=== PATIENT | female | born 1950 | race Caucasian/White ===

== ENCOUNTER 2018-11-06 21:48 | Inpatient (IN) | payer BC, MEDICARE ==
[2018-11-06] MEDS ORDERED: Ondansetron ODT 4 MG TAB PO PRN (23:15)
[2018-11-06] MEDS ORDERED: Acetaminophen 325 MG TAB PO PRN (23:15)
[2018-11-06] MEDS ORDERED: Ondansetron PF 4 MG/2 ML Vial IVP PRN (23:15)
[2018-11-06 23:17] VITALS: BMI 25.2
[2018-11-06 23:30] LABS: #Lymphocytes 0.8 thou/uL (1.20-3.40); #Monocytes 0.4 thou/uL (0.11-0.59); #Neutrophils 2.9 thou/uL (1.40-6.50); %Basophils 0.6 % (0.0-1.0); %Eosinophils 0.4 % (0.0-10.0); %Lymphocytes 19.6 % (21.0-51.0); %Monocytes 10.4 % (0.0-10.0); %Neutrophils 69.1 % (42.0-75.0); Mean Corpuscular HGB CONC 33.8 g/dL (32.0-36.0); Mean Corpuscular Hemoglobin 28.6 pg (27.0-31.0); Mean Corpuscular Volume 84.7 fL (78.0-98.0); Mean Platelet Volume 7.3 fL (7.4-10.4); Platelet Count 100 thou/uL (130-400); RBC Distribution Width 15.2 % (11.5-14.5); Red Blood Cell (RBC) Count 1.75 mill/uL (4.20-5.40); White Blood Cell (WBC) Count 4.2 thou/uL (4.8-10.8)
[2018-11-07] MEDS: Cyclobenzaprine 10 MG TAB PO PRN (00:54)
[2018-11-07] MEDS ORDERED: Diclofenac Sodium 50 MG DR TAB PO PRN (03:49)
--- NOTE | 2018-11-07 04:56 | HP ---
CODE STATUS: Full code. TIME OF EVALUATION: 2300 hours. PRIMARY CARE PHYSICIAN: Sherlyn Root MD CHIEF COMPLAINT: Feeling lightheaded and fall. HISTORY OF PRESENT ILLNESS: This is a 68-year-old female patient, who came to the hospital after having an episode of a fall. The patient reported that she does not recall having a total loss of consciousness; however, she did recall having feeling lightheaded, for that reason she fell. She got a fracture in her left upper extremity and she recovered quickly. She was found to have a hemoglobin of 5. She reported that she had the same problem in the past and had been seen by weight loss consultant, however, no official diagnosis had been done. She reported that she recovered with the hemoglobin going up to the range of 10 spontaneously. Today, she was found to have hemoglobin in the same range, given some blood transfusion since the patient most likely has symptomatic anemia, for that reason she fell. REVIEW OF SYSTEMS: CONSTITUTIONAL: No fever or chills. The patient did have generalized weakness. RESPIRATORY: No cough, sputum production, or shortness of breath. CARDIOVASCULAR: No chest pain or palpitation. GASTROINTESTINAL: No nausea, vomiting, diarrhea, or abdominal pain. PHLEBOTOMY SUPERVISOR: No dizziness. The patient was lightheaded, that is why she got the fall. GENITOURINARY: No burning on urination. EXTREMITIES: Left upper extremity has decreased range of motion, pain, and swelling secondary to fall. All other systems were reviewed and negative except for the findings mentioned above. PAST MEDICAL HISTORY: Positive for chronic anemia. PAST SURGICAL HISTORY: Colonoscopy 3 years ago. FAMILY HISTORY: Reviewed, noncontributory for current presentation. ALLERGIES: NO REPORTED ALLERGIES. REPORTED MEDICATIONS: Cyclobenzaprine, diclofenac sodium, lisinopril. PHYSICAL EXAMINATION: VITAL SIGNS: On presentation, the patient presented with temperature 98.9, respiratory rate was 16, oxygen saturation was 99, heart rate was 119 on initial presentation and has improved now, and blood pressure 110/55. GENERAL APPEARANCE: The patient is alert, oriented, not in acute distress. HEENT: Eyes, normal conjunctivae. Moist oral mucosa. Anicteric. RESPIRATORY: Bilateral air entry. No rales. No wheezes. Symmetric expansion. CARDIOVASCULAR: The patient has tachycardia, regular rhythm. No murmurs. No gallops. Bilateral leg edema. ABDOMEN: Soft. Normal bowel sounds. MUSCULOSKELETAL: Baseline range of motion and strength except for the left upper extremity, where she had a fracture of the left shoulder. SKIN: Warm, intact. No pallor. No rash. No redness. Peripheral pulses are present. Capillary refill seems to be intact. NEUROLOGIC: No evidence of any new focal weakness. Cranial nerves seems to be intact. PSYCHIATRIC: The patient is in good mood. No anxiety. Optimal judgment. IMAGING STUDIES: EKG was reviewed. The patient has sinus tachycardia at the rate of 119. QRS interval was normal. QT corrected was normal. The patient has a left shoulder x-ray that showed fracture through the surgical neck of the humerus with displacement of the humeral shaft fracture fragment as discussed above. LABORATORY DATA: Labs were reviewed. The patient has white count of 5.3, hemoglobin of 5, hematocrit 17, MCV 87, and platelets 142. CMP; sodium 136, CO2 of 22, potassium 3.9, chloride 102, glucose 104, calcium 9.5, BUN 22, creatinine 0.8, alkaline phosphatase 76, ALT 49, and AST 70. D-dimer was done and it was high. Chest x-ray showed no acute finding. ASSESSMENT AND PLAN: The patient will be placed in the hospital with following medical problems: 1. Severe anemia. The patient has a hemoglobin of 5. This is a chronic problem, has been present before, had resolved by itself. We will transfuse 2 units, we will monitor. The patient has been clinically stable, looks like this is a chronic problem. 2. The patient has left fracture of the humeral head, the patient already got an immobilization of the left upper extremity, this is something like can be followed as outpatient unless otherwise specified by Orthopedics. 3. Positive D-dimer. The patient had a near-syncope episode, presented with tachycardia. We will order CT angio to rule out pulmonary embolism. We will follow and treat accordingly. 4. Controlled hypertension. Reconcile home medications. Adjust treatment as needed. 5. Deep venous thrombosis prophylaxis. Job ID: [id number]
[2018-11-07] MEDS ORDERED: Calcium Carbonate 500 MG ChewTAB PO PRN (07:18)
[2018-11-07] MEDS ORDERED: Bisacodyl 10 MG SUPP PR PRN (07:18)
[2018-11-07] MEDS ORDERED: Zolpidem Tartrate 5 MG TAB PO PRN (07:18)
[2018-11-07] MEDS ORDERED: Loratadine 10 MG TAB PO PRN (07:18)
[2018-11-07] MEDS ORDERED: Diabetic Tussin 200 MG/10 ML UDCUP PO PRN (07:18)
[2018-11-07] MEDS ORDERED: Sodium Chloride 0.65% Nasal 44 ML BOT EA NARE PRN (07:18)
[2018-11-07] MEDS ORDERED: Artificial Tears 18 DROP/0.9 ML EA EYE PRN (07:18)
[2018-11-07] MEDS ORDERED: hydrALAZINE 20 MG/ML VIAL SLOW IVP PRN (07:18)
[2018-11-07] MEDS ORDERED: Bisacodyl 5 MG TAB PO PRN (07:18)
[2018-11-07] MEDS ORDERED: Cepastat Lozenges 1 LOZ PO PRN (07:18)
[2018-11-07] MEDS ORDERED: Loperamide HCl 2 MG CAP PO PRN (07:18)
[2018-11-07 08:25] LABS: Reticulocyte Count 5.2 % (0.5-1.5)
[2018-11-07 08:47] LABS: ALT (SGPT) 41 U/L (8-55); AST (SGOT) 59 U/L (5-34); Albumin 3.1 g/dL (3.4-4.8); Alkaline Phosphatase 85 U/L (40-150); Anion Gap 10 mmol/L (10-20); BUN (Urea Nitrogen) 20 mg/dL (9.8-20.1); Bilirubin, Total 1.3 mg/dL (0.2-1.2); Calc. Creatinine Clearance 77 mL/min (70-130); Calcium 9.7 mg/dL (7.8-10.44); Carbon Dioxide 23 mmol/L (23-31); Chloride 103 mmol/L (98-107); Estimated GFR-MDRD 75; Globulin 2.6 g/dL (2.4-3.5); Glucose 103 mg/dL (80-115); Iron 50 ug/dL (50-170); Iron Binding Capacity, Total 431 mcg/dL (265-497); Potassium 4.4 mmol/L (3.5-5.1); Protein, Total 5.7 g/dL (6.0-8.3); Sodium 132 mmol/L (136-145)
[2018-11-07] MEDS ORDERED: Lisinopril/Hydrochlorothiazide 20/25 mg Tablet PO SCH (09:00)
[2018-11-07] MEDS ORDERED: Prevnar 13-Val Conj/PF 0.5 ML SYRINGE IM ONE (09:00)
[2018-11-07 09:05] LABS: Ferritin 20.36 ng/mL (10-291); Thyroid Stimulating Hormone 2.6853 uIU/mL (0.35-4.94)
[2018-11-07 09:19] LABS: Folate (Folic Acid) 6.6 ng/mL (7.0-31.4)
--- NOTE | 2018-11-07 10:17 | PDOC.PN ---
- Subjective Encounter Start Date: 11/07/18 Encounter Start Time: 08:00 -: old records requested/rev pt has received 2 unit of PRBC , she feels weak, no ramona Patient seen and examined. No new complaints. No overnight events - Objective Resuscitation Status - Order Detail: 11/06/18 23:15 Resuscitation Status Routine Resuscitation Status: FULL: Full Resuscitation Discussed with: pt MAR Reviewed: Yes Vital Signs & Weight: Vital Signs (12 hours) Temp Pulse Pulse Resp BP BP Pulse Ox 11/07/18 07:00 98.5 F 100 18 108/62 95 11/07/18 04:11 97.6 F 103 H 14 117/67 94 L 11/07/18 03:55 98.2 F 104 H 16 109/58 L 94 L 11/07/18 03:48 98.0 F 103 H 16 108/60 94 L 11/07/18 03:28 98.2 F 104 H 16 109/58 L 11/07/18 01:28 99 F 108 H 16 109/58 L 93 L 11/07/18 01:09 98.9 F 119 H 16 110/55 L 99 Weight Weight 156 lb 4.8 oz I&O: 11/06/18 11/07/18 11/08/18 06:59 06:59 06:59 Intake Total 350 Balance 350 Result Diagrams: 11/06/18 23:05 11/07/18 08:11 EKG Reviewed by me: Yes (nsr) Phys Exam - Physical Examination Constitutional: NAD HEENT: PERRLA, moist MMs, sclera anicteric pallor+ Neck: no JVD, supple Respiratory: no wheezing, no rales, no rhonchi Cardiovascular: RRR, no significant murmur, no rub Gastrointestinal: soft, non-tender, no distention, positive bowel sounds Musculoskeletal: no edema, pulses present Neurological: non-focal, normal sensation, moves all 4 limbs Lymphatic: no nodes Psychiatric: normal affect, A&O x 3 Skin: no rash, normal turgor Dx/Plan (1) Symptomatic anemia Code(s): D64.9 - ANEMIA, UNSPECIFIED Status: Acute Comment: iron defi and folate defi (2) Left humeral fracture Code(s): S42.302A - UNSP FRACTURE OF SHAFT OF HUMERUS, LEFT ARM, INIT Status: Acute (3) Thrombocytopenia Code(s): D69.6 - THROMBOCYTOPENIA, UNSPECIFIED Status: Acute (4) Hypertension Code(s): I10 - ESSENTIAL (PRIMARY) HYPERTENSION Status: Chronic - Plan cont current plan of care * Anemia work up sent * will check stool for guiac * will consult GI for endoscopic evaluation * medication reviewed as below * symptomatic treatment * repeat labs tomorrow. Review of Systems - Review of Systems ENT: negative: Ear Pain, Ear Discharge, Nose Pain, Nose Discharge, Nose Congestion, Mouth Pain, Mouth Swelling, Throat Pain, Throat Swelling, Other Respiratory: negative: Cough, Dry, Shortness of Breath, Hemoptysis, SOB with Excertion, Pleuritic Pain, Sputum, Wheezing Cardiovascular: negative: chest pain, palpitations, orthopnea, paroxysmal nocturnal dyspnea, edema, light headedness, other Gastrointestinal: negative: Nausea, Vomiting, Abdominal Pain, Diarrhea, Constipation, Melena, Hematochezia, Other Genitourinary: negative: Dysuria, Frequency, Incontinence, Hematuria, Retention , Other Musculoskeletal: negative: Neck Pain, Shoulder Pain, Arm Pain, Back Pain, Hand Pain, Leg Pain, Foot Pain, Other Skin: negative: Rash, Lesions, Cristian, Bruising, Other - Medications/Allergies Allergies/Adverse Reactions: Allergies Allergy/AdvReac Type Severity Reaction Status Date / Time No Known Drug Allergies Allergy Verified 11/06/18 22:30 Medications: Current Medications Acetaminophen (Tylenol) 650 mg PO Q4H PRN PRN Reason: Headache/Fever/Mild Pain (1-3) Last Admin: 11/07/18 07:26 Dose: 650 mg Hydrocodone Bitart/Acetaminophen ([place] 5/325) 1 tab PO Q4H PRN PRN Reason: Moderate Pain (4-6) Artificial Tears (Tears Naturale) 2 drop EA EYE PRN PRN PRN Reason: Dry Eyes Bisacodyl (Dulcolax) 10 mg [place] DAILYPRN PRN PRN Reason: Constipation Bisacodyl (Dulcolax) 10 mg PO DAILYPRN PRN PRN Reason: Constipation Calcium Carbonate (Tums) 1,000 mg PO Q4H PRN PRN Reason: Heartburn or Indigestion Cyanocobalamin (Vitamin B-12) 1,000 mcg PO DAILY [facility] Cyclobenzaprine HCl (Flexeril) 10 mg PO BIDPRN PRN PRN Reason: Pain Last Admin: 11/07/18 00:54 Dose: 10 mg Folic Acid (Folvite) 1 mg PO DAILY [facility] Guaifenesin (Robitussin Sf) 200 mg PO Q4H PRN PRN Reason: Cough Hydralazine HCl (Apresoline) 10 mg SLOW IVP Q4H PRN PRN Reason: SBP > 180 and HR < 70 Loperamide HCl (Imodium) 2 mg PO PRN PRN PRN Reason: Diarrhea/Loose Stools Loratadine (Claritin) 10 mg PO DAILYPRN PRN PRN Reason: Sinus Symptoms Ondansetron HCl (Zofran Odt) 4 mg PO Q6H PRN PRN Reason: Nausea/Vomiting Ondansetron HCl (Zofran) 4 mg IVP Q6H PRN PRN Reason: Nausea/Vomiting Pantoprazole Sodium (Protonix) 40 mg PO DAILY [facility] Last Admin: 11/07/18 09:11 Dose: 40 mg Senna/Docusate Sodium (Senokot S) 2 tab PO BID PRN PRN Reason: Constipation Sodium Chloride (Flush - Normal Saline) 10 ml IVF PRN PRN PRN Reason: Saline Flush Sodium Chloride ([place] Nasal [place] 0.65%) 0 ml EA NARE QIDPRN PRN PRN Reason: Nasal Congestion Throat Lozenges (Cepastat Lozenges) 1 evangelist PO Q2H PRN PRN Reason: Sore Throat Zolpidem Tartrate (Ambien) 5 mg PO HSPRN PRN PRN Reason: Insomnia
--- NOTE | 2018-11-07 11:11 | CT ---
EXAM: CTA of the chest HISTORY: Shortness of breath; left humeral fracture. Elevated d-dimer. COMPARISON: None TECHNIQUE: Multiple contiguous axial images were obtained a CTA of the chest with contrast per pulmon nba embolism protocol. 3-D oblique MIP reformats and direct coronal reformats were performed. FINDINGS: HEART: Normal in size without focal cardiac abnormality. PULMONARY ARTERIES: Normal in caliber without filling defects to suggest pulmonary emboli. MEDIASTINUM: No hilar or mediastinal lymphadenopathy. LUNGS: No focal infiltrates or masses. Left basilar atelectasis. PLEURAL SPACE: No pleural effusion or pneumothorax. CHEST WALL SOFT TISSUES: Unremarkable VISUALIZED OSSEOUS STRUCTURES: Left proximal humerus fracture with surrounding soft tissue swelling. Degenerative changes in the spine. VISUALIZED SUBDIAPHRAGMATIC STRUCTURES: The spleen is enlarged measuring 14.9 cm in length. There is a 2.2 cm right renal cyst. The liver appears nodular and cirrhotic. IMPRESSION: 1. No evidence of pulmonary thromboembolism 2. Cirrhosis with sequela of portal hypertension 3. Left humerus fracture 4. Right renal cyst
--- NOTE | 2018-11-07 13:17 | RAD ---
EXAM: 2 views of the left shoulder HISTORY: Shoulder pain COMPARISON: None FINDINGS: There is a fracture of the proximal diaphysis of the humerus. No dislocation is seen. No de generative changes are present. No soft tissue swelling is seen. The visualized thorax is unremarkable. IMPRESSION: Left proximal humerus fracture.
[2018-11-07] MEDS: HYDROcodone/Acetaminophen 5/325 mg Tablet PO PRN ×2 (15:34→20:32)
[2018-11-07] MEDS ORDERED: ISOVUE-370 76%-LOCM 1 ML ONE (15:40)
[2018-11-07 15:46] LABS: Bilirubin Negative (Negative); Blood, Urine Negative (Negative); Clarity CLEAR (Clear); Glucose, Urine (Dipstick) Negative (Negative); Leukocyte Negative (Negative); Nitrite Negative (Negative); Protein, Urine (Dipstick) Negative (Neg-Trace); Specific Gravity, Urine 1.016 (1.002-1.036); pH, Urine 7.5 (5.0-9.0)
[2018-11-07] MEDS ORDERED: GoLYTELY 4,000 ml Bottle PO SCH (18:15)
[2018-11-07 19:04] LABS: Hemoglobin 7.4 g/dL (12.0-16.0)
--- NOTE | 2018-11-07 22:41 | CON ---
DATE OF CONSULTATION: 11/07/2018 CHIEF COMPLAINT: Anemia. HISTORY OF PRESENT ILLNESS: Ms. Nieto is a 68-year-old woman who came into the emergency room after she had a fall and felt lightheaded and dizzy preceding that. She was found to have severe anemia with a hemoglobin of 5 during evaluation in the ER. She also had a fracture of the left proximal humerus and is in a sling for that. She has had no nausea or vomiting. She had 2 black stools over the last month. She has had no abdominal pain, diarrhea, constipation, or blood in the stool. She has had some sciatic back pain and was started on diclofenac and cyclobenzaprine several days ago. PAST MEDICAL HISTORY: Positive for hypertension. PAST SURGICAL HISTORY: She had colonoscopy in August of [address] Richardson, this was normal. FAMILY HISTORY: Positive for colon cancer in her maternal uncle and maternal grandfather. SOCIAL HISTORY: No alcohol, tobacco, or drugs. ALLERGIES: NO KNOWN DRUG ALLERGIES. MEDICATIONS: Prior to admission: 1. Lisinopril for no more than a week. 2. She has been on diclofenac and cyclobenzaprine. REVIEW OF SYSTEMS: Negative x10 systems reviewed except as stated in history of present illness. PHYSICAL EXAMINATION: VITAL SIGNS: Temperature is 98.5, pulse 99, blood pressure 112/59. GENERAL: She is in no acute distress. She is alert and oriented x3. EYES: Have no scleral icterus. Oropharynx is clear without lesions. NECK: No cervical or supraclavicular lymphadenopathy. LUNGS: Clear to auscultation bilaterally. HEART: Regular rate and rhythm without murmur. ABDOMEN: Soft, nontender, and nondistended. Bowel sounds are present. No hepatomegaly. EXTREMITIES: No lower extremity edema. LABORATORY DATA: White blood cell count 4.2, hemoglobin 5.0, platelets 100. Reticulocyte count 5.2, creatinine 0.76, iron 50, TIBC 431, ferritin 20.36. Bilirubin 1.3, AST 59, ALT 41, alkaline phosphatase 85, albumin 3.1. IMPRESSION: 1. Severe iron deficiency anemia without significant overt bleeding. We will need to rule out gastrointestinal bleeding source. 2. Pancytopenia with low white blood cell count, hemoglobin and platelet count. Her platelets and white count have been low chronically. However, her last hemoglobin in 2015 was 12.8. 3. Mild elevation of the liver function test. The AST is greater than the ALT with a mildly elevated bilirubin. Her albumin is a little low. INR is 1.2. We should plan for ultrasound of the liver and viral hepatitis screen for initial workup. 4. We will want to include the spleen size in the ultrasound as well. RECOMMENDATIONS: 1. EGD and colonoscopy tomorrow. 2. Ultrasound of the abdomen. 3. We will start with the viral hepatitis panel. Job ID: [id number]
[2018-11-08] MEDS: HYDROcodone/Acetaminophen 5/325 mg Tablet PO PRN ×5 (03:55→23:22)
[2018-11-08 05:25] LABS: #Lymphocytes 0.5 thou/uL (1.20-3.40); #Monocytes 0.3 thou/uL (0.11-0.59); #Neutrophils 1.9 thou/uL (1.40-6.50); %Basophils 0.6 % (0.0-1.0); %Eosinophils 1.7 % (0.0-10.0); %Lymphocytes 17.3 % (21.0-51.0); %Monocytes 10.3 % (0.0-10.0); %Neutrophils 70.1 % (42.0-75.0); Hemoglobin 8.4 g/dL (12.0-16.0); Mean Corpuscular HGB CONC 34.9 g/dL (32.0-36.0); Mean Corpuscular Hemoglobin 30.4 pg (27.0-31.0); Mean Platelet Volume 7.2 fL (7.4-10.4); Platelet Count 77 thou/uL (130-400); RBC Distribution Width 14.9 % (11.5-14.5); Red Blood Cell (RBC) Count 2.75 mill/uL (4.20-5.40); White Blood Cell (WBC) Count 2.7 thou/uL (4.8-10.8)
[2018-11-08 05:27] LABS: ALT (SGPT) 46 U/L (8-55); AST (SGOT) 72 U/L (5-34); Albumin 3.4 g/dL (3.4-4.8); Alkaline Phosphatase 89 U/L (40-150); Anion Gap 13 mmol/L (10-20); BUN (Urea Nitrogen) 14 mg/dL (9.8-20.1); Bilirubin, Total 2.1 mg/dL (0.2-1.2); Calc. Creatinine Clearance 77 mL/min (70-130); Calcium 9.3 mg/dL (7.8-10.44); Carbon Dioxide 26 mmol/L (23-31); Chloride 93 mmol/L (98-107); Estimated GFR-MDRD 75; Globulin 2.5 g/dL (2.4-3.5); Glucose 108 mg/dL (80-115); Potassium 3.5 mmol/L (3.5-5.1); Protein, Total 5.9 g/dL (6.0-8.3); Sodium 128 mmol/L (136-145)
[2018-11-08 05:53] LABS: HBSAB Concentration 1.91 mIU/mL; HBSAg Index 0.27 S/CO (0-0.99); Hep B Core Total Ab Non-Reactive (NonReactive); Hep B Surf AB Non-Reactive (NonReactive); Hep B Surf Ag Non-Reactive S/CO (NonReactive); Hep C IgG Ab Non-Reactive (NonReactive); Hep C Index 0.08 S/CO (0-0.79)
--- NOTE | 2018-11-08 08:42 | CON ---
DATE OF CONSULTATION: 11/08/2018 This is Josephine Carrero PA-C dictating a report for Lalito Britton MD. REASON FOR CONSULTATION: Left proximal humerus fracture. CONSULTING PHYSICIAN: Dr. Lalito Britton. HISTORY OF PRESENT ILLNESS: This is a 68-year-old female, who came to the hospital 2 days ago for weakness and having a fall at home. The patient states that she was re-quan her house when she felt dizzy and lightheaded. She fell and hurt her left upper extremity. She has been admitted for anemia after she was found to have a hemoglobin of 5 at an outside facility emergency department and transferred to our facility. Since her admission, she has been given several units of blood. Her hemoglobin is now up to 8. She is receiving an EGD today. Currently at bedside , the patient states she is right-hand dominant. She complains of left upper extremity pain. This is worse with movement and relieved with rest. She has been in a sling since being in the hospital. She denies any numbness or tingling. She did not have any other injuries at the time of her fall. PAST MEDICAL HISTORY: Significant for chronic anemia. SURGICAL HISTORY: Colonoscopy 3 years ago. FAMILY HISTORY: Reviewed and noncontributory. SOCIAL HISTORY: Denies any alcohol, tobacco use, or drugs. ALLERGIES: NO KNOWN DRUG ALLERGIES. REVIEW OF SYSTEMS: A 10-point review of systems conducted and otherwise negative except for stated above. PHYSICAL EXAMINATION: VITAL SIGNS: Current vital signs show a blood pressure of 109/64, temperature of 98.2, pulse of 96, and respiratory rate of 18. GENERAL: The patient is awake and alert. She is in no apparent distress. She is pleasant and cooperative with exam today. HEENT: Normocephalic and atraumatic. NECK: Supple. Trachea midline. LUNGS: Breathing nonlabored. EXTREMITIES: The left upper extremity was evaluated. There is a sling intact to the arm. There is ecchymosis and soft tissue swelling present over the proximal humerus area. This is tender to palpation. The patient is able to move all digits. Distal neurovascular status is intact. All the other extremities were evaluated and no obvious injuries are noted. LABORATORY DATA: Reviewed, which shows hospital admission hemoglobin and hematocrit of 5.0 and 14.8. Today, her hemoglobin and hematocrit are 8.4 and 23.9. DIAGNOSTIC STUDIES: Radiographic imaging taken yesterday shows evidence of a proximal 2-part humerus fracture with displacement and overlapping. ASSESSMENT: Left proximal humerus fracture with displacement. PLAN: At this time, Dr. Britton and I have reviewed the x-rays today. We would like to remove the sling and allow gravity to pull this arm hopefully and reduce the displacement. The patient is going for an EGD today. We would like to give this 1 week's time and see how she does. See her back in the clinic in 1 week and make a decision at that point for surgery or nonoperative care. We will perform new x- rays in the clinic at that time. In the meantime, we will remove the sling when she returns back from her EGD. We will order a shoulder immobilizer that allows for gravity to pull at the elbow. Job ID: [id number] [facility]
[2018-11-08] MEDS: Folic Acid 1 MG TAB PO SCH (09:06)
[2018-11-08] MEDS: Cyanocobalamin (Vitamin B-12) 1,000 MCG TAB PO SCH (09:06)
--- NOTE | 2018-11-08 09:13 | ULT ---
US Abdominal: 11/08/2018 8:00 AM CLINICAL HISTORY: Pancytopenia and elevated LFTs. STUDY: Complete abdominal ultrasound COMPARISON: None. FINDINGS: Liver: Size: Normal. Echogenicity: Normal. Contour: Nodular consistent with cirrhosis. Mass: None. Common bile duct: 5 mm Gallbladder: Normal. Pancreas: Mild prominence of the pancreatic duct measuring 3 mm. Inferior vena cava: Normal in caliber Aorta: Normal in caliber Spleen: No focal lesions. Spleen measuring 15.6 cm in length. Right kidney: No pelvicalyceal dilatation. Right kidney measuring 9.8 cm in length. Right renal cyst measuring 1.8 cm in size. Left kidney: No pelvicalyceal dilatation. Right kidney measuring 9.9 cm in length. IMPRESSION: 1. Cirrhotic liver with sequelae of portal hypertension 2. Right renal cyst
--- NOTE | 2018-11-08 09:58 | PDOC.PN ---
- Subjective Encounter Start Date: 11/08/18 Encounter Start Time: 08:30 Patient seen and examined. No new complaints. No overnight events - Objective Resuscitation Status - Order Detail: 11/06/18 23:15 Resuscitation Status Routine Resuscitation Status: FULL: Full Resuscitation Discussed with: pt PALMA Reviewed: Yes Vital Signs & Weight: Vital Signs (12 hours) Temp Pulse Pulse Resp BP BP Pulse Ox 11/08/18 08:00 98.4 F 103 H 17 119/85 96 11/08/18 04:00 98.2 F 96 18 109/64 98 11/08/18 03:45 99.6 F 95 18 147/82 H 93 L 11/07/18 23:13 97.4 F L 94 16 141/80 H Weight Weight 156 lb 4.8 oz I&O: 11/07/18 11/08/18 11/09/18 06:59 06:59 06:59 Intake Total 350 1300 Output Total 800 Balance 350 500 Result Diagrams: 11/08/18 04:19 11/08/18 04:19 Radiology Reviewed by me: Yes (CTA chest , US abdomen noted) EKG Reviewed by me: Yes (nsr) Phys Exam - Physical Examination Constitutional: NAD HEENT: PERRLA, moist MMs, sclera anicteric Neck: no JVD, supple Respiratory: no wheezing, no rales, no rhonchi Cardiovascular: RRR, no significant murmur, no rub Gastrointestinal: soft, non-tender, no distention, positive bowel sounds Musculoskeletal: no edema, pulses present Neurological: non-focal, normal sensation, moves all 4 limbs Lymphatic: no nodes Psychiatric: normal affect, A&O x 3 Skin: no rash, normal turgor Dx/Plan (1) Symptomatic anemia Code(s): D64.9 - ANEMIA, UNSPECIFIED Status: Acute Comment: iron defi and folate defi (2) Left humeral fracture Code(s): S42.302A - UNSP FRACTURE OF SHAFT OF HUMERUS, LEFT ARM, INIT Status: Acute (3) Thrombocytopenia Code(s): D69.6 - THROMBOCYTOPENIA, UNSPECIFIED Status: Acute (4) Hypertension Code(s): I10 - ESSENTIAL (PRIMARY) HYPERTENSION Status: Chronic (5) Cirrhosis of liver Code(s): K74.60 - UNSPECIFIED CIRRHOSIS OF LIVER Status: Chronic Qualifiers: Hepatic cirrhosis type: alcoholic cirrhosis (6) Pancytopenia Code(s): D61.818 - OTHER PANCYTOPENIA Status: Chronic (7) Folate deficiency Code(s): E53.8 - DEFICIENCY OF OTHER SPECIFIED B GROUP VITAMINS Status: Chronic - Plan cont current plan of care * suspecting alcoholic cirrhosis given her history of alcohol abuse in past * today EGD and colonoscopy * medication reviewed as below * symptomatic treatment * Dc tele * transfer to medical * repeat labs tomorrow. Review of Systems - Review of Systems ENT: negative: Ear Pain, Ear Discharge, Nose Pain, Nose Discharge, Nose Congestion, Mouth Pain, Mouth Swelling, Throat Pain, Throat Swelling, Other Respiratory: negative: Cough, Dry, Shortness of Breath, Hemoptysis, SOB with Excertion, Pleuritic Pain, Sputum, Wheezing Cardiovascular: negative: chest pain, palpitations, orthopnea, paroxysmal nocturnal dyspnea, edema, light headedness, other Gastrointestinal: negative: Nausea, Vomiting, Abdominal Pain, Diarrhea, Constipation, Melena, Hematochezia, Other Genitourinary: negative: Dysuria, Frequency, Incontinence, Hematuria, Retention , Other Musculoskeletal: negative: Neck Pain, Shoulder Pain, Arm Pain, Back Pain, Hand Pain, Leg Pain, Foot Pain, Other Skin: negative: Rash, Lesions, Cristian, Bruising, Other - Medications/Allergies Allergies/Adverse Reactions: Allergies Allergy/AdvReac Type Severity Reaction Status Date / Time No Known Drug Allergies Allergy Verified 11/06/18 22:30 Medications: Current Medications Acetaminophen (Tylenol) 650 mg PO Q4H PRN PRN Reason: Headache/Fever/Mild Pain (1-3) Last Admin: 11/07/18 07:26 Dose: 650 mg Hydrocodone Bitart/Acetaminophen ([place] 5/325) 1 tab PO Q4H PRN PRN Reason: Moderate Pain (4-6) Last Admin: 11/08/18 09:06 Dose: 1 tab Artificial Tears (Tears Naturale) 2 drop EA EYE PRN PRN PRN Reason: Dry Eyes Bisacodyl (Dulcolax) 10 mg [place] DAILYPRN PRN PRN Reason: Constipation Bisacodyl (Dulcolax) 10 mg PO DAILYPRN PRN PRN Reason: Constipation Calcium Carbonate (Tums) 1,000 mg PO Q4H PRN PRN Reason: Heartburn or Indigestion Cyanocobalamin (Vitamin B-12) 1,000 mcg PO DAILY [facility] Last Admin: 11/08/18 09:06 Dose: 1,000 mcg Cyclobenzaprine HCl (Flexeril) 10 mg PO BIDPRN PRN PRN Reason: Pain Last Admin: 11/07/18 00:54 Dose: 10 mg Folic Acid (Folvite) 1 mg PO DAILY [facility] Last Admin: 11/08/18 09:06 Dose: 1 mg Guaifenesin (Robitussin Sf) 200 mg PO Q4H PRN PRN Reason: Cough Hydralazine HCl (Apresoline) 10 mg SLOW IVP Q4H PRN PRN Reason: SBP > 180 and HR < 70 Loperamide HCl (Imodium) 2 mg PO PRN PRN PRN Reason: Diarrhea/Loose Stools Loratadine (Claritin) 10 mg PO DAILYPRN PRN PRN Reason: Sinus Symptoms Ondansetron HCl (Zofran Odt) 4 mg PO Q6H PRN PRN Reason: Nausea/Vomiting Ondansetron HCl (Zofran) 4 mg IVP Q6H PRN PRN Reason: Nausea/Vomiting Pantoprazole Sodium (Protonix) 40 mg PO DAILY [facility] Last Admin: 11/08/18 09:06 Dose: 40 mg Senna/Docusate Sodium (Senokot S) 2 tab PO BID PRN PRN Reason: Constipation Sodium Chloride (Flush - Normal Saline) 10 ml IVF PRN PRN PRN Reason: Saline Flush Sodium Chloride ([place] Nasal [place] 0.65%) 0 ml EA NARE QIDPRN PRN PRN Reason: Nasal Congestion Throat Lozenges (Cepastat Lozenges) 1 evangelist PO Q2H PRN PRN Reason: Sore Throat Zolpidem Tartrate (Ambien) 5 mg PO HSPRN PRN PRN Reason: Insomnia
--- NOTE | 2018-11-08 16:25 | OP ---
DATE OF PROCEDURE: 11/08/2018 PROCEDURES PERFORMED: Esophagogastroduodenoscopy with biopsy and colonoscopy with control of hemorrhage and snare polypectomy. PREOPERATIVE DIAGNOSIS: Severe iron deficiency anemia. DESCRIPTION OF PROCEDURE: Informed consent was obtained from the patient. She was sedated with total intravenous anesthesia. A bite block was placed, and the endoscope was advanced easily to the second portion of the duodenum, and retroflexion was performed in the stomach. The esophagus had grade C ulcerative esophagitis in the distal esophagus. Biopsies were obtained to rule out Cui esophagus. There was a small hiatal hernia present. 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 The stomach had portal hypertensive gastropathy diffusely through the body and fundus, which was moderate to severe. Erythematous gastritis was present in the antrum, and biopsies were obtained to rule out Helicobacter pylori. The pylorus and first and second portions of the duodenum were normal. Duodenal biopsies were taken to rule out celiac disease. The patient was turned around. Rectal exam was performed and revealed external hemorrhoids. The colonoscope was advanced to the cecum, where the ileocecal valve and appendiceal orifice were clearly identified. The preparation quality was excellent. There were four AVMs, arteriovenous malformations, cauterized in the proximal ascending colon. One measured 5 mm in diameter and the others ranged from 2 to 4 mm in diameter. One of these oozed actively prior to cautery. A 5 mm polyp was removed by snare cautery polypectomy from the ascending colon. The remainder of the colonic mucosa was normal. Retroflex views in the rectum were unremarkable. IMPRESSION: 1. Grade C ulcerative esophagitis. Biopsy to rule out Cui esophagus. 2. Small hiatal hernia. 3. Diffuse portal hypertensive gastropathy. 4. Otherwise normal esophagogastroduodenoscopy. 5. Four vascular ectasias cauterized in the ascending colon. One of these is actively bleeding with good hemostasis achieved. 6. A 5 mm ascending colon polyp that was removed by snare cautery polypectomy. 7. Otherwise normal colonoscopy. 8. Cirrhosis of the liver. Ultrasound confirms a nodular contour to the liver with splenomegaly. She also has thrombocytopenia and elevated AST greater than the ALT with elevated bilirubin. RECOMMENDATIONS: 1. Await histopathology. 2. Proton pump inhibitor twice daily. 3. Check alpha-fetoprotein. 4. Further lab workup of the liver pending viral hepatitis screen. Job ID: [id number]
[2018-11-08] MEDS ORDERED: PHENYLEPHRINE-NS 100 MCG/ML 10 ML SYRINGE ONE (16:39)
[2018-11-08] MEDS ORDERED: PROPOFOL 200 MG/20 ML VIAL ONE (16:39)
[2018-11-08] MEDS: Senokot S 8.6-50 MG TAB PO PRN (20:57)
[2018-11-09] MEDS: HYDROcodone/Acetaminophen 5/325 mg Tablet PO PRN ×4 (03:28→20:42)
[2018-11-09 06:08] LABS: #Eosinphils 0.1 thou/uL (0.0-0.7); #Lymphocytes 0.5 thou/uL (1.20-3.40); #Monocytes 0.3 thou/uL (0.11-0.59); #Neutrophils 1.3 thou/uL (1.40-6.50); %Basophils 0.5 % (0.0-1.0); %Eosinophils 3.9 % (0.0-10.0); %Lymphocytes 23.7 % (21.0-51.0); %Monocytes 14.2 % (0.0-10.0); %Neutrophils 57.8 % (42.0-75.0); Hemoglobin 7.6 g/dL (12.0-16.0); Mean Corpuscular HGB CONC 33.5 g/dL (32.0-36.0); Mean Corpuscular Hemoglobin 29.9 pg (27.0-31.0); Mean Corpuscular Volume 89.2 fL (78.0-98.0); Mean Platelet Volume 7.3 fL (7.4-10.4); Platelet Count 69 thou/uL (130-400); RBC Distribution Width 15.3 % (11.5-14.5); Red Blood Cell (RBC) Count 2.53 mill/uL (4.20-5.40); White Blood Cell (WBC) Count 2.2 thou/uL (4.8-10.8)
[2018-11-09 06:25] LABS: Anion Gap 11 mmol/L (10-20); BUN (Urea Nitrogen) 11 mg/dL (9.8-20.1); Calc. Creatinine Clearance 85 mL/min (70-130); Calcium 8.7 mg/dL (7.8-10.44); Carbon Dioxide 23 mmol/L (23-31); Chloride 102 mmol/L (98-107); Estimated GFR-MDRD 84; Glucose 103 mg/dL (80-115); Potassium 3.6 mmol/L (3.5-5.1); Sodium 132 mmol/L (136-145)
[2018-11-09] MEDS: Senokot S 8.6-50 MG TAB PO PRN (09:00)
[2018-11-09] MEDS: Folic Acid 1 MG TAB PO SCH (09:01)
[2018-11-09] MEDS: Cyanocobalamin (Vitamin B-12) 1,000 MCG TAB PO SCH (09:01)
[2018-11-09] MEDS: Cyclobenzaprine 10 MG TAB PO PRN (13:28)
--- NOTE | 2018-11-09 13:50 | PRG ---
DATE OF SERVICE: SUBJECTIVE: Ms. Nieto has had no abdominal pain or diarrhea or overt bleeding. She has no acute complaints this morning. OBJECTIVE: VITAL SIGNS: Temperature is 98.3, pulse 103, blood pressure 112/72. GENERAL: She is in no acute distress. Alert and oriented x3. HEENT: Eyes have no scleral icterus. Oropharynx is clear without lesions. NECK: No cervical or supraclavicular lymphadenopathy. LUNGS: Clear to auscultation bilaterally. HEART: Mildly tachycardic. S1 and S2. ABDOMEN: Soft, nontender, and nondistended. Bowel sounds are present. EXTREMITIES: No lower extremity edema. LABORATORY DATA: Sodium 132, creatinine 0.69, bilirubin 2.1. AST 72, ALT 46, alkaline phosphatase 89, albumin 3.4. White blood cell count 2.2, hemoglobin 7.6, platelets 69,000. Viral hepatitis B and C are negative. IMPRESSION: 1. Chronic anemia of GI blood loss with acute anemia of GI blood loss as well. This is likely secondary to the portal hypertensive gastropathy and severe erosive esophagitis. She also had vascular ectasias in the ascending colon, which had some active bleeding at the time of the procedure and these were cauterized. 2. Cirrhosis of the liver. This is overall a new diagnosis. She has a history of chronic alcohol abuse and alcohol cessation has been encouraged. She states that she has been drinking a lot. She had stopped drinking for a number of years, but has started drinking again more recently. RECOMMENDATIONS: 1. Await histopathology from the biopsies yesterday. 2. Proton pump inhibitor twice daily. 3. Followup alpha fetoprotein. 4. Follow up in GI Clinic for management of her chronic cirrhosis. 5. Given her severe anemia and tachycardia, she will receive an additional unit blood transfusion today. Job ID: [id number]
--- NOTE | 2018-11-09 14:44 | PDOC.PN ---
- Subjective Encounter Start Date: 11/09/18 Encounter Start Time: 10:15 Subjective: pt up in bed no complains - Objective Resuscitation Status - Order Detail: 11/06/18 23:15 Resuscitation Status Routine Resuscitation Status: FULL: Full Resuscitation Discussed with: pt Vital Signs & Weight: Vital Signs (12 hours) Temp Pulse Resp BP Pulse Ox 11/09/18 12:00 98.3 F 103 H 14 112/72 97 11/09/18 08:00 98.3 F 100 18 130/77 100 11/09/18 03:58 98.6 F 108 H 16 122/73 96 Weight Weight 156 lb 4.8 oz I&O: 11/08/18 11/09/18 11/10/18 06:59 06:59 06:59 Intake Total 1300 800 Output Total 800 Balance 500 800 Result Diagrams: 11/09/18 05:31 11/09/18 05:31 Phys Exam - Physical Examination Respiratory: no wheezing, no rales, no rhonchi, wheezing present, clear to auscultation bilateral Cardiovascular: RRR, no significant murmur, no rub, gallop, irregular Gastrointestinal: soft, non-tender, no distention, positive bowel sounds Musculoskeletal: no edema, pulses present, edema present Dx/Plan (1) Symptomatic anemia Code(s): D64.9 - ANEMIA, UNSPECIFIED Status: Acute Comment: iron defi and folate defi (2) Esophagitis Code(s): K20.9 - ESOPHAGITIS, UNSPECIFIED Status: Acute (3) Left humeral fracture Code(s): S42.302A - UNSP FRACTURE OF SHAFT OF HUMERUS, LEFT ARM, INIT Status: Acute (4) Cirrhosis of liver Code(s): K74.60 - UNSPECIFIED CIRRHOSIS OF LIVER Status: Chronic Qualifiers: Hepatic cirrhosis type: alcoholic cirrhosis (5) Tachycardia Code(s): R00.0 - TACHYCARDIA, UNSPECIFIED Status: Acute - Plan pt continues to be tachycardiac, consider giving one unit of blood -: will replace vit D and vit b12. Educated pt aganist alcohol use -: afp pending -: continue ppi * . Review of Systems - Review of Systems Respiratory: negative: Cough, Dry, Shortness of Breath, Hemoptysis, SOB with Excertion, Pleuritic Pain, Sputum, Wheezing Cardiovascular: negative: chest pain, palpitations, orthopnea, paroxysmal nocturnal dyspnea, edema, light headedness, other Gastrointestinal: negative: Nausea, Vomiting, Abdominal Pain, Diarrhea, Constipation, Melena, Hematochezia, Other - Medications/Allergies Allergies/Adverse Reactions: Allergies Allergy/AdvReac Type Severity Reaction Status Date / Time No Known Drug Allergies Allergy Verified 11/06/18 22:30 Medications: Current Medications Acetaminophen (Tylenol) 650 mg PO Q4H PRN PRN Reason: Headache/Fever/Mild Pain (1-3) Last Admin: 11/07/18 07:26 Dose: 650 mg Hydrocodone Bitart/Acetaminophen ([place] 5/325) 1 tab PO Q4H PRN PRN Reason: Moderate Pain (4-6) Last Admin: 11/09/18 12:06 Dose: 1 tab Artificial Tears (Tears Naturale) 2 drop EA EYE PRN PRN PRN Reason: Dry Eyes Bisacodyl (Dulcolax) 10 mg [place] DAILYPRN PRN PRN Reason: Constipation Bisacodyl (Dulcolax) 10 mg PO DAILYPRN PRN PRN Reason: Constipation Calcium Carbonate (Tums) 1,000 mg PO Q4H PRN PRN Reason: Heartburn or Indigestion Cyanocobalamin (Vitamin B-12) 1,000 mcg PO DAILY [facility] Cyclobenzaprine HCl (Flexeril) 10 mg PO BIDPRN PRN PRN Reason: Pain Last Admin: 11/09/18 13:28 Dose: 10 mg Folic Acid (Folvite) 1 mg PO DAILY [facility] Last Admin: 11/09/18 09:01 Dose: 1 mg Guaifenesin (Robitussin Sf) 200 mg PO Q4H PRN PRN Reason: Cough Hydralazine HCl (Apresoline) 10 mg SLOW IVP Q4H PRN PRN Reason: SBP > 180 and HR < 70 Loperamide HCl (Imodium) 2 mg PO PRN PRN PRN Reason: Diarrhea/Loose Stools Loratadine (Claritin) 10 mg PO DAILYPRN PRN PRN Reason: Sinus Symptoms Ondansetron HCl (Zofran Odt) 4 mg PO Q6H PRN PRN Reason: Nausea/Vomiting Ondansetron HCl (Zofran) 4 mg IVP Q6H PRN PRN Reason: Nausea/Vomiting Pantoprazole Sodium (Protonix) 40 mg PO BID IVANA Last Admin: 11/09/18 09:00 Dose: 40 mg Senna/Docusate Sodium (Senokot S) 2 tab PO BID PRN PRN Reason: Constipation Last Admin: 11/09/18 09:00 Dose: 2 tab Sodium Chloride (Flush - Normal Saline) 10 ml IVF PRN PRN PRN Reason: Saline Flush Sodium Chloride ([place] Nasal [place] 0.65%) 0 ml EA NARE QIDPRN PRN PRN Reason: Nasal Congestion Throat Lozenges (Cepastat Lozenges) 1 evangelist PO Q2H PRN PRN Reason: Sore Throat Zolpidem Tartrate (Ambien) 5 mg PO HSPRN PRN PRN Reason: Insomnia
[2018-11-10] MEDS: HYDROcodone/Acetaminophen 5/325 mg Tablet PO PRN ×2 (02:37→10:43)
[2018-11-10] MEDS: Folic Acid 1 MG TAB PO SCH (08:56)
[2018-11-10] MEDS: Senokot S 8.6-50 MG TAB PO PRN (08:56)
[2018-11-10] MEDS ORDERED: Cholecalciferol (Vitamin D3) 400 UNITS TAB PO SCH (09:00)
[2018-11-10] MEDS ORDERED: Cyanocobalamin (Vitamin B-12) 1,000 MCG TAB PO SCH (09:00)
--- NOTE | 2018-11-10 11:02 | PDOC.PN ---
- Subjective Encounter Start Date: 11/10/18 Encounter Start Time: 08:30 -: old records requested/rev Patient seen and examined. No new complaints. No overnight events - Objective Resuscitation Status - Order Detail: 11/06/18 23:15 Resuscitation Status Routine Resuscitation Status: FULL: Full Resuscitation Discussed with: pt PALMA Reviewed: Yes Vital Signs & Weight: Vital Signs (12 hours) Temp Pulse Resp BP Pulse Ox 11/10/18 08:00 97.8 F 97 16 123/81 96 11/10/18 03:57 98.2 F 98 16 115/77 94 L 11/10/18 00:32 98.3 F 99 16 118/78 95 Weight Weight 156 lb 4.8 oz I&O: 11/09/18 11/10/18 11/11/18 06:59 06:59 06:59 Intake Total 800 2480 Balance 800 2480 Result Diagrams: 11/10/18 09:04 11/09/18 05:31 Phys Exam - Physical Examination Constitutional: NAD HEENT: PERRLA, moist MMs, sclera anicteric Neck: no JVD, supple Respiratory: no wheezing, no rales, no rhonchi Cardiovascular: RRR, no significant murmur, no rub Gastrointestinal: soft, non-tender, no distention, positive bowel sounds Musculoskeletal: no edema, pulses present Neurological: non-focal, normal sensation, moves all 4 limbs Lymphatic: no nodes Psychiatric: normal affect, A&O x 3 Skin: no rash, normal turgor Dx/Plan (1) Symptomatic anemia Code(s): D64.9 - ANEMIA, UNSPECIFIED Status: Acute Comment: iron defi and folate defi (2) Left humeral fracture Code(s): S42.302A - UNSP FRACTURE OF SHAFT OF HUMERUS, LEFT ARM, INIT Status: Acute (3) Thrombocytopenia Code(s): D69.6 - THROMBOCYTOPENIA, UNSPECIFIED Status: Acute (4) Hypertension Code(s): I10 - ESSENTIAL (PRIMARY) HYPERTENSION Status: Chronic (5) Cirrhosis of liver Code(s): K74.60 - UNSPECIFIED CIRRHOSIS OF LIVER Status: Chronic Qualifiers: Hepatic cirrhosis type: alcoholic cirrhosis (6) Pancytopenia Code(s): D61.818 - OTHER PANCYTOPENIA Status: Chronic (7) Folate deficiency Code(s): E53.8 - DEFICIENCY OF OTHER SPECIFIED B GROUP VITAMINS Status: Chronic - Plan cont current plan of care * medication reviewed as below * symptomatic treatment * see discharge michelle. Review of Systems - Review of Systems ENT: negative: Ear Pain, Ear Discharge, Nose Pain, Nose Discharge, Nose Congestion, Mouth Pain, Mouth Swelling, Throat Pain, Throat Swelling, Other Respiratory: negative: Cough, Dry, Shortness of Breath, Hemoptysis, SOB with Excertion, Pleuritic Pain, Sputum, Wheezing Cardiovascular: negative: chest pain, palpitations, orthopnea, paroxysmal nocturnal dyspnea, edema, light headedness, other Gastrointestinal: negative: Nausea, Vomiting, Abdominal Pain, Diarrhea, Constipation, Melena, Hematochezia, Other Genitourinary: negative: Dysuria, Frequency, Incontinence, Hematuria, Retention , Other Musculoskeletal: negative: Neck Pain, Shoulder Pain, Arm Pain, Back Pain, Hand Pain, Leg Pain, Foot Pain, Other - Medications/Allergies Allergies/Adverse Reactions: Allergies Allergy/AdvReac Type Severity Reaction Status Date / Time No Known Drug Allergies Allergy Verified 11/06/18 22:30 Medications: Current Medications Acetaminophen (Tylenol) 650 mg PO Q4H PRN PRN Reason: Headache/Fever/Mild Pain (1-3) Last Admin: 11/07/18 07:26 Dose: 650 mg Hydrocodone Bitart/Acetaminophen ([place] 5/325) 1 tab PO Q4H PRN PRN Reason: Moderate Pain (4-6) Last Admin: 11/10/18 10:43 Dose: 1 tab Artificial Tears (Tears Naturale) 2 drop EA EYE PRN PRN PRN Reason: Dry Eyes Bisacodyl (Dulcolax) 10 mg ND DAILYPRN PRN PRN Reason: Constipation Bisacodyl (Dulcolax) 10 mg PO DAILYPRN PRN PRN Reason: Constipation Calcium Carbonate (Tums) 1,000 mg PO Q4H PRN PRN Reason: Heartburn or Indigestion Cholecalciferol (Vitamin D) 400 units PO DAILY [facility] Last Admin: 11/10/18 08:56 Dose: 400 units Cyanocobalamin (Vitamin B-12) 1,000 mcg PO DAILY [facility] Last Admin: 11/10/18 08:56 Dose: 1,000 mcg Cyclobenzaprine HCl (Flexeril) 10 mg PO BIDPRN PRN PRN Reason: Pain Last Admin: 11/09/18 13:28 Dose: 10 mg Ergocalciferol (Drisdol) 1.25 mg PO Q7DAYS [facility] Folic Acid (Folvite) 1 mg PO DAILY [facility] Last Admin: 11/10/18 08:56 Dose: 1 mg Guaifenesin (Robitussin Sf) 200 mg PO Q4H PRN PRN Reason: Cough Hydralazine HCl (Apresoline) 10 mg SLOW IVP Q4H PRN PRN Reason: SBP > 180 and HR < 70 Loperamide HCl (Imodium) 2 mg PO PRN PRN PRN Reason: Diarrhea/Loose Stools Loratadine (Claritin) 10 mg PO DAILYPRN PRN PRN Reason: Sinus Symptoms Ondansetron HCl (Zofran Odt) 4 mg PO Q6H PRN PRN Reason: Nausea/Vomiting Ondansetron HCl (Zofran) 4 mg IVP Q6H PRN PRN Reason: Nausea/Vomiting Pantoprazole Sodium (Protonix) 40 mg PO BID [facility] Last Admin: 11/10/18 08:56 Dose: 40 mg Senna/Docusate Sodium (Senokot S) 2 tab PO BID PRN PRN Reason: Constipation Last Admin: 11/10/18 08:56 Dose: 2 tab Sodium Chloride (Flush - Normal Saline) 10 ml IVF PRN PRN PRN Reason: Saline Flush Sodium Chloride ([place] Nasal [place] 0.65%) 0 ml EA NARE QIDPRN PRN PRN Reason: Nasal Congestion Throat Lozenges (Cepastat Lozenges) 1 evangelist PO Q2H PRN PRN Reason: Sore Throat Zolpidem Tartrate (Ambien) 5 mg PO HSPRN PRN PRN Reason: Insomnia
[2018-11-10 12:13] VITALS: BP 116/78; TEMP 97.7
--- NOTE | 2018-11-10 12:27 | DIS ---
DATE OF ADMISSION: 11/06/2018 DATE OF DISCHARGE: 11/10/2018 PRIMARY CARE PHYSICIAN: Sherlyn Root MD DISCHARGE DISPOSITION: Home. PRIMARY DISCHARGE DIAGNOSES: Symptomatic iron deficiency anemia, folate deficiency, ulcerative esophagitis, left humeral fracture after mechanical fall, new diagnosis of cirrhosis of liver, folate deficiency, pancytopenia due to cirrhosis, and vitamin D deficiency. SECONDARY DISCHARGE DIAGNOSES: Hypertension and history of alcohol abuse. PRIMARY PROCEDURE/OPERATION: EGD was performed by Dr. Lua and colonoscopy was performed by Dr. Lua. RADIOLOGICAL INVESTIGATION: CT angiography negative for PE. Abdominal ultrasound was consistent with cirrhosis of liver. SIGNIFICANT LABORATORY DATA: Hemoglobin 9.0, creatinine 0.69. Urinalysis normal. Hepatitis profile negative. DISCHARGE MEDICATIONS: 1. Flexeril 10 mg b.i.d. p.r.n. 2. Tylenol No. 3 one or two tablets q.6 hourly p.r.n. 3. Drisdol 1.25 mg p.o. every 7 days. 4. Vitamin B12 of 1000 mcg p.o. daily. 5. Folic acid 1 mg daily. 6. Corgard 20 mg p.o. daily. 7. Protonix 40 mg p.o. b.i.d. CONTRAINDICATION: None. CODE STATUS: Full code. INPATIENT BRAILLE CODER: Dr. Cal Lua was consulted for symptomatic anemia. Dr. Britton was consulted for a humeral fracture. TEST RESULTS PENDING ON DISCHARGE: None. ALLERGIES: NO KNOWN DRUG ALLERGIES. DISCHARGE PLAN: Posthospital, the patient will follow up with Dr. Cal Lua in 1 or 2 weeks. The patient will follow up with Dr. Lalito Britton in 1 week. The patient will make appointment with primary care physician in 1 week. HOSPITAL COURSE: A 68-year-old female with above-mentioned medical problem, who had mechanical fall and subsequently, she developed left humeral fracture. She was also having symptomatic anemia. Her hemoglobin on admission 5.0. She was given total 4 units of blood transfusion and by the time of discharge, her hemoglobin was 9.0. The patient underwent upper endoscopy and the patient was found with ulcerative esophagitis as well as colonoscopy showed AV malformation and polyp, which was biopsied and removed. The patient's H and H remained stable. The patient was also found with a new diagnosis of cirrhosis of liver, which we are presuming from alcohol because of her previous alcohol history. Because of cirrhosis, she has pancytopenia. Hepatitis profile came back negative. As the patient has iron deficiency, folate deficiency, and vitamin D deficiency, we checked celiac sprue evaluation. Pathology report is pending from upper endoscopy. The patient is advised to follow up with contract administration manager. She will need follow up with alpha-fetoprotein level. She will need periodic clinical monitoring. The patient is ambulatory, tolerating p.o. well and she is completely asymptomatic. She is expressing her wish to go home. I prescribed Tylenol No. 3 for pain. I advised her to avoid NSAIDs. The patient will follow up with orthopedic physician after discharge. Job ID: [id number]
[2018-11-16] MEDS ORDERED: Ergocalciferol 1.25 MG(50,000 UNITS) CAP PO SCH (09:00)
== END 2018-11-10 14:45 | disposition home or self-care (01) | DRG 432 ==
LOC: 2NO 21:48 → INTOOBSV 21:48 → OBSVTOIN 21:48 → 2NO 22:06 → SJJU 11-08 13:21
PROVIDERS: ADMIT Hospitalist; ATTEND Hospitalist
PROC: 30233N1 Transfusion of Nonautologous Red Blood Cells into Peripheral Vein, Percutaneous Approach (ICD-10-PCS; 2018-11-07)
PROC: 0DB98ZX Excision of Duodenum, Via Natural or Artificial Opening Endoscopic, Diagnostic (ICD-10-PCS; principal; 2018-11-08)
PROC: 0DB78ZX Excision of Stomach, Pylorus, Via Natural or Artificial Opening Endoscopic, Diagnostic (ICD-10-PCS; 2018-11-08)
PROC: 0W3P8ZZ Control Bleeding in Gastrointestinal Tract, Via Natural or Artificial Opening Endoscopic (ICD-10-PCS; 2018-11-08)
PROC: 0DBK8ZZ Excision of Ascending Colon, Via Natural or Artificial Opening Endoscopic (ICD-10-PCS; 2018-11-08)
DX: K70.30 Alcoholic cirrhosis of liver without ascites (principal); K31.811 Angiodysplasia of stomach and duodenum with bleeding; K22.11 Ulcer of esophagus with bleeding; D61.818 Other pancytopenia; K76.6 Portal hypertension; D50.9 Iron deficiency anemia, unspecified; I10 Essential (primary) hypertension; E53.8 Deficiency of other specified B group vitamins; K63.5 Polyp of colon; F10.10 Alcohol abuse, uncomplicated; K44.9 Diaphragmatic hernia without obstruction or gangrene; K31.89 Other diseases of stomach and duodenum; S42.202D Unspecified fracture of upper end of left humerus, subsequent encounter for fracture with routine healing; Z79.899 Other long term (current) drug therapy
CPT/HCPCS: 36415; 36430; 71275; 76700; 80048; 80053; 81003; 82105; 82306; 82607; 82728; 82746; 83540; 83550; 83615; 84443; 85014; 85018; 85025; 85046; 86704; 86706; 86708; 86803; 86850; 86900; 86901; 87340; 88305; 88312; 88313; 90471; 90670; G0009; J2704; P9016; Q9966

== ENCOUNTER → 2018-11-20 | Day surgery (SDC) | payer BC ==
[2018-11-19 10:26] VITALS: BMI 24.2
[~2018-11-20] MED LIST: Fentanyl 100 MCG/2 ML VIAL ONE
[2018-11-20 07:04] LABS: Hemoglobin 8.4 g/dL (12.0-16.0); Mean Corpuscular HGB CONC 33.2 g/dL (32.0-36.0); Mean Corpuscular Hemoglobin 28.9 pg (27.0-31.0); Mean Corpuscular Volume 86.9 fL (78.0-98.0); Mean Platelet Volume 7.4 fL (7.4-10.4); Platelet Count 104 thou/uL (130-400); RBC Distribution Width 14.9 % (11.5-14.5); White Blood Cell (WBC) Count 2.8 thou/uL (4.8-10.8)
[2018-11-20 07:08] LABS: INR-International Normal Ratio 1.2; Prothrombin Time 14.8 SEC (12.0-14.7)
[2018-11-20 07:09] LABS: PTT 36.7 SEC (22.9-36.1)
[2018-11-20 07:15] LABS: ALT (SGPT) 46 U/L (8-55); AST (SGOT) 62 U/L (5-34); Albumin 3.6 g/dL (3.4-4.8); Alkaline Phosphatase 207 U/L (40-150); Bilirubin, Direct 0.4 mg/dL (0.1-0.3); Bilirubin, Total 0.9 mg/dL (0.2-1.2); Protein, Total 6.8 g/dL (6.0-8.3)
[2018-11-20 07:36] LABS: Band 3 % (5-11); Eosinophils 7 % (0-10); Lymphocytes 25 % (21-51); MDiff Complete? YES; Monocytes 13 % (0-10); Neutrophil 51 % (42-75); Platelet Morphology Comment Appears Decreased; Polychromasia SLIGHT = 2-3 cells (100X) (0-2/hpf)
--- NOTE | 2018-11-20 09:58 | RAD ---
THREE VIEWS LEFT HUMERUS: COMPARISON: 11/07/2018. HISTORY: Left humeral fracture. FINDINGS/IMPRESSION: Limited intraoperative fluoroscopic views of the left humerus were submitted for interpretation. The patient is status post intramedullary edith fixation of a proximal humeral fracture. No perihardware lucency is seen. POS: DARIEL
--- NOTE | 2018-11-20 11:38 | OP ---
DATE OF PROCEDURE: 11/20/2018 PROCEDURE PERFORMED: Left proximal humerus intramedullary nail. PREOPERATIVE DIAGNOSIS: Left two-part proximal humerus fracture. POSTOPERATIVE DIAGNOSIS: Left two-part proximal humerus fracture. COMPLICATIONS: None. ESTIMATED BLOOD LOSS: 50 mL. INSURANCE FOLLOW UP SPECIALIST: Akshat Taylor PA-C IMPLANT: Synthes 9-mm proximal humeral nail with helical blade. INDICATIONS: Ms. Nieto is a 68-year-old female, who fell and fractured her left proximal humerus. She had a syncopal episode. At that time, she was worked up and found to have GI bleeding. This has been corrected. She has been indicated for intramedullary nail of the humerus to restore anatomic alignment and hopefully promote healing. Risks have been reviewed in detail. She has elected to proceed with the operation. DESCRIPTION OF PROCEDURE: Ms. Nieto was identified in the preoperative holding area. Her correct extremity was marked. She was carried to the operating room. She was positioned supine. General anesthesia was induced. A multidisciplinary time-out was performed. The left upper extremity was prepped and draped in sterile fashion. We began the procedure with a deltoid split incision over the lateral shoulder and dissected down to the deltoid fascia, which was opened. We bluntly split the deltoid and this brought us into the subacromial space. We then made a small longitudinal split in the rotator cuff over the tip of the greater tuberosity. We then inserted a guidewire into the humeral head. We checked the position on an intraoperative x-ray in orthogonal planes. At this point, we overdrilled the guidewire. We then passed our intramedullary nail from proximal to distal across the fracture site, reducing the fracture into its anatomic position. At this point, we placed a proximal humeral screw as well as the helical blade followed by a distal humeral screw. We then locked the blade in place with an appropriate end cap. We took final x-ray images. We then thoroughly irrigated with copious lavage. We then closed appropriately in layers including the rotator cuff, deltoid fascia, subcutaneous tissue, and skin. Sterile dressing was applied. The patient was taken to the recovery room at this point in good condition. Job ID: [id number]
== END ==
LOC: SDC 06:08
PROVIDERS: ATTEND Orthopaedic Surgery
PROC: 0PSD06Z Reposition Left Humeral Head with Intramedullary Internal Fixation Device, Open Approach (ICD-10-PCS; principal; 2018-11-20)
DX: S42.202A Unspecified fracture of upper end of left humerus, initial encounter for closed fracture (principal); I10 Essential (primary) hypertension; Z79.899 Other long term (current) drug therapy; Z91.011 Allergy to milk products; W19.XXXA Unspecified fall, initial encounter
CPT/HCPCS: 36415; 76000; 80076; 85025; 85610; 85730; 86850; 86900; 86901; C1713; C1769; J0690; J3010

== ENCOUNTER 2018-12-25 09:26 | Observation (INO) | payer BC, MEDICARE ==
[2018-12-25] MEDS ORDERED: Acetaminophen 325 MG TAB PO SCH (11:00)
[2018-12-25] MEDS ORDERED: Acetaminophen 325 MG TAB PO PRN (16:11)
[2018-12-25 21:58] VITALS: BP 146/89; TEMP 98.7
== END 2018-12-25 22:25 | disposition home or self-care (01) ==
LOC: UNDOADMIN 10:03 → 2NO 10:03 → UNDODISIN 22:25
PROVIDERS: ADMIT Internal Medicine Gastroenterology; ATTEND Internal Medicine Gastroenterology
DX: D64.9 Anemia, unspecified (principal); D61.818 Other pancytopenia; K70.30 Alcoholic cirrhosis of liver without ascites
CPT/HCPCS: 36415; 36430; 86850; 86870; 86900; 86901; 86922; 99212; G0463; P9016

== ENCOUNTER 2019-04-07 12:55 | Outpatient (CLI) | payer BC ==
--- NOTE | 2019-04-07 14:08 | MMO ---
Bilateral MAMMO Bilat Screen [facility]. CLINICAL HISTORY: Patient is 68 years old and is seen for screening. The patient has the following family history of breast cancer: mother, at age 58, at 62. The patient has no personal history of cancer. VIEWS: The views performed were: bilateral craniocaudal with tomosynthesis and bilateral mediolateral oblique with tomosynthesis. FILMS COMPARED: The present examination has been compared to prior imaging studies performed at [facility] on 11/06/2012, 11/17/2013, 11/29/2014 and 02/08/2016. This study has been interpreted with the assistance of computer-aided detection. MAMMOGRAM FINDINGS: There are scattered fibroglandular densities. Finding 1: There is a stable focal asymmetry seen in the right breast. Finding 2: There are stable vascular calcifications seen in both breasts. There are no suspicious masses, suspicious calcifications, or new areas of architectural distortion. IMPRESSION: THERE IS NO MAMMOGRAPHIC EVIDENCE OF MALIGNANCY. A ROUTINE FOLLOW-UP MAMMOGRAM IN 1 YEAR IS RECOMMENDED. THE RESULTS OF THIS EXAM WERE SENT TO THE PATIENT. ACR BI-RADS Category 2 - Benign finding MAMMOGRAPHY NOTE: 1. A negative mammogram report should not delay a biopsy if a dominant of clinically suspicious mass is present. 2. Approximately 10% to 15% of breast cancers are not detected by mammography. 3. Adenosis and dense breasts may obscure an underlying neoplasm. Reported by: MAULIK RIBEIRO MD Electonically Signed: [id number]
--- NOTE | 2019-04-07 15:13 | BD ---
BONE DENSITOMETRY USING DEXA: Date: 04/07/19 HISTORY: Postmenopausal screening for osteoporosis. Other disorders of bone density and structure, multiple. FINDINGS: Lumbar Spine: BMD (g/cm2) L1 0.937 T-Score: -0.5 Z-Score: 1.4 L2 0.903 T-Score: -1.1 Z-Score: 1.0 L3 0.979 T-Score: -1.0 Z-Score: 1.3 L4 0.984 T-Score: -0.7 Z-Score: 1.6 L1-L4 0.950 T-Score: -0.9 Z-Score: 1.3 Femoral Neck: 0.658 T-Score: -1.7 Z-Score: 0.1 Total Femur: 0.698 T-Score: -2.0 Z-Score: -0.5 There has been interval reduction of 2.1% in the bone mineral density of the lumbar spine and a reduc tion of 14% proximal femur since 06/27/05. The 10 year fracture risk for a major osteoporotic fracture is 17% and for a hip fracture is 2.8%. IMPRESSION: Osteopenia. POS: DARIEL
== END 2019-04-07 12:56 | disposition home or self-care (01) ==
LOC: BICMAMMO 12:55
PROVIDERS: ATTEND Internal Medicine
DX: Z12.31 Encounter for screening mammogram for malignant neoplasm of breast (principal); M85.89 Other specified disorders of bone density and structure, multiple sites; Z80.3 Family history of malignant neoplasm of breast
CPT/HCPCS: 77063; 77067; 77080

== ENCOUNTER 2019-07-09 08:12 | Outpatient (CLI) | payer BC ==
--- NOTE | 2019-07-09 08:51 | ULT ---
Hepatic sonogram with duplex evaluation HISTORY: Cirrhosis. Portal venous hypertension. FINDINGS: Gallbladder is distended without focal abnormality evident. Common duct is 0.6 cm. Liver has a heterogeneous echotexture and nodular contour. No focal mass. It measures up to 17.0 cm. No free fluid. Spleen measures up to 17.0 cm without focal abnormality. Incidental note of a tiny cyst at the base of the pancreatic neck. Portal vein is distended. Good color and spectral Doppler flow directed towards the liver. Hepatic ve nous flow is towards the IVC. Good color and spectral Doppler flow within the hepatic and splenic arteries. IMPRESSION: Cirrhotic appearance of the liver. Findings of portal venous hypertension include moderate splenomegaly and portal venous distention. Appropriate directional portal venous flow.
== END 2019-07-09 08:13 | disposition home or self-care (01) ==
LOC: BICULT 08:12
PROVIDERS: ATTEND Internal Medicine Gastroenterology
DX: K22.10 Ulcer of esophagus without bleeding (principal); K70.30 Alcoholic cirrhosis of liver without ascites; D50.0 Iron deficiency anemia secondary to blood loss (chronic); K76.6 Portal hypertension; R16.1 Splenomegaly, not elsewhere classified; Z86.010 Personal history of colon polyps
CPT/HCPCS: 76705

== ENCOUNTER 2019-07-11 09:25 | Inpatient (IN) | payer BC, MEDICARE ==
[~2019-07-11 09:25] MED LIST changes: +Dexamethasone 20 MG/5 ML VIAL ONE; -Fentanyl 100 MCG/2 ML VIAL ONE; +Glycopyrrolate 0.2 MG/ML 5 ML SYRINGE ONE; +Lidocaine 1% PF 5 ML VIAL ONE; +Ondansetron PF 4 MG/2 ML Vial ONE; +PHENYLEPHRINE-NS 100 MCG/ML 10 ML SYRINGE ONE; +PROPOFOL 200 MG/20 ML VIAL ONE; +Rocuronium Bromide 10 MG/ML (10ML VIAL) ONE
[2019-07-11 10:03] LABS: INR-International Normal Ratio 1.4; Prothrombin Time 16.7 SEC (12.0-14.7)
[2019-07-11 10:04] LABS: PTT 27.3 SEC (22.9-36.1)
[2019-07-11 10:07] LABS: #Basophils 0.1 thou/uL (0.0-0.2); #Eosinphils 0.1 thou/uL (0.0-0.7); #Lymphocytes 2.7 thou/uL (1.20-3.40); #Monocytes 0.6 thou/uL (0.11-0.59); #Neutrophils 6.1 thou/uL (1.40-6.50); %Eosinophils 0.5 % (0.0-10.0); %Lymphocytes 28.5 % (21.0-51.0); %Monocytes 6.5 % (0.0-10.0); %Neutrophils 63.5 % (42.0-75.0); Hemoglobin 4.6 g/dL (12.0-16.0); Mean Corpuscular HGB CONC 33.5 g/dL (32.0-36.0); Mean Corpuscular Hemoglobin 29.9 pg (27.0-31.0); Mean Corpuscular Volume 89.3 fL (78.0-98.0); Mean Platelet Volume 7.7 fL (7.4-10.4); Platelet Count 173 thou/uL (130-400); RBC Distribution Width 15.2 % (11.5-14.5); Red Blood Cell (RBC) Count 1.53 mill/uL (4.20-5.40); White Blood Cell (WBC) Count 9.6 thou/uL (4.8-10.8)
[2019-07-11 10:17] LABS: ALT (SGPT) 18 U/L (8-55); AST (SGOT) 22 U/L (5-34); Albumin 2.5 g/dL (3.4-4.8); Alkaline Phosphatase 59 U/L (40-110); Anion Gap 14 mmol/L (10-20); BUN (Urea Nitrogen) 56 mg/dL (9.8-20.1); Bilirubin, Total 0.7 mg/dL (0.2-1.2); Calc. Creatinine Clearance 0 mL/min (70-130); Carbon Dioxide 19 mmol/L (23-31); Chloride 107 mmol/L (98-107); Estimated GFR-MDRD 73; Globulin 1.9 g/dL (2.4-3.5); Glucose 168 mg/dL (83-110); Potassium 4.3 mmol/L (3.5-5.1); Protein, Total 4.4 g/dL (6.0-8.3); Sodium 136 mmol/L (136-145)
[2019-07-11] MEDS ORDERED: Pantoprazole 40 MG VIAL ONE (10:22)
[2019-07-11] MEDS ORDERED: Octreotide Acetate 1,250 MCG in Sodium Chloride 0.9% 250 ML 250 ML IVPB SCH ×2 (10:30→12:00)
[2019-07-11] MEDS ORDERED: Pantoprazole 80 MG, Admixture Fee 1 EACH in Sodium Chloride 0.9% 100 ML IVPB SCH (10:30)
--- NOTE | 2019-07-11 10:34 | RAD ---
EXAM: Single view of the chest HISTORY: Hematemesis COMPARISON: 03/24/2014 FINDINGS: Single view of the chest shows a normal sized cardiomediastinal silhouette. There is no yoshi dence of consolidation, mass, or pleural effusion. The bones are unremarkable. IMPRESSION: No evidence of acute cardiopulmonary disease
[2019-07-11] MEDS ORDERED: Ondansetron PF 4 MG/2 ML Vial IVP PRN ×2 (11:57→19:44)
[2019-07-11] MEDS ORDERED: Ondansetron ODT 4 MG TAB PO PRN ×2 (11:57→19:44)
[2019-07-11] MEDS ORDERED: cefTRIAXone\\ROCEPHIN 2 GM VIAL ONE (12:45)
[2019-07-11 12:56] LABS: Bilirubin Negative (Negative); Blood, Urine Negative (Negative); Clarity Clear (Clear); Glucose, Urine (Dipstick) Normal (Negative); Leukocyte Negative Leu/uL (Negative); Nitrite Negative (Negative); Protein, Urine (Dipstick) Negative (Neg-Trace); Urobilinogen Normal mg/dL (Less than 2)
[2019-07-11] MEDS ORDERED: SUGAMMADEX SODIUM 500 MG/5 ML VIAL ONE (15:30)
[2019-07-11] MEDS ORDERED: Promethazine HCl 25 MG/ML VIAL SLOW IVP PRN (16:40)
[2019-07-11] MEDS ORDERED: Promethazine HCl 25 MG/ML VIAL IM PRN (16:40)
[2019-07-11] MEDS ORDERED: Ondansetron HCl/PF 4 MG/2 ML Vial IVP PRN (16:40)
[2019-07-11 18:17] VITALS: BMI 25.0
[2019-07-11] MEDS ORDERED: Dextrose 5 %-0.45 % NaCl 1,000 ML IV SCH (19:00)
--- NOTE | 2019-07-11 19:44 | HP ---
CHIEF COMPLAINT: GI bleed. HISTORY OF PRESENT ILLNESS: This patient is a 69-year-old female with a history of alcohol related cirrhosis. She has a history of chronic anemia and previously followed by Dr. Lua. She had a prior admission to the hospital in October 2018, at which time the patient had a fall related to severe anemia and had a humeral fracture, and she underwent endoscopy at that time which revealed some ulcerative esophagitis and had some ectasias of the colon that was cauterized. The patient has been on iron, subsequently reports the iron caused her to feel bad and caused some constipation, but she ultimately changed that to Geritol and has been feeling better since that time. She reports that a couple of days ago, she had an episode of vomiting during the night, but did not pay attention to the emesis in the night and was unsure if that represented blood or not. Today, the patient reports she got up to go to the bathroom, and on her way there, she became lightheaded and felt herself going to the ground. She then had a full syncopal event. She woke up to her calling 911. She apparently had hematemesis during that interval. She has not had any vomiting since that time. She denies any abdominal pain and currently her only complaint is thirst. REVIEW OF SYSTEMS: She denies any fevers and chills. She has been eating and drinking normally up until this episode. Again, she noted the constipation with the iron, but otherwise bowels have been pretty normal. PAST MEDICAL HISTORY: As above, alcoholic cirrhosis with portal hypertension and portal hypertensive gastropathy with ulcerative esophagitis and history of colonic AVMs. She has a history of a lumbar epidural and paraspinal abscess with Staph that was treated apparently with antibiotics after some possible needle drainage. She also had a recent bronchitis episode. PAST SURGICAL HISTORY: ORIF of the left humerus. FAMILY HISTORY: Mother of cancer. Father of an [place]. SOCIAL HISTORY: The patient quit actively drinking in 2004. She denies tobacco or drugs. She is . She is full code and her would be her surrogate decision maker should that become necessary. ALLERGIES: DAIRY. CURRENT MEDICATIONS: 1. Pantoprazole 40 mg daily. 2. Geritol liquid daily. 3. Lisinopril 10 mg daily. 4. Bactrim DS b.i.d. 5. Tessalon Perles. PHYSICAL EXAMINATION: VITAL SIGNS: Most recent set of vitals; BP 95/57, pulse 111, respirations 19, temperature is 98.1, O2 saturation 96% on room air. GENERAL APPEARANCE: Age-appropriate female. She is in no distress. She is awake, alert, oriented, pleasant, cooperative. HEENT: PAUL. No OP lesions. Very pale. Oral mucosa slightly dry. NECK: Supple and symmetric. HEART: Regular without murmurs. Tachycardic. LUNGS: Clear to auscultation bilaterally with good chest wall expansion and air exchange. ABDOMEN: Soft, nontender, and nondistended. Positive bowel sounds. No masses. No organomegaly. EXTREMITIES: No cyanosis, clubbing, or edema. PSYCH: Normal affect and behavior, very pleasant. NEUROLOGIC: She appears to be intact with no focal deficits. Moves extremities spontaneously. Cranial nerves intact and cognition appears to be normal. LABORATORY DATA: White count 9.6, hemoglobin 4.6, platelets 173. INR 1.4. PTT 27.3. Sodium 136, potassium 4.3, chloride 104, CO2 of 19, BUN 56, creatinine 0.78, glucose 168. AST is 22, ALT 18, and alkaline phosphatase 59, albumin 2.5. Troponin 0.012. IMAGING STUDIES: Chest x-ray shows no acute cardiopulmonary processes. Stool for occult blood is negative. IMPRESSION AND PLAN: 1. Upper GI bleed, acute with severe anemia. The patient has been typed and crossed for 6 units. She has been ordered for transfusion of 3 of those units. She is on octreotide drip, IV Protonix, and has received Rocephin. The ER physician did speak with the on-call concrete products dispatcher, Dr. Goel, who will consider endoscopy once the patient is stabilized. The patient will be admitted to the ICU. 2. Chronic alcoholic cirrhosis with portal hypertension, stable, chronic. 3. Hypertension. We will hold off on any antihypertensive medications for now. 4. Chronic severe iron deficiency anemia. The patient will need to be back on her supplementation when she is stabilized and back on p.o. Job ID: [id number] [facility]
[2019-07-11] MEDS: Dextrose 5 %-0.45 % NaCl 1,000 ML IV SCH (20:23)
[2019-07-11] MEDS: Pantoprazole 40 MG VIAL IVP SCH (20:23)
[2019-07-11 20:34] LABS: Hemoglobin 10.8 g/dL (12.0-16.0)
[2019-07-11] MEDS ORDERED: Pantoprazole 40 MG VIAL IVP SCH (21:00)
--- NOTE | 2019-07-11 23:41 | OP ---
DATE OF PROCEDURE: 07/11/2019 PROCEDURE PERFORMED: Esophagogastroduodenoscopy. PREOPERATIVE DIAGNOSES: Acute upper gastrointestinal bleeding, history of liver cirrhosis, and history of portal gastropathy. POSTOPERATIVE DIAGNOSES: 1. Markedly edematous and erythematous friable gastroesophageal junction, irregular Z-line, possibly Cui's mucosa. 2. No esophageal varices seen. 3. No Yaneth-Johnson tear seen. 4. Large amount of blood clots and some old blood in the fundus with some food material. The stomach is completely full of coffee-ground material, but no fresh blood seen. 5. Normal duodenum. DESCRIPTION OF PROCEDURE: The patient was initially placed on her left lateral position, and a bite block was placed. The patient was given sedation by Anesthesia Department. The scope was advanced down to the esophagus, into the stomach. The patient had large amount of blood loss. Because of risk of perforation, the scope removed right away. The patient was tubed by the Anesthesia Department and was given sedation. The patient was again turned onto left lateral position, and a bite block was placed. A [employer]ax videogastroscope under direct vision passed down the upper esophageal sphincter into the distal esophagus and stomach. I do not see any varicosities, any fresh blood in the stomach. She had edematous and erythematous mucosa suggestive of esophagitis. The Z-line was somewhat irregular. There was no Yaneth-Johnson tear seen. Upon in the stomach, the patient was found to have a large amount of blood clots and also flecks of coffee material in the stomach throughout. I do not see any fresh blood. Water was excellently used for irrigate and wash out. I do not see any underlying pathology and the same thing was repeated on the duodenum. No fresh blood seen in duodenum. Attention was turned to the stomach as per the gastric fundus. Several blood clots were removed and suctioned out. Water was used to irrigate and wash out. There was some solid food material which could not be dislodged. However, after removing all the clots, I do not see any actually fresh blood, any bleeding site. The mucosa over the proximal stomach was edematous and erythematous. The scope advanced back into descending duodenum and was brought back again. Again, careful exam of the fundus showed no active bleeding except some retained food debris. Again, the careful attention was made to the GE junction and distal esophagus, no bleeding site seen. The stomach decompressed, and the scope removed. RECOMMENDATIONS: Are as follows, 1. Keep the patient n.p.o. 2. Transfuse p.r.n. 3. IV PPI. 4. IV octreotide. 5. N.p.o. 6. Second-look EGD tomorrow. Job ID: [id number] [facility]
--- NOTE | 2019-07-11 23:43 | CON ---
DATE OF CONSULTATION: 07/11/2019 PRIMARY CARE DOCTOR: Dr. Humberto Adams. REASON FOR CONSULTATION: History of hematemesis, anemia due to blood loss. HISTORY OF PRESENT ILLNESS: Ms. Linda Alvares is a very pleasant 69-year-old female who was hospitalized in October of 2018 with a fracture following a fall at home. She had left humerus fracture and was seen by Dr. Steven Britton. She underwent surgery by Dr. Britton. She was found to have anemia during last admission. She was seen by Dr. Cal Lua. This was done in October of 2018. As per the operative report by Dr. Lua, she had grade 3 erosive esophagitis, but no esophageal varices and she also had mild portal gastropathy. She had a colonoscopy and was found to have bleeding from the ascending colon and the AVM and was cauterized. She also had a colon polyp removed from the ascending colon,_. The patient has been taking iron supplement. She had an abdominal sonogram ordered by Dr. Lua, this was done 2 days ago. She tells me she had ultrasonogram on Friday. The night before she felt safe and in fact, she had almost fainted. The patient had no nausea or vomiting. The patient again had a near fainting spell today and she said she vomited some blood and blood clots. She was brought to the ER and was found to be profoundly anemic. She was given 2 units of blood and she is on 3rd unit of blood at the present time. Interestingly, she denies any abdominal pain. No dysphagia or odynophagia. No acid reflux symptoms. She also noticed some dark stool over the last 24 hours. During the last admission, this was October of 2018 she had anemia which was quite severe. The hemoglobin was almost 5 g during the last admission. Today it has dropped almost to 4.3. In the ER, she had no nausea or vomiting. A rectal exam done by ER MD showed dark stools, stool test positive for blood. She had no other relevant history. ALLERGIES: NO DRUG ALLERGIES. SOCIAL HISTORY: The patient is . Does not smoke. She has history of alcohol abuse over the years. She used to drink alcohol heavily until 2004 and stopped drinking for a while. She got back on drinking again. She quit drinking in October of 2018 for the last admission. No history of drug abuse. MEDICAL ILLNESSES: 1. Hypertension. 2. Chronic acid reflux diagnosed during the last admission. 3. Pancytopenia. 4. Liver cirrhosis. 5. Erosive esophagitis diagnosed during last admission. 6. Colon polyp. 7. Past medical history of bleeding during the last admission, cauterized. 8. History of epidural abscess in 2013 and was on antibiotics for almost six months as per the patient. 9. History of spinal stenosis. She was seen by the Neurosurgery in the past.. FAMILY HISTORY: No family history of liver disease. No family history of any cancer, stroke or diabetes. MEDICATION LIST: Include: 1. Pantoprazole. 2. Lisinopril. 3. Bactrim. 4. Benzonatate. 5. Geritol. REVIEW OF SYSTEMS: Ten-point system reviewed. CONSTITUTIONAL: No history of weight loss. No fever or chills. No history of any weakness or headache. HEAD: No chronic headache, history of syncope, off and on. No TIA. RESPIRATORY: No history of any chronic cough, except she has been having coughing in the last 1 month. She was seen by Dr. Adams who provided her some antibiotics. The coughing is mostly in the nighttime. During the daytime, she has no cough. No hemoptysis. No dyspnea. CARDIOVASCULAR: No chest pain. No palpitation. No dyspnea, orthopnea, PND. GI: As in history of present illness. : No dysuria, hematuria. MUSCULOSKELETAL: No back pain. No arthralgias, myalgias. NEUROPSYCHIATRY: Denies any depression, anxiety. NEUROLOGIC: History of pancytopenia since 2013 and was seen by Dr. Jorge Washington for hematology input at that time. It was felt the patient has an underlying liver disease, which was confirmed during the last admission. PHYSICAL EXAMINATION: GENERAL: The patient appears pale. She is in no distress. She is awake, alert , oriented to time, place, and person. VITAL SIGNS: Pulse 74 in the ER, but at the present time in the day surgery, it was almost about 88, blood pressure is 110/ 70. HEENT: Conjunctivae are clear. NECK: Supple. No adenitis or thyromegaly noted. CARDIOVASCULAR: First and second heart sounds heard. LUNGS: Clear to auscultation. ABDOMEN: Soft. Abdomen is nondistended. Abdomen is nontender. No organomegaly. No masses. Bowel sounds heard. EXTREMITIES: Reveal no edema. LABORATORY DATA: Shows profound anemia. WBC is 9600, hemoglobin 4.6, hematocrit 13.6, MCV 89.3, platelet count is 173,000, polymorphs 63, lymphocytes 28, monocytes 6. Chemistry panel; lytes are normal, CO2 19, BUN is 56, mostly from GI bleeding. Creatinine 0.78, glucose is 106, calcium 8, bilirubin 0.7, AST 22, ALT 18, alkaline phosphatase 59, albumin is 2.5. Troponin 0.012. IMPRESSION: 1. A 69-year-old female with hematemesis. She had an EGD done [address] Lua, which revealed basically portal gastropathy and also grade 3 esophagitis, she is on pantoprazole. She had no abdominal pain. At present with dizziness and anemia due to blood loss. The patient most likely has bleeding either from varicosities or portal hypertensive gastropathy. 2. Liver cirrhosis documented during last admission, most likely from alcohol abuse. 3. Hypertension. 4. Erosive esophagitis. 5. Colon polyp. 6. Left femur fracture status surgery in October of 2018. RECOMMENDATION: 1. IV PPI. 2. IV Octreotide. 3. Transfuse. 4. Serial H and H. 5. Emergent EGD later on today. Further recommendations depending EGD findings. Job ID: [id number] [facility]
--- NOTE | 2019-07-12 00:11 | CON ---
DATE OF CONSULTATION: 07/11/2019 CONSULTING PHYSICIAN: Malloryist . REASON FOR CONSULTATION: GI bleeding. HISTORY OF PRESENT ILLNESS: The patient is a 69-year-old female, who presented with hematemesis and melena. Today, she was taken to the OR for endoscopy. Nothing was found. She initially had a hemoglobin of 4.5. She received at least 4 units of blood. She is now feeling better. She is not intubated and she is currently hemodynamically stable. PAST MEDICAL HISTORY: 1. Anemia. 2. Recent bronchitis. PAST SURGICAL HISTORY: Unremarkable. SOCIAL HISTORY: Previous heavy drinker, quit 2004. Does not use tobacco products. ALLERGIES: DAIRY PRODUCTS. MEDICATIONS: Prior to admission, Protonix, lisinopril, Bactrim, Tessalon Perles, and multivitamin. REVIEW OF SYSTEMS: Twelve-point review of systems is otherwise negative. PHYSICAL EXAMINATION: VITAL SIGNS: Temperature 95.8, pulse 107, respirations 16, blood pressure 115/67, O2 saturations 97% room air. GENERAL: Awake and alert, no distress. HEENT: Unremarkable except for pale oral mucous membranes. NECK: No JVD. CHEST: Clear to auscultation. CARDIAC: S1 and S2 regular. ABDOMEN: Soft and nontender to palpation. EXTREMITIES: No clubbing, cyanosis, or edema. LABORATORY DATA: White blood cell count 9.6, hematocrit 13.6, and platelet count 173. INR 1.4. Sodium 136, potassium 4.3, chloride 107, CO2 of 19, BUN 56, creatinine 0.7, glucose 168, albumin 2.5. Chest x-ray shows no mass, effusion, or infiltrate. ASSESSMENT: Upper gastrointestinal bleeding. PLAN: The patient is being treated appropriately with Protonix, octreotide transfusion, and serial H and H monitoring. She will be monitored in the ICU overnight. We will follow. Job ID: [id number]
[2019-07-12] MEDS: Acetaminophen 500 MG TAB PO PRN ×3 (02:12→23:24)
[2019-07-12 02:45] LABS: #Basophils 0.1 thou/uL (0.0-0.2); #Lymphocytes 1.4 thou/uL (1.20-3.40); #Monocytes 0.8 thou/uL (0.11-0.59); #Neutrophils 8.5 thou/uL (1.40-6.50); %Basophils 0.6 % (0.0-1.0); %Eosinophils 0.1 % (0.0-10.0); %Lymphocytes 12.8 % (21.0-51.0); %Monocytes 7.7 % (0.0-10.0); %Neutrophils 78.8 % (42.0-75.0); Mean Corpuscular HGB CONC 34.3 g/dL (32.0-36.0); Mean Corpuscular Hemoglobin 29.1 pg (27.0-31.0); Mean Corpuscular Volume 84.8 fL (78.0-98.0); Mean Platelet Volume 7.4 fL (7.4-10.4); Platelet Count 59 thou/uL (130-400); Platelet Morphology Comment Appears Decreased; RBC Distribution Width 15.8 % (11.5-14.5); RBC Morphology Normal; Red Blood Cell (RBC) Count 3.46 mill/uL (4.20-5.40); White Blood Cell (WBC) Count 10.8 thou/uL (4.8-10.8)
[2019-07-12 03:31] LABS: ALT (SGPT) 19 U/L (8-55); AST (SGOT) 22 U/L (5-34); Albumin 2.9 g/dL (3.4-4.8); Alkaline Phosphatase 62 U/L (40-110); Anion Gap 13 mmol/L (10-20); BUN (Urea Nitrogen) 39 mg/dL (9.8-20.1); Bilirubin, Total 1.7 mg/dL (0.2-1.2); Calc. Creatinine Clearance 71 mL/min (70-130); Carbon Dioxide 19 mmol/L (23-31); Chloride 106 mmol/L (98-107); Estimated GFR-MDRD 73; Globulin 2.1 g/dL (2.4-3.5); Glucose 181 mg/dL (83-110); Potassium 4.7 mmol/L (3.5-5.1); Sodium 133 mmol/L (136-145)
[2019-07-12] MEDS: Dextrose 5 %-0.45 % NaCl 1,000 ML IV SCH (04:58)
[2019-07-12] MEDS: Pantoprazole 40 MG VIAL IVP SCH ×2 (08:09→21:30)
[2019-07-12 08:13] LABS: Hemoglobin 9.5 g/dL (12.0-16.0)
--- NOTE | 2019-07-12 08:46 | PRG ---
DATE OF SERVICE: 07/12/2019 SUBJECTIVE: She did well overnight with no recurrence of bleeding. She is scheduled to go down for another EGD today. OBJECTIVE: VITAL SIGNS: Temperature 98.2, pulse 86, blood pressure 115/63, O2 saturation 97%. HEENT: Unremarkable. NECK: No adenopathy or JVD. CHEST: Clear. CARDIAC: S1 and S2. Regular. ABDOMEN: Soft. EXTREMITIES: No edema. LABORATORY DATA: Sodium 133, potassium 4.7, chloride 106, CO2 of 19, BUN 39, creatinine 0.7, glucose 181. White blood cell count 10.8, hematocrit 29.3, platelet count 59. ASSESSMENT: 1. Gastrointestinal bleeding, which appears to be resolved. 2. Corrected severe anemia. PLAN: She can go to the floor after the EGD. She has no further indication for ICU care at this time provided that findings of EGD look good. Pulmonary will be available as needed. Job ID: [id number]
[2019-07-12] MEDS ORDERED: FLU VACC TS2019-20(65YR UP)/PF 180 MCG/0.5 ML SYRINGE IM ONE (09:00)
[2019-07-12] MEDS: Octreotide Acetate 1,250 MCG in Sodium Chloride 0.9% 250 ML 250 ML IVPB SCH (12:24)
[2019-07-12] MEDS: cefTRIAXone\\ROCEPHIN 1 GM in Sodium Chloride 0.9% 100 ML IVPB SCH (12:24)
[2019-07-12 13:54] LABS: Hemoglobin 9.8 g/dL (12.0-16.0)
--- NOTE | 2019-07-12 21:14 | PDOC.HOSPP ---
- Subjective Subjective: Doing very well. No abdominal pain. - Objective Vital Signs & Weight: Vital Signs (12 hours) Temp Pulse Ox 07/12/19 15:00 98.1 F 07/12/19 11:34 98 07/12/19 11:00 97.8 F Weight Weight 150 lb 2.157 oz Most Recent Monitor Data Heart Rate from ECG 98 NIBP 110/67 NIBP BP-Mean 81 Respiration from ECG 18 SpO2 97 I&O: 07/11/19 07/12/19 07/13/19 06:59 06:59 06:59 Intake Total 1820 1154 Output Total 700 1350 Balance 1120 -196 Result Diagrams: 07/12/19 13:46 07/12/19 02:27 Hospitalist ROS - Medication Medications: Active Medications Generic Name Dose Route Start Last Admin Trade Name Freq PRN Reason Stop Dose Admin Acetaminophen 1,000 mg 07/12/19 01:56 07/12/19 17:33 Tylenol PO 1,000 mg Q6H PRN Administration Pain Octreotide Acetate 1,250 mcg/ 251.25 mls @ 10.05 mls/hr 07/11/19 19:00 12:24 Sodium Chloride IVPB 251.25 mls INF IVANA Administration 50 MCG/HR Ceftriaxone Sodium 1 gm/ 100 mls @ 200 mls/hr 07/12/19 12:00 07/12/19 12:24 Sodium Chloride IVPB 100 mls 1200 IVANA Administration Pantoprazole Sodium 40 mg 07/11/19 21:00 07/12/19 08:09 Protonix IVP 40 mg Q12HR IVANA Administration - Exam General Appearance: NAD, awake alert Heart: RRR, no murmur, no gallops, no rubs, normal peripheral pulses Respiratory: CTAB, no wheezes, no rales, no ronchi, normal chest expansion, no tachypnea, normal percussion Gastrointestinal: soft, non-tender, non-distended, normal bowel sounds, no palpable masses, no hepatomegaly, no splenomegaly, no bruit Extremities: no cyanosis, no clubbing, no edema Skin: normal turgor, no lesions, no rashes Musculoskeletal: normal tone, normal strength, no muscle wasting Psychiatric: normal affect, normal behavior, A&O x 3 Hosp A/P (1) Varix, gastric Code(s): I86.4 - GASTRIC VARICES Status: Acute (2) UGIB (upper gastrointestinal bleed) Code(s): K92.2 - GASTROINTESTINAL HEMORRHAGE, UNSPECIFIED Status: Acute (3) Acute blood loss anemia Code(s): D62 - ACUTE POSTHEMORRHAGIC ANEMIA Status: Acute (4) Alcoholic cirrhosis Code(s): K70.30 - ALCOHOLIC CIRRHOSIS OF LIVER WITHOUT ASCITES Status: Chronic (5) Hypertension Code(s): I10 - ESSENTIAL (PRIMARY) HYPERTENSION Status: Chronic (6) Pancytopenia Code(s): D61.818 - OTHER PANCYTOPENIA Status: Chronic - Plan Had several gastric varicies banded today. Hemoglobin stable. Continue the Octreotide, PPI. Monitor in ICU overnight.
[2019-07-12 21:57] LABS: Hemoglobin 10.3 g/dL (12.0-16.0)
[2019-07-13 04:16] LABS: INR-International Normal Ratio 1.2; Prothrombin Time 15.2 SEC (12.0-14.7)
[2019-07-13 04:27] LABS: #Eosinphils 0.1 thou/uL (0.0-0.7); #Lymphocytes 1.3 thou/uL (1.20-3.40); #Monocytes 0.9 thou/uL (0.11-0.59); #Neutrophils 6.6 thou/uL (1.40-6.50); %Basophils 0.5 % (0.0-1.0); %Eosinophils 0.8 % (0.0-10.0); %Lymphocytes 14.6 % (21.0-51.0); %Monocytes 9.7 % (0.0-10.0); %Neutrophils 74.4 % (42.0-75.0); Hemoglobin 9.8 g/dL (12.0-16.0); Mean Corpuscular HGB CONC 34.1 g/dL (32.0-36.0); Mean Corpuscular Hemoglobin 29.5 pg (27.0-31.0); Mean Corpuscular Volume 86.3 fL (78.0-98.0); Mean Platelet Volume 7.2 fL (7.4-10.4); Platelet Count 71 thou/uL (130-400); RBC Distribution Width 17.2 % (11.5-14.5); Red Blood Cell (RBC) Count 3.33 mill/uL (4.20-5.40); White Blood Cell (WBC) Count 8.9 thou/uL (4.8-10.8)
[2019-07-13 04:38] LABS: ALT (SGPT) 32 U/L (8-55); AST (SGOT) 45 U/L (5-34); Albumin 2.9 g/dL (3.4-4.8); Alkaline Phosphatase 69 U/L (40-110); Anion Gap 8 mmol/L (10-20); BUN (Urea Nitrogen) 26 mg/dL (9.8-20.1); Bilirubin, Total 1.1 mg/dL (0.2-1.2); Calc. Creatinine Clearance 76 mL/min (70-130); Calcium 8.3 mg/dL (7.8-10.44); Carbon Dioxide 21 mmol/L (23-31); Chloride 106 mmol/L (98-107); Estimated GFR-MDRD 79; Globulin 2.1 g/dL (2.4-3.5); Glucose 115 mg/dL (83-110); Potassium 4.1 mmol/L (3.5-5.1); Sodium 131 mmol/L (136-145)
[2019-07-13] MEDS: Acetaminophen 500 MG TAB PO PRN ×3 (06:23→20:44)
[2019-07-13] MEDS: Pantoprazole 40 MG VIAL IVP SCH ×2 (08:20→20:44)
--- NOTE | 2019-07-13 09:13 | OP ---
DATE OF PROCEDURE: 07/12/2019 PROCEDURE PERFORMED: Esophagogastroduodenoscopy with control of hemorrhage. PRE-PROCEDURE DIAGNOSES: 1. History of cirrhosis. 2. Admission with GI bleed. 3. Stable hemoglobin overnight, endoscopy yesterday. 4. Status post esophagogastroduodenoscopy yesterday with blood in the stomach. No bleeding site identified. Asked to perform second look today by Dr. Goel who saw the patient initially yesterday. POSTPROCEDURE DIAGNOSES: 1. Grade 3 esophageal varices with stigmata of recent bleeding with red Joshua signs. No active bleeding. 2. Portal hypertensive gastropathy with no bleeding. No evidence of gastric varices. 3. Normal duodenum. 4. Bands x5 placed on distal esophageal varices with good ablation. RECOMMENDATIONS: 1. Continue octreotide drip. 2. Antibiotics for infection prophylaxis and a cirrhotic with a GI bleed. 3. Monitor H and H q.8 hours, transfuse p.r.n. 4. Monitor renal function and liver function as well. PROCEDURE IN DETAIL: After the patient was informed of the risk, benefits, and possible complications of endoscopy including perforation, reaction to medication, and aspiration, informed consent was obtained. The patient was brought to endoscopy suite, where she was sedated in gradual fashion. Once she was comfortable, a bite block was placed inside the orifice. The endoscope was advanced to the esophagus, stomach, and second and third portions of the duodenum and was slowly removed. There was good visualization of the mucosa. There was no mass lesions or AV malformations identified. In the stomach, there was portal gastropathy seen. There was normal duodenum. There was no blood on retroflexion, no varices, and retroflexion in the stomach. In four views, there was grade 3 varices, 4 columns with red Joshua signs suggestive of high risk for rebleeding or recent bleeding. In light of the previous endoscopy showing active blood in the stomach and no bleeding source, bands were placed x5 in the varices. There was good ablation of these. The patient was brought back to ICU in stable condition. Job ID: [id number]
--- NOTE | 2019-07-13 11:05 | PDOC.HOSPP ---
- Subjective Encounter Date: 07/13/19 Encounter Time: 11:04 Subjective: Feels well. NO complaints. Says she has mild abd. pain. Chronic and normal for her. Tolerating diet. Modest ambulation. - Objective Vital Signs & Weight: Vital Signs (12 hours) Temp Pulse Ox 07/13/19 08:00 97 07/13/19 07:00 98.3 F 07/13/19 04:00 97.8 F 07/13/19 00:00 97.1 F L Weight Weight 150 lb 2.157 oz Most Recent Monitor Data Heart Rate from ECG 94 NIBP 123/74 NIBP BP-Mean 90 Respiration from ECG 20 SpO2 96 I&O: 07/12/19 07/13/19 07/14/19 06:59 06:59 06:59 Intake Total 1820 1764 200 Output Total 700 1825 350 Balance 1120 -61 -150 Result Diagrams: 07/13/19 03:11 07/13/19 03:11 Hospitalist ROS - Medication Medications: Active Medications Generic Name Dose Route Start Last Admin Trade Name Normq PRN Reason Stop Dose Admin Acetaminophen 1,000 mg 07/12/19 01:56 07/13/19 06:23 Tylenol PO 1,000 mg Q6H PRN Administration Pain Octreotide Acetate 1,250 mcg/ 251.25 mls @ 10.05 mls/hr 07/11/19 19:00 12:24 Sodium Chloride IVPB 251.25 mls INF IVANA Administration 50 MCG/HR Ceftriaxone Sodium 1 gm/ 100 mls @ 200 mls/hr 07/12/19 12:00 07/12/19 12:24 Sodium Chloride IVPB 100 mls 1200 IVANA Administration Pantoprazole Sodium 40 mg 07/11/19 21:00 07/13/19 08:20 Protonix IVP 40 mg Q12HR IVANA Administration - Exam General Appearance: NAD, awake alert Heart: RRR, no murmur, no gallops, no rubs, normal peripheral pulses Respiratory: CTAB, no wheezes, no rales, no ronchi, normal chest expansion, no tachypnea, normal percussion Gastrointestinal: soft, non-tender, non-distended, normal bowel sounds, no palpable masses, no hepatomegaly, no splenomegaly, no bruit Extremities: no cyanosis, no clubbing, no edema Musculoskeletal: normal tone Psychiatric: normal affect, normal behavior, A&O x 3 Hosp A/P (1) Varix, gastric Code(s): I86.4 - GASTRIC VARICES Status: Acute (2) UGIB (upper gastrointestinal bleed) Code(s): K92.2 - GASTROINTESTINAL HEMORRHAGE, UNSPECIFIED Status: Acute (3) Acute blood loss anemia Code(s): D62 - ACUTE POSTHEMORRHAGIC ANEMIA Status: Acute (4) Alcoholic cirrhosis Code(s): K70.30 - ALCOHOLIC CIRRHOSIS OF LIVER WITHOUT ASCITES Status: Chronic (5) Hypertension Code(s): I10 - ESSENTIAL (PRIMARY) HYPERTENSION Status: Chronic (6) Pancytopenia Code(s): D61.818 - OTHER PANCYTOPENIA Status: Chronic - Plan Had several gastric varicies banded 07/12. Hemoglobin stable. Continue the Octreotide, PPI. Will discuss with GI. Looks stable for DC when she no longer needs the Octreotide gtt.
[2019-07-13] MEDS: cefTRIAXone\\ROCEPHIN 1 GM in Sodium Chloride 0.9% 100 ML IVPB SCH (11:26)
[2019-07-13] MEDS: Octreotide Acetate 1,250 MCG in Sodium Chloride 0.9% 250 ML 250 ML IVPB SCH (13:45)
--- NOTE | 2019-07-13 18:31 | PRG ---
DATE OF SERVICE: 07/13/2019 SUBJECTIVE: Ms. Nieto is feeling better. She has tolerated clear liquids well today. She had a black stool today. OBJECTIVE: VITAL SIGNS: Temperature 98.2, pulse 94, blood pressure 135/71. GENERAL: She is in no acute distress. Alert and oriented x3. LUNGS: Clear to auscultation bilaterally. HEART: Regular rate and rhythm without murmur. ABDOMEN: Soft, nontender, nondistended. Bowel sounds are present. EXTREMITIES: No lower extremity edema. LABORATORY DATA: White blood cell count 8.9, hemoglobin , platelets 71,000. INR 1.2, bilirubin 1.1. IMPRESSION: 1. Acute gastrointestinal bleed secondary to esophageal varices status post banding yesterday. She had 5 bands placed. She should remain on octreotide through tomorrow afternoon. She can reduce the dose from 50 mcg/hour to 25 mcg/hour tomorrow morning and then continue that dose for 12 hours. 2. Cirrhosis of liver secondary to alcohol abuse. 3. Anemia of acute blood loss. RECOMMENDATIONS: 1. Octreotide to be adjusted as stated above. 2. Continue antibiotics for SBP prophylaxis. Job ID: [id number]
[2019-07-14] MEDS: Acetaminophen 500 MG TAB PO PRN ×4 (03:02→20:20)
[2019-07-14 05:23] LABS: INR-International Normal Ratio 1.3; Prothrombin Time 15.9 SEC (12.0-14.7)
[2019-07-14 05:31] LABS: #Eosinphils 0.2 thou/uL (0.0-0.7); #Lymphocytes 0.9 thou/uL (1.20-3.40); #Monocytes 0.7 thou/uL (0.11-0.59); #Neutrophils 4.2 thou/uL (1.40-6.50); %Eosinophils 2.7 % (0.0-10.0); %Lymphocytes 14.4 % (21.0-51.0); %Monocytes 11.9 % (0.0-10.0); %Neutrophils 70.9 % (42.0-75.0); Hemoglobin 8.5 g/dL (12.0-16.0); Mean Corpuscular HGB CONC 33.4 g/dL (32.0-36.0); Mean Corpuscular Hemoglobin 29.4 pg (27.0-31.0); Mean Corpuscular Volume 88.1 fL (78.0-98.0); Mean Platelet Volume 7.3 fL (7.4-10.4); Platelet Count 62 thou/uL (130-400); RBC Distribution Width 16.9 % (11.5-14.5); White Blood Cell (WBC) Count 5.9 thou/uL (4.8-10.8)
[2019-07-14 05:46] LABS: ALT (SGPT) 27 U/L (8-55); AST (SGOT) 26 U/L (5-34); Albumin 2.6 g/dL (3.4-4.8); Alkaline Phosphatase 62 U/L (40-110); Anion Gap 8 mmol/L (10-20); BUN (Urea Nitrogen) 17 mg/dL (9.8-20.1); Bilirubin, Total 1.1 mg/dL (0.2-1.2); Calc. Creatinine Clearance 76 mL/min (70-130); Calcium 7.8 mg/dL (7.8-10.44); Carbon Dioxide 22 mmol/L (23-31); Chloride 105 mmol/L (98-107); Estimated GFR-MDRD 79; Glucose 110 mg/dL (83-110); Potassium 3.9 mmol/L (3.5-5.1); Protein, Total 4.6 g/dL (6.0-8.3); Sodium 131 mmol/L (136-145)
[2019-07-14] MEDS: Pantoprazole 40 MG VIAL IVP SCH ×2 (08:34→20:21)
--- NOTE | 2019-07-14 11:05 | PDOC.HOSPP ---
- Subjective Encounter Date: 07/14/19 Encounter Time: 11:03 Subjective: Doing very well. Passed some dark stool over night. Abdomen feels less distended. - Objective Vital Signs & Weight: Vital Signs (12 hours) Temp Pulse Resp BP Pulse Ox 07/14/19 07:21 98.7 F 91 16 104/65 95 07/14/19 02:54 98.2 F 97 16 118/70 96 Weight Weight 150 lb 2.157 oz Most Recent Monitor Data Heart Rate from ECG 98 NIBP 119/78 NIBP BP-Mean 91 Respiration from ECG 18 SpO2 98 I&O: 07/13/19 07/14/19 07/15/19 06:59 06:59 06:59 Intake Total 1764 1253.7 980 Output Total 1825 1100 Balance -61 153.7 980 Result Diagrams: 07/14/19 04:40 07/14/19 04:40 Hospitalist ROS - Medication Medications: Active Medications Generic Name Dose Route Start Last Admin Trade Name Freq PRN Reason Stop Dose Admin Acetaminophen 1,000 mg 07/12/19 01:56 07/14/19 08:33 Tylenol PO 1,000 mg Q6H PRN Administration Pain Octreotide Acetate 1,250 mcg/ 251.25 mls @ 10.05 mls/hr 07/11/19 19:00 13:45 Sodium Chloride IVPB 251.25 mls INF IVANA Administration 50 MCG/HR Ceftriaxone Sodium 1 gm/ 100 mls @ 200 mls/hr 07/12/19 12:00 07/13/19 11:26 Sodium Chloride IVPB 100 mls 1200 IVANA Administration Lactulose 20 gm 07/14/19 09:00 07/14/19 08:34 Lactulose PO Not Given DAILY IVANA Pantoprazole Sodium 40 mg 07/11/19 21:00 07/14/19 08:34 Protonix IVP 40 mg Q12HR IVANA Administration - Exam General Appearance: NAD, awake alert General - other findings: Pale Heart: RRR, no murmur, no gallops, no rubs, normal peripheral pulses Respiratory: CTAB, no wheezes, no rales, no ronchi, normal chest expansion, no tachypnea, normal percussion Gastrointestinal: soft, non-tender, normal bowel sounds, no palpable masses, no hepatomegaly, no splenomegaly, no bruit, distended (Slightly.) Extremities: no cyanosis, no clubbing, no edema Musculoskeletal: normal tone Psychiatric: normal affect, normal behavior, A&O x 3 Hosp A/P (1) Varix, gastric Code(s): I86.4 - GASTRIC VARICES Status: Acute (2) UGIB (upper gastrointestinal bleed) Code(s): K92.2 - GASTROINTESTINAL HEMORRHAGE, UNSPECIFIED Status: Acute (3) Acute blood loss anemia Code(s): D62 - ACUTE POSTHEMORRHAGIC ANEMIA Status: Acute (4) Alcoholic cirrhosis Code(s): K70.30 - ALCOHOLIC CIRRHOSIS OF LIVER WITHOUT ASCITES Status: Chronic (5) Hypertension Code(s): I10 - ESSENTIAL (PRIMARY) HYPERTENSION Status: Chronic (6) Pancytopenia Code(s): D61.818 - OTHER PANCYTOPENIA Status: Chronic - Plan Had several gastric varicies banded 07/12. Hemoglobin down a little today. Continue the Octreotide at reduced dose, PPI. Will discuss with GI. Will recheck the hgb later today. Rocephin for SBP prophylaxis. BP stable.
[2019-07-14] MEDS: cefTRIAXone\\ROCEPHIN 1 GM in Sodium Chloride 0.9% 100 ML IVPB SCH (11:36)
[2019-07-14] MEDS ORDERED: Chloraseptic Spray 180 ml Bottle PO PRN (14:39)
--- NOTE | 2019-07-14 14:55 | PRG ---
DATE OF SERVICE: 07/14/2019 SUBJECTIVE: Ms. Nieto was feeling constipated yesterday and we started her on some lactulose. After that, she has had multiple loose dark stools. She no longer has abdominal pressure and constipation sensation. She has had no red blood in the stool. No nausea or vomiting. Primary evaluation finds multiple ulcerations in the back of her throat. OBJECTIVE: VITAL SIGNS: Temperature 98.0, pulse 91, blood pressure 126/75. GENERAL: She is in no acute distress. Alert and oriented x3. LUNGS: Clear to auscultation bilaterally. HEART: Regular rate and rhythm without murmur. ABDOMEN: Soft, mild distention without guarding. Bowel sounds are present. No abdominal tenderness. EXTREMITIES: No lower extremity edema. HEENT: Oropharynx reveals petechiae in the back of the soft palate and ulcerations on the uvula. LABORATORY DATA: INR 1.3. Bilirubin 1.1, AST 26, ALT 27, and alkaline phosphatase 62. IMPRESSION: 1. Cirrhosis of the liver secondary to alcohol abuse. 2. Acute gastrointestinal bleed secondary to esophageal varices status post banding. She is passing some old blood after taking the lactulose, but no signs of ongoing acute bleeding. Her hemoglobin did trend down slightly today, so we have kept her on the octreotide today. 3. Ulcerations on her uvula and soft palate. This could be due to suctioning during the endoscopy. I will request a strep throat swab, but I doubt she has strep throat. We will give some throat lozenges in the meantime. RECOMMENDATIONS: 1. Ceftriaxone for SBP prophylaxis. 2. Octreotide. I believe this can be stopped tomorrow and she can likely discharge home tomorrow. 3. I will discontinue the lactulose since this is now cause some diarrhea for her. She is not encephalopathic. 4. Recheck trend of her hemoglobin tomorrow. Job ID: [id number]
[2019-07-14] MEDS: Octreotide Acetate 1,250 MCG in Sodium Chloride 0.9% 250 ML 250 ML IVPB SCH (15:30)
[2019-07-15] MEDS: Acetaminophen 500 MG TAB PO PRN ×2 (03:57→10:22)
[2019-07-15 05:34] LABS: #Eosinphils 0.2 thou/uL (0.0-0.7); #Lymphocytes 0.8 thou/uL (1.20-3.40); #Monocytes 0.5 thou/uL (0.11-0.59); #Neutrophils 1.9 thou/uL (1.40-6.50); %Basophils 0.8 % (0.0-1.0); %Lymphocytes 23.8 % (21.0-51.0); %Monocytes 14.7 % (0.0-10.0); %Neutrophils 54.7 % (42.0-75.0); Hemoglobin 8.7 g/dL (12.0-16.0); Mean Corpuscular HGB CONC 33.6 g/dL (32.0-36.0); Mean Corpuscular Hemoglobin 29.9 pg (27.0-31.0); Mean Corpuscular Volume 88.8 fL (78.0-98.0); Mean Platelet Volume 7.2 fL (7.4-10.4); Platelet Count 63 thou/uL (130-400); RBC Distribution Width 16.9 % (11.5-14.5); Red Blood Cell (RBC) Count 2.92 mill/uL (4.20-5.40); White Blood Cell (WBC) Count 3.5 thou/uL (4.8-10.8)
[2019-07-15] MEDS: Pantoprazole 40 MG VIAL IVP SCH (08:31)
[2019-07-15 11:45] VITALS: BP 116/72; TEMP 98.1
[2019-07-15] MEDS: cefTRIAXone\\ROCEPHIN 1 GM in Sodium Chloride 0.9% 100 ML IVPB SCH (11:47)
--- NOTE | 2019-07-16 10:28 | PQF ---
CHARU FLYNN DAVID R MD [id number] [facility] [id number] CLINICAL DOCUMENTATION CLARIFICATION FORM: POST DISCHARGE Addendum to original discharge summary date: ____ Late entry note date: __ DATE:07/16/2019 ATTN:KERRY OLIVARES MD Please exercise your independent, professional judgment in responding to the clarification form. Clinical indicators are provided on the bottom of this form for your review Please check appropriate box(s): kindly clarify the diagnosis esophageal varices bleeding etiology; [ ] Esophageal varices bleeding due to alcoholic cirrhosis [ ] Esophageal varices bleeding due to portal hypertension [ ] Other diagnosis [ ] Unable to determine Defer to Gastroenterology For continuity of documentation, please document condition throughout progress notes and discharge summary. Thank You. CLINICAL INDICATORS - SIGNS / SYMPTOMS / LABS Chronic alcoholic cirrhosis with portal hypertension stable chronic-Documented in H&P on 07/11 by Simon Swan portal hypertensive gastropathy with no bleeding -Documented in OP note on by Milli Rolle MD Grad 3 esophageal varices with stigmata of recent bleeding with red jenise signs- Documented in OP note on 07/12 by Milli Rolle MD Cirrhosis of the liver due to alcohol abuse-Documented in PN on 07/14 by Stoney Camacho RISK FACTORS Chronic alcoholic cirrhosis with portal hypertension stable chronic-Documented in H&P on 07/11 by Simon Swan portal hypertensive gastropathy with no bleeding -Documented in OP note on by Milli Rolle MD TREATMENT: she is on octreotide drip, IV protonic and has received Rocephin -Documented in H&P on 07/11 by Simon Swan Band x5 placed on distal esophageal varices with good ablation-Documented in H& P on 07/11 by Simon Swan Recommendation:Antibiotics for infection prophylaxis and a cirrhotic with a GI bleed-Documented in H&P on 07/11 by Simon STEWART Meter Engineer [employer] (This form is maintained as a part of the permanent medical record) 2014 [employer]. All Rights Reserved [email or web address]
--- NOTE | 2019-07-16 13:06 | DIS ---
DATE OF ADMISSION: 07/11/2019 DATE OF DISCHARGE: 07/15/2019 DISCHARGE DIAGNOSES: 1. Gastrointestinal bleed secondary to esophageal varices. 2. Syncope. 3. Alcoholic cirrhosis. 4. Acute blood loss anemia. 5. Pancytopenia. 6. Hypertension. HISTORY OF PRESENT ILLNESS: This patient is a 69-year-old female with a history of cirrhosis secondary to history of alcohol abuse. The patient has chronic pancytopenia as well. The patient reported that she had a syncopal episode at home. Apparently, while she was unconscious, had hematemesis. She was brought to the emergency department where she was noted to be in tachycardia with a relative hypotension. Her labs revealed a hemoglobin of 4.6. She was subsequently transfused quickly with 3 units of packed red blood cells and had no further evidence of active bleeding at that time. She was discussed with the GI physician on-call and ER physician, subsequently started on octreotide drip and a Protonix drip along with Rocephin for SBP prophylaxis. HOSPITAL COURSE: The patient was admitted to the ICU and hemoglobin followed closely while remaining on the octreotide and Protonix drips and antibiotics. She initially underwent endoscopy, which revealed persistent blood that could not be fully cleared. Therefore, a repeat endoscopy the following day was performed, which revealed esophageal varices, felt to be the source of the bleeding. These were banded by Dr. Morley on 07/12/2019. Subsequently, the patient was placed back in the ICU, continued on her medications and wants her hemoglobin appear to be stable. She was back to eating a regular diet, ambulating, thus she was felt to be stable for discharge to home. PHYSICAL EXAMINATION: VITAL SIGNS: On the day of discharge temperature is 98.1, pulse 86, respirations 12, O2 saturation 97% on room air, BP 116/72. GENERAL: She was awake and alert, pleasant, cooperative. HEART: Regular rate and rhythm without murmurs, gallops, or rubs. LUNGS: Clear to auscultation bilaterally with good chest wall expansion and exchange. ABDOMEN: Soft, nontender, and nondistended. EXTREMITIES: Had no cyanosis, clubbing, or edema. DISPOSITION: The patient is discharged to home in stable condition. ACTIVITY: As tolerated. DIET: She has no dietary restrictions. DISCHARGE MEDICATIONS: 1. She will be on B12 1000 mcg daily. 2. Folic acid 1 mg daily. 3. Geritol 15 mg orally daily. 4. Lisinopril 10 mg p.o. daily. 5. Levaquin 500 mg daily. FOLLOWUP: 1. She will follow up with Dr. Lalito Morley and Dr. Humebrto Christianson. 2. She can return to the hospital at anytime should she have the need to do so. Job ID: [id number]
== END 2019-07-15 13:30 | disposition home or self-care (01) | DRG 369 ==
LOC: ERS 09:25 → CCU 18:09 → SURG A 07-13 22:54
PROVIDERS: ADMIT Internal Medicine; ATTEND Internal Medicine
PROC: 0DJ08ZZ Inspection of Upper Intestinal Tract, Via Natural or Artificial Opening Endoscopic (ICD-10-PCS; principal; 2019-07-11)
PROC: 30233N1 Transfusion of Nonautologous Red Blood Cells into Peripheral Vein, Percutaneous Approach (ICD-10-PCS; 2019-07-11)
PROC: 0W3P8ZZ Control Bleeding in Gastrointestinal Tract, Via Natural or Artificial Opening Endoscopic (ICD-10-PCS; 2019-07-12)
DX: I85.01 Esophageal varices with bleeding (principal); D62 Acute posthemorrhagic anemia; D61.818 Other pancytopenia; Z87.81 Personal history of (healed) traumatic fracture; Z98.890 Other specified postprocedural states; D64.9 Anemia, unspecified; I10 Essential (primary) hypertension; D50.8 Other iron deficiency anemias; Z91.02 Food additives allergy status; K21.9 Gastro-esophageal reflux disease without esophagitis; I86.4 Gastric varices; K70.30 Alcoholic cirrhosis of liver without ascites
CPT/HCPCS: 36415; 36430; 51701; 71045; 76705; 80053; 81003; 82274; 84484; 85025; 85610; 85730; 86850; 86900; 86901; 86922; 87081; 87430; 93005; 96361; 96365; 96366; 96374; 99292; A4353; C9113; J0696; J1100; J2001; J2354; J2405; J2704; J3490; J7050; P9016

== ENCOUNTER 2019-09-08 23:56 | Inpatient (IN) | payer BC, MEDICARE ==
[2019-09-09] MEDS ORDERED: Pantoprazole 40 MG VIAL ONE (00:11)
[2019-09-09] MEDS ORDERED: Ondansetron PF 4 MG/2 ML Vial ONE ×2 (00:11→00:12)
[2019-09-09 00:28] LABS: #Monocytes 0.3 thou/uL (0.11-0.59); #Neutrophils 1.6 thou/uL (1.40-6.50); %Eosinophils 1.4 % (0.0-10.0); %Lymphocytes 33.9 % (21.0-51.0); %Monocytes 11.2 % (0.0-10.0); %Neutrophils 52.5 % (42.0-75.0); Hemoglobin 7.5 g/dL (12.0-16.0); Mean Corpuscular HGB CONC 34.6 g/dL (32.0-36.0); Mean Corpuscular Hemoglobin 29.2 pg (27.0-31.0); Mean Corpuscular Volume 84.4 fL (78.0-98.0); Mean Platelet Volume 7.6 fL (7.4-10.4); Platelet Count 69 thou/uL (130-400); RBC Distribution Width 15.1 % (11.5-14.5); Red Blood Cell (RBC) Count 2.58 mill/uL (4.20-5.40); White Blood Cell (WBC) Count 3.1 thou/uL (4.8-10.8)
[2019-09-09 00:34] LABS: INR-International Normal Ratio 1.3; PTT 33.2 SEC (22.9-36.1); Prothrombin Time 15.9 SEC (12.0-14.7)
[2019-09-09 00:48] LABS: ALT (SGPT) 23 U/L (8-55); AST (SGOT) 24 U/L (5-34); Albumin 3.5 g/dL (3.4-4.8); Alkaline Phosphatase 75 U/L (40-110); Anion Gap 12 mmol/L (10-20); BUN (Urea Nitrogen) 55 mg/dL (9.8-20.1); Bilirubin, Total 0.7 mg/dL (0.2-1.2); Calc. Creatinine Clearance 0 mL/min (70-130); Calcium 9.2 mg/dL (7.8-10.44); Carbon Dioxide 24 mmol/L (23-31); Chloride 101 mmol/L (98-107); Estimated GFR-MDRD 68; Globulin 2.2 g/dL (2.4-3.5); Glucose 128 mg/dL (83-110); Potassium 3.8 mmol/L (3.5-5.1); Protein, Total 5.7 g/dL (6.0-8.3); Sodium 133 mmol/L (136-145)
[2019-09-09] MEDS ORDERED: Acetaminophen 325 MG TAB PO PRN (02:25)
[2019-09-09] MEDS: Sodium Chloride 0.9% 1,000 ML IV SCH ×3 (03:15→15:46)
[2019-09-09 03:38] VITALS: BMI 23.8
[2019-09-09 03:55] LABS: #Lymphocytes 0.7 thou/uL (1.20-3.40); #Monocytes 0.3 thou/uL (0.11-0.59); #Neutrophils 1.6 thou/uL (1.40-6.50); %Basophils 1.2 % (0.0-1.0); %Eosinophils 0.5 % (0.0-10.0); %Lymphocytes 26.9 % (21.0-51.0); %Monocytes 9.8 % (0.0-10.0); %Neutrophils 61.6 % (42.0-75.0); Hemoglobin 6.6 g/dL (12.0-16.0); Mean Corpuscular HGB CONC 34.5 g/dL (32.0-36.0); Mean Corpuscular Hemoglobin 29.4 pg (27.0-31.0); Mean Corpuscular Volume 85.3 fL (78.0-98.0); Mean Platelet Volume 7.7 fL (7.4-10.4); Platelet Count 57 thou/uL (130-400); RBC Distribution Width 15.2 % (11.5-14.5); Red Blood Cell (RBC) Count 2.25 mill/uL (4.20-5.40); White Blood Cell (WBC) Count 2.6 thou/uL (4.8-10.8)
[2019-09-09 04:16] LABS: Anion Gap 11 mmol/L (10-20); BUN (Urea Nitrogen) 49 mg/dL (9.8-20.1); Calc. Creatinine Clearance 71 mL/min (70-130); Calcium 8.8 mg/dL (7.8-10.44); Carbon Dioxide 21 mmol/L (23-31); Chloride 104 mmol/L (98-107); Estimated GFR-MDRD 77; Glucose 122 mg/dL (83-110); Potassium 4.4 mmol/L (3.5-5.1); Sodium 132 mmol/L (136-145)
[2019-09-09] MEDS ORDERED: Albumin 25% 25 GM/100 ML BOT IVPB SCH (05:11)
--- NOTE | 2019-09-09 06:07 | HP ---
CHIEF COMPLAINT: Hematemesis. HISTORY OF PRESENT ILLNESS: The patient is a 69-year-old female with a history of cirrhosis secondary to alcohol use. She also has a history of esophageal varices, who presents to the hospital with complaints of hematemesis x1 day. The patient states that for the past few days, she has been having low appetite; however, denies any abdominal pain, nausea, or vomiting. However, today she woke up to go to the bathroom tonight and had a near syncopal episode and had a dark hematemesis. She did not hit her head. At this time, her called 911 and she was brought into the hospital. PAST MEDICAL HISTORY: She has a history of chronic anemia, hypertension. She has had a history of cirrhosis secondary to alcohol abuse and also she has an esophageal varices. PAST SURGICAL HISTORY: She has had a left arm surgery. FAMILY HISTORY: Mother of cancer. Father of [place]. REVIEW OF SYSTEMS: All negative except for the ones mentioned above in the HPI. SOCIAL HISTORY: She quit drinking about a year ago. Denies any tobacco use. She is , lives with her . She is a full code. Denies any drug use. ALLERGIES: SHE IS ALLERGIC TO DAIRY. MEDICATIONS: 1. She is on lisinopril 10 mg daily. 2. She is on Tessalon Perles. 3. Pantoprazole. PHYSICAL EXAMINATION: VITAL SIGNS: Are as of the following; temperature of 98.8, heart rate of 96, blood pressure 86/52, respirations are 12, and 98% on room air. GENERAL: She is awake, alert, and oriented x3. Does not appear in distress. CV: S1, S2 present. No murmurs, rubs, or gallops. LUNGS: Clear to auscultation. No rhonchi or wheezes noted. ABDOMEN: Soft. Bowel sounds are present x2. No tenderness on palpation. EXTREMITIES: No edema. Pedal pulses are present x2. NEUROVASCULAR: There are no focal deficits noted. SKIN: No cuts, lesions, or bruises noted. LABORATORY RESULTS: Sodium of 132, potassium of 4.4, BUN of 49, creatinine of 0.74. Her hematology; WBCs of 3.1, hemoglobin of 7.5, hematocrit of 21.7, platelets of 69. ASSESSMENT AND PLAN: The patient is a 69-year-old female, who presents to the hospital with hematemesis. 1. Hematemesis, most likely secondary to her esophageal varices. The patient underwent an upper endoscopy on I believe was June, which did not indicate any active bleeding, however, had a stigmata of bleeding and she did undergo bands x5. We will put on octreotide drip and also put on a PPI. Due to her having multiple transfusions, she has several antibodies and in order for us to transfuse her, she will require some further screening according to the ER doctor. GI has been consulted. We will keep her n.p.o. We will put her on some IV hydration. 2. Pancytopenia, most likely secondary to underlying liver disease. We will continue to monitor. 3. Liver cirrhosis. We will continue to monitor. GI has been consulted. 4. Deep venous thrombosis prophylaxis. We will put the patient on some SCDs. Job ID: [id number]
[2019-09-09] MEDS: Pantoprazole 40 MG VIAL IVP SCH ×2 (08:42→20:35)
--- NOTE | 2019-09-09 09:21 | PDOC.HOSPP ---
- Subjective Encounter Date: 09/09/19 Encounter Time: 09:17 Subjective: Ms. Nieto was seen today in follow-up of GI bleed. She is laying flat in bed. She says she feels ok. She denies feeling dizzy or weak, and denies and lightheadedness. She also denies any further bleeding. - Objective Vital Signs & Weight: Vital Signs (12 hours) Temp Pulse Resp BP Pulse Ox 09/09/19 07:28 98.4 F 09/09/19 03:35 100 09/09/19 03:15 98.4 F 100 20 99/61 100 Weight Weight 143 lb 1.6 oz Most Recent Monitor Data Heart Rate from ECG 95 NIBP 95/54 NIBP BP-Mean 67 Respiration from ECG 16 SpO2 97 Result Diagrams: 09/09/19 03:32 09/09/19 03:32 Hospitalist ROS - Medication Medications: Active Medications Generic Name Dose Route Start Last Admin Trade Name Freq PRN Reason Stop Dose Admin Sodium Chloride 1,000 mls @ 70 mls/hr 09/09/19 02:45 09/09/19 03:15 Normal Saline 0.9% IV Not Given .[id number] IAVNA Pantoprazole Sodium 40 mg 09/09/19 09:00 09/09/19 08:42 Protonix IVP 40 mg Q12HR IVANA Administration - Exam Eye: PERRL Heart: RRR, no murmur, no gallops, no rubs, normal peripheral pulses Respiratory: CTAB Gastrointestinal: soft, non-tender, non-distended, normal bowel sounds, no palpable masses, no hepatomegaly Extremities: no cyanosis Hosp A/P (1) Esophageal varices Code(s): I85.00 - ESOPHAGEAL VARICES WITHOUT BLEEDING Status: Acute (2) UGIB (upper gastrointestinal bleed) Code(s): K92.2 - GASTROINTESTINAL HEMORRHAGE, UNSPECIFIED Status: Acute (3) Alcoholic cirrhosis Code(s): K70.30 - ALCOHOLIC CIRRHOSIS OF LIVER WITHOUT ASCITES Status: Chronic - Plan * Upper GI bleed- possible due to esophageal varices, due to her history, although other causes are possible * Will continue the Octreotide drip * Continue IV Protonix * GI has been consulted * Acute on chronic anemia- She has a large amount of antibodies, and her blood will take longer to cross match- awaiting this now, and will transfuse a unit once it is available * Continue to monitor H&H
[2019-09-09 11:07] LABS: Hemoglobin 5.8 g/dL (12.0-16.0)
[2019-09-09] MEDS ORDERED: Sodium Chloride 0.9% 500 ML IVPB SCH (11:15)
[2019-09-09] MEDS: cefTRIAXone\\ROCEPHIN 1 GM in Sodium Chloride 0.9% 100 ML IVPB SCH (14:04)
--- NOTE | 2019-09-09 14:20 | CON ---
DATE OF CONSULTATION: 09/09/2019 CHIEF COMPLAINT: Vomited blood. HISTORY OF PRESENT ILLNESS: Ms. Nieto is a 69-year-old woman with cirrhosis and varices, who underwent banding of esophageal varices last week with one band placed in the distal esophagus over a large varix. She did well initially after that; however, about midnight last night, she woke up and started to walk to the bathroom, but then passed out, vomited red blood. She only had one episode of vomiting blood. She has had no abdominal pain. No further vomiting since then. She has been constipated for several days and has been taking MiraLAX once daily for that, and finally she had 3 to 4 bowel movements yesterday, but these were nonbloody. She has had no other acute complaints currently. She is lying in bed and does not feel dizzy at rest. PAST MEDICAL HISTORY: 1. Alcoholic cirrhosis of the liver. Her last drink of alcohol was October 2018. Hypertension. History of bleeding esophageal varices, first underwent banding of the esophageal varices in June of 2019. Five bands were placed at that time by Dr. Morley on 07/12/2019. Endoscopy on 08/31/2018, showed 3 columns of grade 2 varices with one column that was larger, and single band was placed over this column due to the recent GI bleed to try to further eradicate these varices. 2. Anemia. She has had cautery of AVMs in the right colon by colonoscopy in October of 2018. She has had portal hypertensive gastropathy. She has had bleeding esophageal varices previously. She had erosive esophagitis with grade C erosive esophagitis by EGD in October of 2018. 3. History of colon polyps. PAST SURGICAL HISTORY: EGD and colonoscopy. FAMILY HISTORY: Colon cancer in her maternal uncle and maternal grandfather. SOCIAL HISTORY: No tobacco or drugs. Last alcohol use was October 2018. OUTPATIENT MEDICATIONS: 1. Furosemide 40 mg daily. 2. Lisinopril 20 mg daily. 3. Nadolol 20 mg daily. 4. Pantoprazole 40 mg daily. 5. Spironolactone 100 mg daily. 6. She has been on vitamin B12 and vitamin D and folic acid. CURRENT INPATIENT MEDICATIONS: Pantoprazole IV and octreotide drip and normal saline. REVIEW OF SYSTEMS: Negative x10 systems reviewed except as stated in history of present illness. PHYSICAL EXAMINATION: VITAL SIGNS: Temperature 98.2, blood pressure 92/52, pulse 94. GENERAL: She is in pale, in no acute distress. She is alert and oriented x3. HEENT: Her eyes have no scleral icterus. Oropharynx is clear without lesions. No cervical or supraclavicular lymphadenopathy. LUNGS: Clear to auscultation bilaterally. HEART: Regular rate and rhythm without murmur. ABDOMEN: Soft, nontender, and nondistended. Bowel sounds are present. EXTREMITIES: No lower extremity edema. LABORATORY DATA: Her baseline hemoglobin in the office on July 23, 2019, was 8.6. When she came to the emergency room last night, initial hemoglobin was 7.5; this morning, she dropped down to 6.6 and then 5.8. She has blood ordered, but has antibodies and the blood is delayed, but coming from [place] and reportedly on its way. White blood cell count 2.6, platelets 57. INR 1.3, creatinine 0.74, bilirubin 0.7, AST 24, ALT 23, alkaline phosphatase 75, albumin 3.5. IMPRESSION: 1. Gastrointestinal bleed secondary to esophageal varices. She most likely is bleeding from the recent site of banding of the varix, which likely has sloughed off recently the post-banding ulcer. The varices were eradicated, scarred down, and deflated with the banding. This area unlikely would hold another band at this point. She had one episode of vomiting last night and does have black stool on rectal exam now. She has had no bowel movements; however, since the vomiting started and the bleeding might currently be stopped with the octreotide. Her hemoglobin did trend down since midnight with fluids. She will need transfusion, and we will continue to follow trend of her hemoglobin. 2. Anemia of acute blood loss on top of chronic anemia. 3. Cirrhosis of the liver secondary to alcohol. Last alcohol use was October 2018. RECOMMENDATIONS: 1. Octreotide drip. 2. Transfusion. We should have the blood available shortly now. 3. Antibiotics for SBP prophylaxis. 4. If she develops further overt bleeding or ongoing drop in her hemoglobin or failure to response transfusion, then therapeutic endoscopy would be indicated. Again, I doubt the post-banding ulcer is in an area that would hold another band, likely injection of ethanolamine would be necessary. We will try to avoid this if we can keep her controlled with the octreotide. Charli ID: [id number]
[2019-09-09 16:02] LABS: Hemoglobin 6.5 g/dL (12.0-16.0); Platelet Count 50 thou/uL (130-400)
[2019-09-09 21:18] LABS: Hemoglobin 8.7 g/dL (12.0-16.0); Platelet Count 52 thou/uL (130-400)
--- NOTE | 2019-09-09 21:33 | PQF ---
DATE: 09-09-19 ATTN: DR. MONTSERRAT HARDING Please exercise your independent, professional judgment in responding to the clarification form. Clinical indicators are provided on the bottom of this form for your review Please check appropriate box(s): [ ] Hyponatremia please specify etiology, if known [ X ] Insignificant Lab Values [ ] Other diagnosis [ ] Unable to determine In addition, please specify: Present on Admission (POA): [X ] Yes [ ] No [ ] Unable to determine CLINICAL INDICATORS - SIGNS / SYMPTOMS / LABS / RESULTS AND LOCATION IN EMR: SODIUM: 09-09-19: 133 132 RISK FACTORS / RESULTS AND LOCATION IN EMR: H&P: 09-08-19: HX CIRRHOSIS SECONDARY TO ALCOHOL ABUSE, HEMATEMESIS, HAVING LOW APPETITE TREATMENTS / RESULTS AND LOCATION IN EMR: MAR: 09-09-19: NS IVF, ROCEPHIN IV (This form is maintained as a part of the permanent medical record) 2014 [employer]. All Rights Reserved SHEREEN [email or web address]
[2019-09-10] MEDS: Octreotide Acetate 1,250 MCG in Sodium Chloride 0.9% 250 ML 250 ML IVPB SCH (03:03)
[2019-09-10] MEDS: Sodium Chloride 0.9% 1,000 ML IV SCH ×3 (03:04→22:42)
[2019-09-10 03:56] LABS: #Lymphocytes 0.5 thou/uL (1.20-3.40); #Monocytes 0.4 thou/uL (0.11-0.59); #Neutrophils 2.5 thou/uL (1.40-6.50); %Basophils 0.7 % (0.0-1.0); %Eosinophils 1.3 % (0.0-10.0); %Lymphocytes 14.6 % (21.0-51.0); %Monocytes 10.4 % (0.0-10.0); Hemoglobin 7.4 g/dL (12.0-16.0); Mean Corpuscular Hemoglobin 29.8 pg (27.0-31.0); Mean Platelet Volume 7.2 fL (7.4-10.4); Platelet Count 55 thou/uL (130-400); Red Blood Cell (RBC) Count 2.49 mill/uL (4.20-5.40); White Blood Cell (WBC) Count 3.5 thou/uL (4.8-10.8)
[2019-09-10] MEDS: Pantoprazole 40 MG VIAL IVP SCH ×2 (08:34→21:33)
[2019-09-10 10:11] LABS: Hemoglobin 7.6 g/dL (12.0-16.0)
[2019-09-10] MEDS: cefTRIAXone\\ROCEPHIN 1 GM in Sodium Chloride 0.9% 100 ML IVPB SCH (11:28)
--- NOTE | 2019-09-10 12:14 | PDOC.HOSPP ---
- Subjective Encounter Date: 09/10/19 Encounter Time: 12:12 Subjective: Ms. Nieto was seen today in follow-up of hematemsis. She has not had any further epsodes of bleeding. She denies abdominal pain. She is looking forward to getting up and out of bed. - Objective Vital Signs & Weight: Vital Signs (12 hours) Temp Pulse Ox 09/10/19 11:20 99.1 F 09/10/19 08:00 96 09/10/19 07:50 98.7 F 09/10/19 03:26 98.3 F Weight Weight 143 lb 1.6 oz Most Recent Monitor Data Heart Rate from ECG 95 NIBP 107/62 NIBP BP-Mean 77 Respiration from ECG 16 SpO2 97 I&O: 09/09/19 09/10/19 09/11/19 06:59 06:59 06:59 Intake Total 3414 Output Total 1950 Balance 1464 Result Diagrams: 09/10/19 09:56 09/09/19 03:32 Hospitalist ROS - Medication Medications: Active Medications Generic Name Dose Route Start Last Admin Trade Name Nicole PRN Reason Stop Dose Admin Octreotide Acetate 1,250 mcg/ 251.25 mls @ 10.05 mls/hr 09/09/19 01:30 03:03 Sodium Chloride IVPB 251.25 mls INF IVANA Administration 50 MCG/HR Ceftriaxone Sodium 1 gm/ 100 mls @ 200 mls/hr 09/09/19 12:45 09/10/19 11:28 Sodium Chloride IVPB 09/13/19 13:14 100 mls Q24HR IVANA Administration Sodium Chloride 1,000 mls @ 100 mls/hr 09/09/19 14:45 09/10/19 11:28 Normal Saline 0.9% IV 1,000 mls .Q10H IVANA Administration Pantoprazole Sodium 40 mg 09/09/19 09:00 09/10/19 08:34 Protonix IVP 40 mg Q12HR IVANA Administration - Exam Eye: PERRL Heart: RRR, no murmur, no gallops, no rubs, normal peripheral pulses Respiratory: CTAB, no wheezes, no rales, no ronchi, normal chest expansion, no tachypnea Gastrointestinal: soft, non-tender, non-distended, normal bowel sounds, no palpable masses Extremities: no cyanosis, no clubbing, no edema Hosp A/P (1) Esophageal varices Code(s): I85.00 - ESOPHAGEAL VARICES WITHOUT BLEEDING Status: Acute (2) UGIB (upper gastrointestinal bleed) Code(s): K92.2 - GASTROINTESTINAL HEMORRHAGE, UNSPECIFIED Status: Acute (3) Alcoholic cirrhosis Code(s): K70.30 - ALCOHOLIC CIRRHOSIS OF LIVER WITHOUT ASCITES Status: Chronic - Plan * Upper GI bleed- in patient with esophageal varices, post banding- GI evaluation noted * Will continue the Octreotide drip * Continue IV Protonix * Continue to monitor her H&H for stability * Re-start her home medications
--- NOTE | 2019-09-10 12:16 | PRG ---
DATE OF SERVICE: 09/10/2019 SUBJECTIVE: Ms. Nieto has had no bowel movement since admission. She has no abdominal pain. No further vomiting. PHYSICAL EXAMINATION: VITAL SIGNS: Temperature 99.1, blood pressure 107/62, pulse 95. GENERAL: She is in no acute distress. Alert and oriented x3. HEENT: Her eyes have no scleral icterus. Oropharynx is clear without lesions. No cervical or supraclavicular lymphadenopathy. LUNGS: Clear to auscultation bilaterally. HEART: Regular rate and rhythm without murmur. ABDOMEN: Soft, nontender, and nondistended. Bowel sounds are present. EXTREMITIES: No lower extremity edema. NEUROLOGICAL: No asterixis. LABORATORY DATA: White blood cell count 3.5, hemoglobin 7.6, platelets 55. Creatinine 0.74. IMPRESSION: 1. Acute gastrointestinal bleed from esophageal varices, status post banded varix last week. 2. Anemia of acute blood loss. Her hemoglobin has responded appropriately to transfusion. She has no further overt bleeding at this point. 3. History of alcohol-induced cirrhosis. Her last drink was in October 2018. RECOMMENDATIONS: 1. Start full liquid diet today. 2. Continue octreotide. 3. Tomorrow, I would anticipate changing to a low fiber diet and then the day after tomorrow, if she has no further overt bleeding, she can likely be discharged home. She will need to continue octreotide drip throughout that time. 4. Continue antibiotics for SBP prophylaxis. Job ID: [id number]
[2019-09-11] MEDS: Octreotide Acetate 1,250 MCG in Sodium Chloride 0.9% 250 ML 250 ML IVPB SCH (04:07)
[2019-09-11] MEDS: Folic Acid 1 MG TAB PO SCH (07:39)
[2019-09-11] MEDS: Sodium Chloride 0.9% 1,000 ML IV SCH ×2 (07:40→16:57)
[2019-09-11] MEDS: Lisinopril 10 MG TAB PO SCH (07:40)
[2019-09-11] MEDS: Pantoprazole 40 MG VIAL IVP SCH (07:40)
[2019-09-11] MEDS: Cyanocobalamin (Vitamin B-12) 1,000 MCG TAB PO SCH (07:40)
--- NOTE | 2019-09-11 11:42 | PDOC.HOSPP ---
- Subjective Encounter Date: 09/11/19 Encounter Time: 11:00 Subjective: no further bleeding no abd pain or nausea feels better, is tolerating liq diet - Objective Vital Signs & Weight: Vital Signs (12 hours) Temp Pulse Resp BP Pulse Ox 09/11/19 11:15 98 09/11/19 10:48 97.3 F L 88 20 114/73 98 09/11/19 08:00 100 09/11/19 07:16 97.0 F L 09/11/19 03:22 98.1 F Weight Weight 143 lb 1.6 oz Most Recent Monitor Data Heart Rate from ECG 90 NIBP 111/67 NIBP BP-Mean 81 Respiration from ECG 15 SpO2 96 I&O: 09/10/19 09/11/19 09/12/19 06:59 06:59 06:59 Intake Total 3414 Output Total 1950 Balance 1464 Result Diagrams: 09/10/19 09:56 09/09/19 03:32 Hospitalist ROS - Medication Medications: Active Medications Generic Name Dose Route Start Last Admin Trade Name Nicole PRN Reason Stop Dose Admin Cyanocobalamin 1,000 mcg 09/11/19 09:00 09/11/19 07:40 Vitamin B-12 PO 1,000 mcg DAILY IVANA Administration Folic Acid 1 mg 09/11/19 09:00 09/11/19 07:39 Folvite PO 1 mg DAILY IVANA Administration Octreotide Acetate 1,250 mcg/ 251.25 mls @ 10.05 mls/hr 09/09/19 01:30 04:07 Sodium Chloride IVPB 251.25 mls INF IVANA Administration 50 MCG/HR Ceftriaxone Sodium 1 gm/ 100 mls @ 200 mls/hr 09/09/19 12:45 09/10/19 11:28 Sodium Chloride IVPB 09/13/19 13:14 100 mls Q24HR IVANA Administration Sodium Chloride 1,000 mls @ 100 mls/hr 09/09/19 14:45 09/11/19 07:40 Normal Saline 0.9% IV 1,000 mls .Q10H IVANA Administration Lisinopril 10 mg 09/11/19 09:00 09/11/19 07:40 Zestril PO Not Given DAILY IVANA Pantoprazole Sodium 40 mg 09/09/19 09:00 09/11/19 07:40 Protonix IVP 40 mg Q12HR IVANA Administration Sodium Chloride 10 ml 09/10/19 21:00 09/11/19 07:40 Flush - Normal Saline IVF 10 ml Q12HR IVANA Administration - Exam General Appearance: awake alert Eye: PERRL, anicteric sclera ENT: no oropharyngeal lesions, moist mucosa Neck: supple, no JVD Heart: RRR, no murmur Respiratory: no wheezes, no rales Gastrointestinal: soft, non-tender, non-distended, normal bowel sounds Extremities: no cyanosis, no edema Neurological: cranial nerve grossly intact, no focal deficits Psychiatric: normal affect, A&O x 3 Hosp A/P (1) UGIB (upper gastrointestinal bleed) Code(s): K92.2 - GASTROINTESTINAL HEMORRHAGE, UNSPECIFIED Status: Acute (2) Acute blood loss anemia Code(s): D62 - ACUTE POSTHEMORRHAGIC ANEMIA Status: Acute (3) Thrombocytopenia Code(s): D69.6 - THROMBOCYTOPENIA, UNSPECIFIED Status: Chronic (4) Alcoholic cirrhosis Code(s): K70.30 - ALCOHOLIC CIRRHOSIS OF LIVER WITHOUT ASCITES Status: Chronic Qualifiers: Ascites presence: without ascites Qualified Code(s): K70.30 - Alcoholic cirrhosis of liver without ascites (5) Hypertension Code(s): I10 - ESSENTIAL (PRIMARY) HYPERTENSION Status: Chronic Qualifiers: Hypertension type: essential hypertension Qualified Code(s): I10 - Essential (primary) hypertension - Plan GI bleed sec to varices, s/p banding is on octreotide drip and protonix may advance diet per GI advice H/H is stable am labs transfer pt to medical floor is on ceftriaxone, lisinopril. May dc iv fluids if tolerating sufficient oral diet/liquids.
[2019-09-11] MEDS: cefTRIAXone\\ROCEPHIN 1 GM in Sodium Chloride 0.9% 100 ML IVPB SCH (12:06)
--- NOTE | 2019-09-11 12:54 | PRG ---
DATE OF SERVICE: 09/11/2019 SUBJECTIVE: Ms. Nieto is tolerating a liquid diet well. She has no abdominal pain. She did have a dark bowel movement this morning after lactulose yesterday. This one was formed. She had a little bit looser but browner bowel movement yesterday. She has had no dizziness or lightheadedness with walking back and forth to the bathroom. OBJECTIVE: VITAL SIGNS: Temperature is 97.3, pulse 88, blood pressure 114/73. GENERAL: She is in no acute distress. Alert and oriented x3. LUNGS: Clear to auscultation bilaterally. HEART: Regular rate and rhythm without murmur. ABDOMEN: Soft, nontender, and nondistended. Bowel sounds are present. EXTREMITIES: No lower extremity edema. LABORATORY DATA: Hemoglobin is stable at 7.6. IMPRESSION: 1. GI bleed secondary to esophageal varices. She likely had a slough with ulceration underneath the banding site. The bleeding appears to have stopped. 2. Anemia secondary to acute blood loss. 3. Cirrhosis of the liver secondary to past alcohol. RECOMMENDATIONS: 1. Continue octreotide through tomorrow morning. It can be discontinued tomorrow morning. 2. Pantoprazole can be changed to oral dosing. 3. Continue ceftriaxone. 4. Advance to solid diet. 5. Anticipate discharge home tomorrow morning. Job ID: [id number]
[2019-09-12] MEDS: Sodium Chloride 0.9% 1,000 ML IV SCH ×3 (04:16→20:32)
[2019-09-12 05:48] LABS: Hemoglobin 6.6 g/dL (12.0-16.0); Mean Corpuscular HGB CONC 35.2 g/dL (32.0-36.0); Mean Corpuscular Hemoglobin 30.5 pg (27.0-31.0); Mean Corpuscular Volume 86.5 fL (78.0-98.0); Mean Platelet Volume 6.8 fL (7.4-10.4); Platelet Count 54 thou/uL (130-400); RBC Distribution Width 16.2 % (11.5-14.5); Red Blood Cell (RBC) Count 2.17 mill/uL (4.20-5.40); White Blood Cell (WBC) Count 1.6 thou/uL (4.8-10.8)
[2019-09-12 06:00] LABS: Anion Gap 9 mmol/L (10-20); BUN (Urea Nitrogen) 11 mg/dL (9.8-20.1); Calc. Creatinine Clearance 76 mL/min (70-130); Calcium 8.4 mg/dL (7.8-10.44); Carbon Dioxide 23 mmol/L (23-31); Chloride 109 mmol/L (98-107); Estimated GFR-MDRD 82; Glucose 111 mg/dL (83-110); Potassium 3.9 mmol/L (3.5-5.1); Sodium 137 mmol/L (136-145)
[2019-09-12 06:17] LABS: Band 3 % (5-11); Eosinophils 2 % (0-10); Lymphocytes 27 % (21-51); MDiff Complete? YES; Monocytes 15 % (0-10); Neutrophil 53 % (42-75); Platelet Morphology Comment Appears Decreased
[2019-09-12] MEDS: Lisinopril 10 MG TAB PO SCH (08:56)
[2019-09-12] MEDS: Folic Acid 1 MG TAB PO SCH (08:56)
[2019-09-12] MEDS: Cyanocobalamin (Vitamin B-12) 1,000 MCG TAB PO SCH (08:56)
--- NOTE | 2019-09-12 10:42 | PDOC.HOSPP ---
- Subjective Encounter Date: 09/12/19 Encounter Time: 09:15 Subjective: no abd pain or nausea no leslie blood in stool is tolerating liq diet and amb in room - Objective Vital Signs & Weight: Vital Signs (12 hours) Temp Pulse Resp BP BP Pulse Ox 09/12/19 09:16 97.5 F L 95 16 125/77 98 09/12/19 08:01 97.8 F 96 16 106/66 100 09/12/19 03:00 90 18 95 09/12/19 02:35 98.3 F 111 H 18 99/54 L 95 Weight Weight 143 lb 1.6 oz Most Recent Monitor Data Heart Rate from ECG 90 NIBP 111/67 NIBP BP-Mean 81 Respiration from ECG 15 SpO2 96 I&O: 09/11/19 09/12/19 09/13/19 06:59 06:59 06:59 Intake Total 3070 0 Balance 3070 0 Result Diagrams: 09/12/19 04:59 09/12/19 04:59 Hospitalist ROS - Medication Medications: Active Medications Generic Name Dose Route Start Last Admin Trade Name Nicole PRN Reason Stop Dose Admin Cyanocobalamin 1,000 mcg 09/11/19 09:00 09/12/19 08:56 Vitamin B-12 PO 1,000 mcg DAILY IVANA Administration Folic Acid 1 mg 09/11/19 09:00 09/12/19 08:56 Folvite PO 1 mg DAILY IVANA Administration Octreotide Acetate 1,250 mcg/ 251.25 mls @ 10.05 mls/hr 09/09/19 01:30 04:07 Sodium Chloride IVPB 251.25 mls INF IVANA Administration 50 MCG/HR Ceftriaxone Sodium 1 gm/ 100 mls @ 200 mls/hr 09/09/19 12:45 09/11/19 12:06 Sodium Chloride IVPB 09/13/19 13:14 100 mls Q24HR IVANA Administration Sodium Chloride 1,000 mls @ 100 mls/hr 09/09/19 14:45 09/12/19 04:16 Normal Saline 0.9% IV 1,000 mls .Q10H IVANA Administration Lactulose 10 gm 09/12/19 09:00 09/12/19 08:55 Lactulose PO 10 gm DAILY IVANA Administration Lisinopril 10 mg 09/11/19 09:00 09/12/19 08:56 Zestril PO 10 mg DAILY IVANA Administration Pantoprazole Sodium 40 mg 09/11/19 21:00 09/12/19 08:56 Protonix PO 40 mg BID IVANA Administration Sodium Chloride 10 ml 09/10/19 21:00 09/12/19 08:56 Flush - Normal Saline IVF 10 ml Q12HR IVANA Administration - Exam General Appearance: awake alert Eye: PERRL, anicteric sclera ENT: no oropharyngeal lesions, moist mucosa Neck: supple, no JVD Heart: RRR, no murmur Respiratory: no wheezes, no rales Gastrointestinal: soft, non-tender, non-distended, normal bowel sounds Extremities: no cyanosis, no edema Neurological: cranial nerve grossly intact, no focal deficits Psychiatric: normal affect, A&O x 3 Hosp A/P (1) UGIB (upper gastrointestinal bleed) Code(s): K92.2 - GASTROINTESTINAL HEMORRHAGE, UNSPECIFIED Status: Acute (2) Acute blood loss anemia Code(s): D62 - ACUTE POSTHEMORRHAGIC ANEMIA Status: Acute (3) Thrombocytopenia Code(s): D69.6 - THROMBOCYTOPENIA, UNSPECIFIED Status: Chronic (4) Alcoholic cirrhosis Code(s): K70.30 - ALCOHOLIC CIRRHOSIS OF LIVER WITHOUT ASCITES Status: Chronic Qualifiers: Ascites presence: without ascites Qualified Code(s): K70.30 - Alcoholic cirrhosis of liver without ascites (5) Hypertension Code(s): I10 - ESSENTIAL (PRIMARY) HYPERTENSION Status: Chronic Qualifiers: Hypertension type: essential hypertension Qualified Code(s): I10 - Essential (primary) hypertension - Plan GI bleed sec to varices, s/p banding is on octreotide drip and protonix to get a unit of prbc today, will check cbc in am, bun/cr ratio is normal unlikely to be actively bleeding now. is on liq diet am labs is on ceftriaxone, lisinopril. iv fluids.
[2019-09-12] MEDS: cefTRIAXone\\ROCEPHIN 1 GM in Sodium Chloride 0.9% 100 ML IVPB SCH (12:44)
[2019-09-12] MEDS: Octreotide Acetate 1,250 MCG in Sodium Chloride 0.9% 250 ML 250 ML IVPB SCH (12:49)
--- NOTE | 2019-09-12 14:33 | PRG ---
DATE OF SERVICE: 09/12/2019 SUBJECTIVE: Ms. Nieto had a couple of soft-formed dark stools last night and this morning. She is started lactulose low-dose once daily for mild constipation and is responding well to that. She has no abdominal pain. She has had no nausea or vomiting. She is getting up and walking to the bathroom and back without any dizziness or lightheadedness. OBJECTIVE: VITAL SIGNS: Temperature is 97.8, blood pressure is 112/73, and pulse is 91. GENERAL: She is in no acute distress. Alert and oriented x3. LUNGS: Clear to auscultation bilaterally. HEART: Regular rate and rhythm without murmur. ABDOMEN: Soft, nontender, and nondistended. Bowel sounds are present. EXTREMITIES: No lower extremity edema. LABORATORY DATA: White blood cell count 1.6, hemoglobin 6.6, and platelets 54,000. Creatinine 0.7. IMPRESSION: 1. Gastrointestinal bleed secondary to esophageal varices. She has not had significant overt bleeding since the hematemesis when she came in. Her stools are dark, but they are formed now. I do not think she has ongoing bleeding at this time, however, blood count was a little lower this morning, so we will keep the octreotide on today and anticipate discharge home tomorrow if her blood count is stable. 2. Anemia of acute blood loss. Her hemoglobin is lower today. Her white blood cell count is also significantly lower. This could be dilutional. She received 1 unit of transfusion today and we will see how her blood count responds to the transfusion. 3. Cirrhosis secondary to past alcohol. Her alpha fetoprotein was normal at 2.0. RECOMMENDATIONS: 1. Continue octreotide until tomorrow morning. 2. Restart a solid diet. 3. She had 1 unit of transfusion today and we will check a posttransfusion CBC now and in the morning. 4. If her hemoglobin is stable and she does not have significant overt bleeding, then I would anticipate discharge home tomorrow morning. Job ID: [id number]
[2019-09-12 15:02] LABS: Hemoglobin 7.7 g/dL (12.0-16.0)
[2019-09-13] MEDS: Cyanocobalamin (Vitamin B-12) 1,000 MCG TAB PO SCH (09:50)
[2019-09-13] MEDS: Lisinopril 10 MG TAB PO SCH (09:50)
[2019-09-13] MEDS: Folic Acid 1 MG TAB PO SCH (09:50)
--- NOTE | 2019-09-13 11:10 | PDOC.HOSPP ---
- Subjective Encounter Date: 09/13/19 Encounter Time: 09:00 Subjective: no nausea or abd pain no leslie bleeding per rectum or hematemesis is amb in room - Objective Vital Signs & Weight: Vital Signs (12 hours) Temp Pulse Resp BP BP Pulse Ox 09/13/19 09:50 115/75 09/13/19 08:00 100 09/13/19 07:32 97.6 F 92 16 103/62 100 Weight Weight 143 lb 1.6 oz Most Recent Monitor Data Heart Rate from ECG 90 NIBP 111/67 NIBP BP-Mean 81 Respiration from ECG 15 SpO2 96 I&O: 09/12/19 09/13/19 09/14/19 06:59 06:59 06:59 Intake Total 3070 2150 Balance 3070 2150 Result Diagrams: 09/12/19 14:44 09/12/19 04:59 Hospitalist ROS - Medication Medications: Active Medications Generic Name Dose Route Start Last Admin Trade Name Freq PRN Reason Stop Dose Admin Cyanocobalamin 1,000 mcg 09/11/19 09:00 09/13/19 09:50 Vitamin B-12 PO 1,000 mcg DAILY IVANA Administration Folic Acid 1 mg 09/11/19 09:00 09/13/19 09:50 Folvite PO 1 mg DAILY IVANA Administration Octreotide Acetate 1,250 mcg/ 251.25 mls @ 10.05 mls/hr 09/09/19 01:30 12:49 Sodium Chloride IVPB 251.25 mls INF IVANA Administration 50 MCG/HR Ceftriaxone Sodium 1 gm/ 100 mls @ 200 mls/hr 09/09/19 12:45 09/12/19 12:44 Sodium Chloride IVPB 09/13/19 13:14 100 mls Q24HR IVANA Administration Lactulose 10 gm 09/12/19 09:00 09/13/19 09:51 Lactulose PO 10 gm DAILY IVANA Administration Lisinopril 10 mg 09/11/19 09:00 09/13/19 09:50 Zestril PO 10 mg DAILY IVANA Administration Pantoprazole Sodium 40 mg 09/11/19 21:00 09/13/19 09:48 Protonix PO 40 mg BID IVANA Administration Sodium Chloride 10 ml 09/10/19 21:00 09/13/19 09:52 Flush - Normal Saline IVF 10 ml Q12HR IVANA Administration - Exam General Appearance: awake alert Eye: PERRL, anicteric sclera ENT: no oropharyngeal lesions, moist mucosa Neck: supple, no JVD Heart: RRR, no murmur Respiratory: no wheezes, no rales Gastrointestinal: soft, non-tender, non-distended, normal bowel sounds Extremities: no cyanosis, no edema Neurological: cranial nerve grossly intact, no focal deficits Psychiatric: normal affect, A&O x 3 Hosp A/P (1) UGIB (upper gastrointestinal bleed) Code(s): K92.2 - GASTROINTESTINAL HEMORRHAGE, UNSPECIFIED Status: Acute (2) Acute blood loss anemia Code(s): D62 - ACUTE POSTHEMORRHAGIC ANEMIA Status: Acute (3) Thrombocytopenia Code(s): D69.6 - THROMBOCYTOPENIA, UNSPECIFIED Status: Chronic (4) Alcoholic cirrhosis Code(s): K70.30 - ALCOHOLIC CIRRHOSIS OF LIVER WITHOUT ASCITES Status: Chronic Qualifiers: Ascites presence: without ascites Qualified Code(s): K70.30 - Alcoholic cirrhosis of liver without ascites (5) Hypertension Code(s): I10 - ESSENTIAL (PRIMARY) HYPERTENSION Status: Chronic Qualifiers: Hypertension type: essential hypertension Qualified Code(s): I10 - Essential (primary) hypertension - Plan GI bleed sec to varices, s/p banding is on octreotide drip and oral protonix got total of 3 u prbc this admission, no active bleeding now. is on fiber restricted diet hemostable is on ceftriaxone, lisinopril. dc plan either this evening or in am once she is off octreotide drip.
[2019-09-13 12:13] VITALS: BP 108/68; TEMP 98.6
[2019-09-13] MEDS: cefTRIAXone\\ROCEPHIN 1 GM in Sodium Chloride 0.9% 100 ML IVPB SCH (12:58)
--- NOTE | 2019-09-13 13:07 | PRG ---
DATE OF SERVICE: 09/13/2019 SUBJECTIVE: Ms. Nieto is doing well. She had a bowel movement this morning, which was still dark, but cellophane bath mixer than it was yesterday. She has had no abdominal pain. OBJECTIVE: VITAL SIGNS: Temperature 98.6, pulse 88, blood pressure 108/68. GENERAL: She is in no acute distress. Alert and oriented x3. LUNGS: Clear to auscultation bilaterally. HEART: Regular rate and rhythm without murmur. ABDOMEN: Soft, nontender, and nondistended. Bowel sounds are present. EXTREMITIES: No lower extremity edema. LABORATORY DATA: Her hemoglobin yesterday after transfusion was 7.7. IMPRESSION: 1. Esophageal varices with hemorrhage. Her hemoglobin responded appropriately to two transfusion without evidence of significant overt bleeding. 2. Cirrhosis. RECOMMENDATIONS: 1. Check a CBC this morning. If her hemoglobin and white blood cell count are stable, then she should discharge home today. 2. Discontinue octreotide. 3. Discontinue ceftriaxone. 4. Low-dose lactulose 15 mL daily. 5. Follow up in GI clinic in a month. Job ID: [id number]
[2019-09-13 14:05] LABS: Band 1 % (5-11); Elliptocytes SLIGHT = 2-5 cells (100X) (0-1/hpf); Eosinophils 4 % (0-10); Hemoglobin 7.8 g/dL (12.0-16.0); Hypochromia SLIGHT = 6-15 cells (100X) (0-5/hpf); Lymphocytes 27 % (21-51); MDiff Complete? YES; Mean Corpuscular HGB CONC 34.4 g/dL (32.0-36.0); Mean Corpuscular Hemoglobin 30.3 pg (27.0-31.0); Mean Corpuscular Volume 87.9 fL (78.0-98.0); Mean Platelet Volume 6.7 fL (7.4-10.4); Metamyelocyte 1 % (0-0); Monocytes 13 % (0-10); Myelocyte 1 % (0-0); Neutrophil 52 % (42-75); Platelet Count 53 thou/uL (130-400); Platelet Morphology Comment Appears Decreased; Polychromasia SLIGHT = 2-3 cells (100X) (0-2/hpf); RBC Distribution Width 16.9 % (11.5-14.5); Red Blood Cell (RBC) Count 2.56 mill/uL (4.20-5.40); White Blood Cell (WBC) Count 1.4 thou/uL (4.8-10.8)
--- NOTE | 2019-09-13 15:32 | DIS ---
DATE OF ADMISSION: 09/09/2019 DATE OF DISCHARGE: 09/13/2019 DISCHARGE DISPOSITION: Home. PRIMARY DISCHARGE DIAGNOSES: 1. Acute blood loss anemia, likely secondary to recent banding of esophageal varices with bleed. 2. Hematemesis, resolved. 3. History of alcoholic cirrhosis with last drink of alcohol in October of 2018. 4. Acute blood loss anemia due to gastrointestinal bleed. 5. Thrombocytopenia, leukopenia, likely due to cirrhosis. 6. Hypertension. PROCEDURES DONE DURING HOSPITALIZATION: The patient received 3 units of packed cell transfusion during her stay here. H and H on the day of discharge are 7.8 and 22, MCV is 87, white count of 1.4 on the day of discharge with platelet count of 53. PT and INR are 15.9 and 1.3, PTT 33. Initial BUN and creatinine were 55 and 0.8, discharge BUN and creatinine of 11 and 0.7. AFP was less than 2.0. Albumin 3.5. DISCHARGE MEDICATIONS: 1. Ferrous sulfate 325 mg twice daily. 2. Folic acid 1 mg daily. 3. Lactulose 10 g p.o. daily. 4. Protonix 40 mg twice daily. 5. Vitamin B12 of 1000 mcg p.o. daily. 6. Lisinopril 10 mg p.o. daily. 7. Lasix 20 mg p.o. daily. ALLERGIES: TO DAIRY PRODUCTS. INPATIENT CONSULT: Dr. Cal Lua for Gastroenterology. DISCHARGE PLAN: The patient to follow up with Dr. Humberto Christianson, her primary care physician, in 1 week; Dr. Morley in 2 to 3 weeks. BRIEF COURSE DURING HOSPITALIZATION: The patient initially came to ER with complaints of hematemesis. She has had banding done of her esophageal varices the week prior to hospitalization. She has known history of alcoholic cirrhosis with prior varices as well. She had acute blood loss anemia and was transfused 3 units of packed cell during her stay here. The patient was also on octreotide drip. Her acute blood loss anemia is stable with discharge H and H of 7.8 and 22. The patient has a low white count of 1.4 and platelet count of 53 at the time of discharge. She is hemodynamically stable, tolerating solid food prior to discharge. She is cleared for discharge by Dr. Cal Lua. The patient needs to follow up with Dr. Humberto Christianson, her primary care physician and have a repeat CBC in a week to see if her leukopenia has resolved. She has known history of chronic thrombocytopenia due to cirrhosis. Please note, I have seen and examined the patient on the day of discharge. Job ID: [id number]
== END 2019-09-13 16:01 | disposition home or self-care (01) | DRG 432 ==
LOC: ERS 23:56 → IMCU/EMU 09-09 02:39 → T4-A 09-11 10:20
PROVIDERS: ADMIT Internal Medicine; ATTEND Internal Medicine
PROC: 30233N1 Transfusion of Nonautologous Red Blood Cells into Peripheral Vein, Percutaneous Approach (ICD-10-PCS; principal; 2019-09-09)
DX: K70.30 Alcoholic cirrhosis of liver without ascites (principal); I85.11 Secondary esophageal varices with bleeding; D62 Acute posthemorrhagic anemia; D61.818 Other pancytopenia; I10 Essential (primary) hypertension; F10.21 Alcohol dependence, in remission; Z91.011 Allergy to milk products; Z79.899 Other long term (current) drug therapy; Z86.010 Personal history of colon polyps
CPT/HCPCS: 36415; 36430; 80048; 80053; 82105; 85025; 85610; 85730; 86850; 86870; 86880; 86900; 86901; 86905; 86922; 96361; 96365; 96375; C9113; J0696; J2354; J2405; J3490; J7050; P9016; P9047

== ENCOUNTER 2019-12-30 07:58 | Outpatient (CLI) | payer BC ==
--- NOTE | 2019-12-30 08:33 | ULT ---
US Hepatic Doppler History: Cirrhosis Comparison: Hepatic Doppler June 2019 Findings: Real-time grayscale, color and spectral analysis of the liver was performed. Hepatic contour is nodular. No hepatic mass is appreciated. Visualized portion of the aorta and IVC are unremarkable. The portal veins are patent with antegrade flow. Hepatic veins are patent with antegrade flow. The ma in portal vein is dilated to 1.8 cm. There is gallbladder sludge. Gallbladder wall thickness is normal. Spleen is enlarged measuring 18 cm in length. The splenic artery and vein are patent. Impression: 1. Hepatic cirrhosis without discernible mass. 2. Mobile gallbladder sludge. 3. Splenomegaly and sequelae of portal hypertension.
== END 2019-12-30 07:59 | disposition home or self-care (01) ==
LOC: BICULT 07:58
PROVIDERS: ATTEND Internal Medicine Gastroenterology
DX: I85.00 Esophageal varices without bleeding (principal); K70.31 Alcoholic cirrhosis of liver with ascites; D50.0 Iron deficiency anemia secondary to blood loss (chronic); R16.1 Splenomegaly, not elsewhere classified; K82.8 Other specified diseases of gallbladder
CPT/HCPCS: 76705

== ENCOUNTER 2020-01-05 07:12 | Inpatient (IN) | payer BC, MEDICARE, OTHER ==
[2020-01-05 07:52] LABS: #Lymphocytes 1.3 thou/uL (1.20-3.40); #Monocytes 0.6 thou/uL (0.11-0.59); #Neutrophils 4.5 thou/uL (1.40-6.50); %Basophils 0.4 % (0.0-1.0); %Eosinophils 0.6 % (0.0-10.0); %Lymphocytes 20.6 % (21.0-51.0); %Neutrophils 69.5 % (42.0-75.0); Hemoglobin 6.8 g/dL (12.0-16.0); Mean Corpuscular Hemoglobin 26.2 pg (27.0-31.0); Mean Corpuscular Volume 79.4 fL (78.0-98.0); Mean Platelet Volume 8.4 fL (7.4-10.4); Platelet Count 90 thou/uL (130-400); RBC Distribution Width 18.9 % (11.5-14.5); Red Blood Cell (RBC) Count 2.59 mill/uL (4.20-5.40); White Blood Cell (WBC) Count 6.4 thou/uL (4.8-10.8)
[2020-01-05 07:56] LABS: INR-International Normal Ratio 1.3; Prothrombin Time 16.3 sec (12.0-14.7)
[2020-01-05 07:57] LABS: PTT 31.5 sec (22.9-36.1)
[2020-01-05 08:10] LABS: Acetaminophen Less than 6.0 mcg/mL (10.0-30.0); Alcohol Less than 10 mg/dL (Less than 10); Salicylate Less than 8.0 mg/dL (15.0-30.0)
[2020-01-05 08:11] LABS: ALT (SGPT) 49 U/L (8-55); AST (SGOT) 39 U/L (5-34); Albumin 3.2 g/dL (3.4-4.8); Alkaline Phosphatase 72 U/L (40-110); Anion Gap 11 mmol/L (10-20); BUN (Urea Nitrogen) 86 mg/dL (9.8-20.1); Bilirubin, Total 0.5 mg/dL (0.2-1.2); Calc. Creatinine Clearance 0 mL/min (70-130); Calcium 8.4 mg/dL (7.8-10.44); Carbon Dioxide 22 mmol/L (23-31); Chloride 105 mmol/L (98-107); Estimated GFR-MDRD 57; Globulin 1.8 g/dL (2.4-3.5); Glucose 132 mg/dL (83-110); Sodium 134 mmol/L (136-145)
--- NOTE | 2020-01-05 08:15 | CT ---
CT BRAIN WITHOUT CONTRAST: HISTORY: Fall, headache FINDINGS: No evidence of acute infarct, hemorrhage, midline shift or abnormal extra-axial fluid collections is seen. The ventricular size is appropriate and the basilar cisterns are patent. The bony calvarium is intact. The visualized paranasal sinuses and mastoid air cells are well aerated. IMPRESSION: No CT evidence of acute intracranial process.
--- NOTE | 2020-01-05 08:18 | CT ---
CT CERVICAL SPINE WITH CORONAL AND SAGITTAL REFORMATIONS AND NO IV CONTRAST: HISTORY: Fall, neck pain FINDINGS: Multilevel degenerative changes are present. There is loss of cervical lordosis with straightening of the cervical spine. No fracture, subluxation or facet malalignment is identified. No prevertebral soft tissue swelling is apparent. The visualized lung apices are unremarkable. IMPRESSION: No CT evidence for fracture or traumatic subluxation.
--- NOTE | 2020-01-05 08:23 | CT ---
Exam: Lumbar spine CT without contrast HISTORY: Fall. Pain. FINDINGS: Atherosclerosis of a nonaneurysmal aorta. There are scattered nonspecific mesenteric lymph nodes, inc ompletely evaluated. Visualized solid organs are grossly unremarkable. No definite evidence of obstructive uropathy. Visualized presacral fat is preserved. Multilevel degenerative change throughout the lumbar spine. There is loss of disc space height, endpl ate sclerosis and osteophyte formation. L1-L2 vacuum disc phenomenon. Minimal vacuum disc phenomenon at L3-L4. Near complete fusion of the L4-L5 space. Hypertrophic changes involving the facets at L4-L5 and L5-S1. Spondylolisthesis: 2.4 mm of retrolisthesis of L1 upon L2. 5.1 mm of anterolisthesis of L5 upon S1. T12 vertebral body fracture with mild loss of disc space height. Fracture extends through the anterio r middle and posterior aspect of the vertebral body. No additional fractures. Limited evaluation the contents of the central spinal canal and neural foramina due to technique T11-T12 and T12-L1: No evidence of high-grade central canal stenosis or high-grade neural foraminal n arrowing L1-L2: Vacuum disc phenomenon. Severe loss of disc space height. Broad-based disc bulge. Mild central canal stenosis. Moderate right and mild left neural foraminal narrowing L2-L3: Broad-based disc bulge, ligament flavum thickening and facet hypertrophy result in mild to mod erate central canal stenosis. Mild to moderate bilateral neural foraminal narrowing. L3-L4: Broad-based disc bulge, ligament flavum thickening and facet hypertrophy result in moderate ce ntral canal stenosis. Moderate bilateral foraminal narrowing L4-L5: Severe loss of disc space height. Broad-based disc bulge with a right subarticular herniation. Ligament flavum thickening and facet hypertrophy. Moderate central canal stenosis. Near complete obscuration the traversing right L5 nerve root. Moderate right and moderate to severe left foraminal narrowing. L5-S1: Broad-based disc bulge abuts the thecal sac. There is at least mild central canal stenosis. Mo derate bilateral foraminal narrowing. IMPRESSION: 1. T12 vertebral body fracture involving the entire aspect of the vertebral body. 2. Multilevel degenerative changes of the lumbar spine as described above.
[2020-01-05] MEDS ORDERED: Pantoprazole 40 MG VIAL ONE (10:47)
[2020-01-05] MEDS ORDERED: Pantoprazole 80 MG, Admixture Fee 1 EACH in Sodium Chloride 0.9% 100 ML IVPB SCH (11:15)
[2020-01-05] MEDS ORDERED: Morphine 4 MG/ML VIAL ONE (11:24)
[2020-01-05] MEDS ORDERED: Acetaminophen 650 MG Suppository PR PRN (14:11)
[2020-01-05] MEDS ORDERED: Ondansetron PF 4 MG/2 ML Vial IVP PRN (14:11)
[2020-01-05] MEDS ORDERED: Senokot S 8.6-50 MG TAB PO PRN (14:11)
[2020-01-05] MEDS ORDERED: Ondansetron ODT 4 MG TAB PO PRN (14:11)
[2020-01-05] MEDS ORDERED: Guaifenesin DM 100-10/5 ML UDCUP PO PRN (14:11)
[2020-01-05] MEDS ORDERED: Octreotide Acetate 500 MCG/ML VIAL SLOW IVP SCH (14:30)
[2020-01-05] MEDS ORDERED: Octreotide Acetate 50 MCG/ML AMP SLOW IVP SCH ×2 (14:30→18:15)
--- NOTE | 2020-01-05 15:40 | HP ---
PRIMARY CARE PHYSICIAN: Dr. Humberto Christianson PRIMARY MEDICAL LAB DIRECTOR: Dr. Lua. CHIEF COMPLAINT: Fall with head and back pain and melena. HISTORY OF PRESENT ILLNESS: This is a 69-year-old white female with a known history of alcoholic cirrhosis with previous varicocele bleed off alcohol since 2014. She reports that she was feeling weak for the last few days. She did have some nausea and vomiting. No blood or coffee-grounds emesis. She had about 2-3 episodes a few days ago, then today while patient was getting up to go to the bathroom, she fell. She did hit her head. She went to the bathroom, then came back. On the way back she fell again. Since the fall the patient has had some head pain, had a laceration to her scalp and she also has had some low back pain. She presented to the emergency room. In the ER, the patient had CT scan of the head and neck and lumbar spine. She was diagnosed with a T12 fracture and put in a clamshell brace. She also had her head laceration sutured up. The patient was noted to have borderline blood pressures and was given some IV fluids. She had lab done, which showed a hemoglobin of 6.8, and so she is being transfused blood right now. She did have a rectal exam done by the emergency room physician, which was positive for melenic stool. With fluids and the transfusion, the patient's vital signs have been stable and she is currently being admitted to the [facility] on a Protonix drip. REVIEW OF SYSTEMS: CONSTITUTIONAL: No fevers, no chills. EYES: No double vision or blurred vision. ENT: No congestion, drainage or sore throat. CARDIOVASCULAR: No chest pain. No palpitations or racing heart. PULMONARY: No coughing, wheezing or shortness of breath. GASTROINTESTINAL: See HPI. She has some mild lower abdominal pain on an off. GENITOURINARY: No dysuria or hematuria. MUSCULOSKELETAL: See HPI. No other muscle aches or joint pains. SKIN: See HPI. No other rashes or lesions. NEUROLOGIC: No numbness, tingling or focal weakness. PAST MEDICAL HISTORY: 1. Alcoholic cirrhosis with portal hypertension and portal hypertensive gastropathy with ulcerative esophagitis. 2. Esophageal varices. 3. History of colonic AVMs. 4. Hypertension. 5. History of staphylococcal, paraspinal and lumbar epidural abscesses years ago. PAST SURGICAL HISTORY: 1. ORIF of the left humerus. 2. Esophageal variceal banding. SOCIAL HISTORY: The patient previously was a heavy drinker. No alcohol since 2004 when her liver diagnosis was made. No tobacco or illicit drug use. She lives at home with her who would be her medical decision maker. His name is Leonard Nieto. She states she was not certain about her code status. When I asked her about it she was leaning toward not wanting to be resuscitated. She has always been full code before. I will consult palliative Care to have further discussions with her about it. FAMILY HISTORY: Mother of cancer and father of a myocardial infarction. ALLERGIES: DAIRY. CURRENT MEDICATIONS: 1. Lisinopril 10 mg daily. 2. Geritol as needed. 3. Protonix 40 mg daily. PHYSICAL EXAMINATION: VITAL SIGNS: Blood pressure 111/75, pulse 109, respirations 16, temperature 98.8, O2 saturation 100% on room air. GENERAL: This is a well-developed, well-nourished white female, in no acute distress. HEENT: Pupils equal, round, and reactive to light. Oropharynx clear without lesions, erythema, or exudate. NECK: Supple. No lymphadenopathy. No thyroid nodules or enlargement. No JVD. HEART: Mildly tachycardic. Regular rhythm. No murmurs, rubs, or gallops. LUNGS: Clear to auscultation bilaterally. No wheezes, crackles, or rhonchi. ABDOMEN: Soft. Mild discomfort to palpation in the lower abdomen, but no guarding or rebound tenderness. No masses. No hepatosplenomegaly. Normoactive bowel sounds. EXTREMITIES: No clubbing, cyanosis, or edema. She does have her clamshell brace in place. SKIN: The patient has a to the scalp. Otherwise no other skin lesions. NEUROLOGIC: The patient moves all extremities with 5/5 strength. Deep tendon reflexes 2+ in all extremities. No facial droop. PSYCHIATRIC: Alert orient x3. Normal mood and affect. LABORATORY DATA: CBC with a white blood cell count of 6.4, hemoglobin 6.8, hematocrit 28.6, platelet count 90. Coagulation profile with an INR of 1.3. Complete metabolic panel is notable for sodium of 134, carbon dioxide of 22, BUN of 86, glucose of 132, AST 39, albumin 3.2. The rest was normal. Troponin was negative x1. Serum tox screen was negative. CT of the brain and cervical spine showing no evidence for acute intracranial abnormality or cervical spine fracture. Lumbar spine CT does show a fracture of the of T12 with mild loss of disk space height, fracture extending to the anterior middle and posterior aspect of the vertebral body. ASSESSMENT: 1. Acute upper gastrointestinal bleed possibly variceal. The patient's vital signs are stable at this time. She is getting her blood transfusion. We will need to check serial hemoglobin and hematocrit and transfuse as needed. She is already on a Protonix drip. I will add octreotide due to her history of varicocele bleeding and we will give a dose of Rocephin. I have contacted gastroenterology, Dr. Castro, who is on-call for Dr. Lua and will see the patient. The patient will be watched closely in the intermediate care unit. N.p.o. for now. 2. Acute T12 spinal fracture without significant displacement. Neurosurgery has been consulted by the emergency room and the patient is put in a clamshell brace. We will have Physical Therapy and Occupational Therapy work with the patient in the hospital. 3. Hypertension. We will hold the patient's blood pressure medicine for now given her lowish blood pressures. 4. Alcoholic cirrhosis. 5. Thrombocytopenia actually not bad for her. We will monitor. 6. Acute blood loss anemia. Transfusing. 7. Deep venous thrombosis prophylaxis. The patient on sequential compression devices while in bed. 8. Code status. The patient is considering making herself a do not attempt resuscitation. We will have Palliative Care discuss this with her further. Her medical decision maker should she be incapacitated would be her , Leonard Nieto. Job ID: [id number]
[2020-01-05] MEDS ORDERED: cefTRIAXone\\ROCEPHIN 1 GM VIAL ONE (17:28)
[2020-01-05] MEDS: cefTRIAXone\\ROCEPHIN 1 GM in Sodium Chloride 0.9% 100 ML IVPB SCH (17:30)
[2020-01-05] MEDS ORDERED: Octreotide Acetate 50 MCG/ML AMP ONE (17:53)
[2020-01-05] MEDS ORDERED: Acetaminophen 325 MG TAB ONE (18:00)
[2020-01-05] MEDS: Acetaminophen 325 MG TAB PO PRN (18:02)
[2020-01-05 18:53] VITALS: BMI 25.0
[2020-01-05] MEDS ORDERED: Morphine 2 MG/ML VIAL SLOW IVP PRN (18:58)
[2020-01-05] MEDS: Pantoprazole 80 MG in Sodium Chloride 0.9% 100 ML IVP SCH (21:15)
[2020-01-05] MEDS: Octreotide Acetate 1,250 MCG in Sodium Chloride 0.9% 250 ML 250 ML IVPB SCH (21:35)
[2020-01-05 22:00] LABS: Hemoglobin 7.7 g/dL (12.0-16.0)
--- NOTE | 2020-01-05 22:13 | CON ---
DATE OF CONSULTATION: 01/05/2020 REASON FOR CONSULTATION: Black stool and symptomatic anemia. HISTORY OF PRESENT ILLNESS: Ms. Nieto is a 69-year-old female with known cirrhosis from previous alcohol consumption, complicated with previous esophageal variceal bleeding. Last admitted four months ago. She had a bleeding episode earlier this year in June with banding ligation of her varices. She subsequently underwent further banding ligation with subsequent rebleed after her banding in August requiring readmission. She had been evaluated at the [facility], but was seen to still have a low MELD score. However, TIPS procedure was recommended should she having recurrent bleeding again. The patient was in her usual state of health until this morning when she got up and fell in the bathroom. After getting up and attempt to get back to bed, she reportedly passed out with questionable loss of consciousness, but fell and hit her head sustaining a laceration. The patient presented to the emergency room and underwent head CT that did not show any acute findings. However, her spine CT did show a T12 fracture and is currently wearing a brace. The scalp laceration had been sutured. On further questioning, the patient reports having dark almost black stool this morning. She denies any nausea or vomiting. There is no coffee ground emesis or hematemesis. She denies having any abdominal pain. On admission, she was noted to have a hemoglobin of 6.8. Currently, she is hemodynamically stable and is waiting for bed in the [facility]. PAST MEDICAL HISTORY: 1. Cirrhosis from alcohol with evidence of portal hypertension and esophageal varices, status post previous banding ligation. 2. History of iron deficiency anemia with panendoscopy performed last year demonstrated a right colon AVMs that were ablated. 3. Hypertension. 4. History of epidural abscess. 5. Status post left hip ORIF. ALLERGIES: NO KNOWN DRUG ALLERGY. MEDICATIONS: At home include; 1. Protonix. 2. Lisinopril. 3. Periodic Geritol liquid. SOCIAL HISTORY: The patient is . She has no active alcohol or tobacco usage. FAMILY HISTORY: Negative for any known GI problem, liver disease, or GI malignancy. REVIEW OF SYSTEMS: Ten-point review of systems did not show any other reported symptoms other than the aforementioned. PHYSICAL EXAMINATION: VITAL SIGNS: Temperature is 98, blood pressure 108/70, and pulse of 100. GENERAL: She is alert, conversant. Fully oriented. HEAD AND NECK: Shows anicteric sclerae. Oropharynx is clear. CV: Shows normal S1 and S2. Regular rate and rhythm. CHEST: Shows a breath sound. ABDOMEN: Soft. No palpable mass or organomegaly. She has active bowel sounds. No tenderness elicited. EXTREMITIES: Shows no edema. LABORATORY DATA: WBC is 6.4, hemoglobin 6.8, and platelet count of 90. INR of 1.3. Electrolytes within normal range. Creatinine is 0.96, BUN of 86, bilirubin is 0.5, AST of 39, ALT of 49, and alkaline phosphatase of 72. Cervical and brain CT are normal. Lumbar spine CT showed a T12 vertebral body fracture. Stool occult blood was positive. ASSESSMENT: 1. Symptomatic anemia with fall and possible syncopal episode at home. The patient has a hemoglobin of 6.8, which is lower from her baseline. Her "dark almost black" stool from earlier today could represent gastrointestinal bleeding. Given her history of variceal bleeding, this is to be suspected. 2. Status post fall with scalp laceration and T12 vertebral fracture. 3. Cirrhosis with evidence of portal hypertension and hypersplenism with pancytopenia. 4. Acute on chronic anemia, likely from blood loss. RECOMMENDATION: 1. Agree with octreotide infusion as ordered. 2. Continue to monitor blood count and trend her H and H. Currently, she is receiving 1 unit of RBC transfusion for hemoglobin of 6.8. 3. We will schedule the upper endoscopy in a.m. to elucidate source of bleeding to control if necessary. 4. We will follow closely. Job ID: [id number]
--- NOTE | 2020-01-06 01:00 | CON ---
DATE OF CONSULTATION: 01/05/2020 Neurosurgery was consulted by the emergency department regarding this 69-year-old female, who presented with scalp laceration, headache, and low back pain status post two recent falls. CTs of the brain and cervical spine were negative for acute abnormalities. CT of the lumbar spine demonstrates a T12 anterior and middle column fracture. Recommended TLSO clamshell brace when out of bed. Our team will arrange for repeat upright x-rays and outpatient followup in 2 weeks for reevaluation. Please call Neurosurgery for any questions or concerns. Job ID: [id number] MTDD
[2020-01-06 03:53] LABS: Anion Gap 13 mmol/L (10-20); BUN (Urea Nitrogen) 56 mg/dL (9.8-20.1); Calc. Creatinine Clearance 63 mL/min (70-130); Carbon Dioxide 17 mmol/L (23-31); Chloride 112 mmol/L (98-107); Estimated GFR-MDRD 63; Potassium 4.5 mmol/L (3.5-5.1); Sodium 137 mmol/L (136-145)
[2020-01-06 03:54] LABS: Glucose 142 mg/dL (83-110)
[2020-01-06 04:28] LABS: Hemoglobin 7.8 g/dL (12.0-16.0); Hypochromia SLIGHT = 6-15 cells (100X) (0-5/hpf); Lymphocytes 4 % (21-51); MDiff Complete? YES; Mean Corpuscular Hemoglobin 27.5 pg (27.0-31.0); Mean Corpuscular Volume 85.9 fL (78.0-98.0); Mean Platelet Volume 9.5 fL (7.4-10.4); Monocytes 6 % (0-10); Neutrophil 90 % (42-75); Platelet Count 58 thou/uL (130-400); Platelet Morphology Comment Appears Decreased; RBC Distribution Width 19.2 % (11.5-14.5); Red Blood Cell (RBC) Count 2.84 mill/uL (4.20-5.40); White Blood Cell (WBC) Count 4.2 thou/uL (4.8-10.8)
[2020-01-06 06:02] LABS: Hemoglobin 7.4 g/dL (12.0-16.0)
[2020-01-06] MEDS: Pantoprazole 80 MG in Sodium Chloride 0.9% 100 ML IVP SCH ×2 (07:02→16:51)
[2020-01-06] MEDS: Acetaminophen 325 MG TAB PO PRN ×3 (07:20→21:57)
--- NOTE | 2020-01-06 08:38 | PDOC.HOSPP ---
- Subjective Encounter Date: 01/06/20 Encounter Time: 13:00 Subjective: Patient had EGD this AM with banding of a bleeding varice as well as banding of some non-bleeding ones. H/H stable this AM. Recheck tomorrow. - Objective Vital Signs & Weight: Vital Signs (12 hours) Temp Pulse Ox 01/06/20 08:00 97 01/06/20 07:18 97.6 F 01/06/20 04:09 98.1 F 01/05/20 23:18 98.8 F Weight Weight 150 lb 5.684 oz Most Recent Monitor Data Heart Rate from ECG 95 NIBP 113/60 NIBP BP-Mean 77 Respiration from ECG 15 SpO2 99 I&O: 01/05/20 01/06/20 01/07/20 06:59 06:59 06:59 Output Total 300 Balance -300 Result Diagrams: 01/06/20 05:43 01/06/20 03:00 Hospitalist ROS - Review of Systems Constitutional: denies: fever, chills Respiratory: reports: cough. denies: shortness of breath Cardiovascular: denies: chest pain, palpitations Gastrointestinal: denies: nausea, vomiting, abdominal pain - Medication Medications: Active Medications Generic Name Dose Route Start Last Admin Trade Name Freq PRN Reason Stop Dose Admin Acetaminophen 650 mg 01/05/20 14:11 01/06/20 07:20 Tylenol PO 650 mg Q4H PRN Administration Headache/Fever/Mild Pain (1-3) Ceftriaxone Sodium 1 gm/ 100 mls @ 200 mls/hr 01/05/20 15:00 01/05/20 17:30 Sodium Chloride IVPB 100 mls Q24HR IVANA Administration Pantoprazole Sodium 80 mg/ 100 mls @ 10 mls/hr 01/05/20 14:11 01/06/20 07:02 Sodium Chloride IVP 100 mls INF IVANA Administration Octreotide Acetate 1,250 mcg/ 251.25 mls @ 5.02 mls/hr 01/05/20 18:15 21:35 Sodium Chloride IVPB 251.25 mls INF IVANA Administration 25 MCG/HR Morphine Sulfate 2 mg 01/05/20 18:58 01/05/20 19:53 Morphine SLOW IVP 2 mg Q3H PRN Administration Pain Sodium Chloride 10 ml 01/05/20 21:00 01/06/20 08:10 Flush - Normal Saline IVF 10 ml Q12HR IVANA Administration - Exam General Appearance: NAD, awake alert ENT: moist mucosa Heart: RRR, no murmur, no gallops, no rubs Respiratory: CTAB, no wheezes, no rales, no ronchi Gastrointestinal: soft, normal bowel sounds Psychiatric: normal affect, normal behavior, A&O x 3 Hosp A/P (1) UGIB (upper gastrointestinal bleed) Code(s): K92.2 - GASTROINTESTINAL HEMORRHAGE, UNSPECIFIED Status: Acute (2) Acute blood loss anemia Code(s): D62 - ACUTE POSTHEMORRHAGIC ANEMIA Status: Acute (3) Esophageal varices Code(s): I85.00 - ESOPHAGEAL VARICES WITHOUT BLEEDING Status: Acute (4) T12 vertebral fracture Code(s): S22.089A - UNSP FRACTURE OF T11-T12 VERTEBRA, INIT FOR CLOS FX Status : Acute (5) Alcoholic cirrhosis Code(s): K70.30 - ALCOHOLIC CIRRHOSIS OF LIVER WITHOUT ASCITES Status: Chronic Qualifiers: (6) Pancytopenia Code(s): D61.818 - OTHER PANCYTOPENIA Status: Chronic (7) Thrombocytopenia Code(s): D69.6 - THROMBOCYTOPENIA, UNSPECIFIED Status: Chronic (8) Hypertension Code(s): I10 - ESSENTIAL (PRIMARY) HYPERTENSION Status: Chronic Qualifiers: Hypertension type: essential hypertension Qualified Code(s): I10 - Essential (primary) hypertension - Plan H/H stable after transfusion 1 unit PRBC in the ER. Upper endoscopy this AM. Protonix and Octreotide drips Dr. Mcneill did EGD with banding of varices on 01/06/2020 PT/OT, clamshell brace for spinal fracture
[2020-01-06] MEDS ORDERED: Dexamethasone 20 MG/5 ML VIAL ONE (11:18)
[2020-01-06] MEDS ORDERED: Ondansetron PF 4 MG/2 ML Vial ONE (11:18)
[2020-01-06] MEDS ORDERED: Rocuronium Bromide 10 MG/ML (10ML VIAL) ONE (11:18)
[2020-01-06] MEDS ORDERED: Succinylcholine Chloride 20 MG/ML 10 ml SYRINGE FS ONE (11:18)
[2020-01-06] MEDS ORDERED: PROPOFOL 200 MG/20 ML VIAL ONE (11:18)
[2020-01-06] MEDS ORDERED: Lidocaine 1% PF 5 ML VIAL ONE (11:18)
[2020-01-06] MEDS: Sodium Chloride 0.9% 1,000 ML IV SCH (11:42)
--- NOTE | 2020-01-06 12:56 | OP ---
DATE OF PROCEDURE: 01/06/2020 PREPROCEDURE DIAGNOSES: 1. Cirrhosis. 2. History of recurrent bleeding from portal hypertensive varices. 3. Admission with melena and drop in hemoglobin and syncopal episode. Most recent endoscopies for GI bleeding here were in June with followup endoscopy with ablation of remaining varices in August. POSTPROCEDURE DIAGNOSES: 1. Varices in the distal esophagus with stigmata of recent bleeding on a varix that extends just below the Z-line onto the proximal varix on the proximal gastric fold. This actually began to bleed acutely during the endoscopy and was banded with resolution of bleeding. 2. Three of the varices in the distal esophagus were banded with jenise signs, but no active bleeding. 3. Portal hypertensive gastropathy. RECOMMENDATIONS: 1. Continue octreotide. 2. Continue antibiotics. 3. Advance liquid diet today. Advance diet as tolerated. 4. Treat for hepatic encephalopathy. ANESTHESIA: General endotracheal anesthesia. PROCEDURE IN DETAIL: After the patient was informed of the risks, benefits, and possible complications of endoscopy including perforation, reaction to medication, and aspiration, informed consent was obtained. The need for urgent endoscopy and intubation was explained to the patient. She agreed. Once the airway was secured, the video endoscope was advanced into the esophagus, stomach, and second and third portions of the duodenum. There was some old heme staining in the stomach. There was portal hypertensive gastropathy with no signs of overt bleeding. There was normal duodenum to the third portion. No evidence of varices or active bleeding or bleeding sites. Retroflexed views revealed a varix extending from the esophagus in the proximal gastric folds just a couple of centimeters below the Z-line into this small hiatal hernia that is present. This had a thrombin clot and actually red clot there and was likely the bleeding source. There were several other varices just above the Z-line and this area with red jenise signs, but no thrombin clot or active bleeding. The stomach was desufflated and the scope was removed. The band ligator kit was applied and introduced that back in the esophagus when we went back down to the stomach, immediately the before-mentioned varix with stigmata of high risk for bleeding was noted to be hemorrhaging acutely. This was banded and the bleeding stopped, 3 other bands were applied to varices with red jenise signs in the lower esophagus within 3 cm of the GE junction. All varices seemed to be ablated. There was no bleeding. The scope was removed. The patient tolerated the procedure well. There were no complications. Job ID: [id number]
[2020-01-06 14:15] LABS: Hemoglobin 7.5 g/dL (12.0-16.0)
[2020-01-06 14:59] LABS: SARS-CoV-2 MS2 Positive; SARS-CoV-2 N Gene Negative; SARS-CoV-2 S Gene Negative; SARS-CoV-2 by NAA Not Detected (NotDetected); SARS-CoV-2 orf1ab Negative
--- NOTE | 2020-01-06 16:21 | PDOC.FMACP ---
Advance Care Planning - Problem (1) Palliative care encounter Status: Acute Code(s): Z51.5 - ENCOUNTER FOR PALLIATIVE CARE (2) T12 vertebral fracture Status: Acute Code(s): S22.089A - UNSP FRACTURE OF T11-T12 VERTEBRA, INIT FOR CLOS FX (3) Acute blood loss anemia Status: Acute Code(s): D62 - ACUTE POSTHEMORRHAGIC ANEMIA (4) Esophageal varices Status: Acute Code(s): I85.00 - ESOPHAGEAL VARICES WITHOUT BLEEDING (5) Alcoholic cirrhosis Status: Chronic Code(s): K70.30 - ALCOHOLIC CIRRHOSIS OF LIVER WITHOUT ASCITES Qualifiers: - Note Participants: patient, palliative care Summary: Palliative Care introduced Advanced Care Planning, allowed opportunity to decline. The diagnosis, prognosis and goals of care were discussed. Appropriate forms and documentation to accomplish the goals of care were discussed. All questions were answered. Ms Nieto elected to transition to DNAR as well as complete OOHDNAR. MPOA completed and copy placed on chart, original given to patient. Also completed Directive to Physician, patient given copy as well as placed on chart. Please refer to palliative care notes in note section. Time Spent (mins): 30
[2020-01-06] MEDS: cefTRIAXone\\ROCEPHIN 1 GM in Sodium Chloride 0.9% 100 ML IVPB SCH (16:51)
[2020-01-07 03:18] LABS: #Lymphocytes 0.6 thou/uL (1.20-3.40); #Monocytes 0.2 thou/uL (0.11-0.59); #Neutrophils 1.7 thou/uL (1.40-6.50); %Eosinophils 0.7 % (0.0-10.0); %Lymphocytes 23.1 % (21.0-51.0); %Monocytes 9.7 % (0.0-10.0); %Neutrophils 66.5 % (42.0-75.0); Hemoglobin 6.2 g/dL (12.0-16.0); Mean Corpuscular HGB CONC 33.9 g/dL (32.0-36.0); Mean Corpuscular Hemoglobin 28.2 pg (27.0-31.0); Mean Corpuscular Volume 83.3 fL (78.0-98.0); Mean Platelet Volume 8.2 fL (7.4-10.4); Platelet Count 40 thou/uL (130-400); RBC Distribution Width 19.5 % (11.5-14.5); White Blood Cell (WBC) Count 2.5 thou/uL (4.8-10.8)
[2020-01-07 03:36] LABS: ALT (SGPT) 35 U/L (8-55); AST (SGOT) 22 U/L (5-34); Albumin 3.2 g/dL (3.4-4.8); Alkaline Phosphatase 61 U/L (40-110); Anion Gap 10 mmol/L (10-20); BUN (Urea Nitrogen) 26 mg/dL (9.8-20.1); Bilirubin, Total 0.5 mg/dL (0.2-1.2); Calc. Creatinine Clearance 76 mL/min (70-130); Calcium 8.6 mg/dL (7.8-10.44); Carbon Dioxide 20 mmol/L (23-31); Chloride 108 mmol/L (98-107); Estimated GFR-MDRD 79; Globulin 1.9 g/dL (2.4-3.5); Glucose 126 mg/dL (83-110); Potassium 4.4 mmol/L (3.5-5.1); Protein, Total 5.1 g/dL (6.0-8.3); Sodium 134 mmol/L (136-145)
[2020-01-07] MEDS: Acetaminophen 325 MG TAB PO PRN ×3 (04:34→20:39)
[2020-01-07] MEDS: Pantoprazole 80 MG in Sodium Chloride 0.9% 100 ML IVP SCH ×2 (04:56→15:02)
--- NOTE | 2020-01-07 07:36 | PDOC.HOSPP ---
- Subjective Encounter Date: 01/07/20 Encounter Time: 10:00 Subjective: No events overnight. Patient confirmed to me that she wants to be a DNAR. - Objective Vital Signs & Weight: Vital Signs (12 hours) Temp Pulse Ox 01/07/20 04:02 100 01/07/20 03:44 98.0 F 01/06/20 23:39 98.0 F 01/06/20 20:00 98 Weight Weight 150 lb 5.684 oz Most Recent Monitor Data Heart Rate from ECG 96 NIBP 99/60 NIBP BP-Mean 73 Respiration from ECG 21 SpO2 98 I&O: 01/06/20 01/07/20 01/08/20 06:59 06:59 06:59 Intake Total 2490 Output Total 2450 Balance 40 Result Diagrams: 01/07/20 10:28 01/07/20 02:55 Hospitalist ROS - Review of Systems Constitutional: denies: fever, chills Respiratory: denies: cough, shortness of breath Cardiovascular: denies: chest pain, palpitations Gastrointestinal: denies: nausea, vomiting, abdominal pain, diarrhea, constipation, melena - Medication Medications: Active Medications Generic Name Dose Route Start Last Admin Trade Name Freq PRN Reason Stop Dose Admin Acetaminophen 650 mg 01/05/20 14:11 01/07/20 04:34 Tylenol PO 650 mg Q4H PRN Administration Headache/Fever/Mild Pain (1-3) Ceftriaxone Sodium 1 gm/ 100 mls @ 200 mls/hr 01/05/20 15:00 01/06/20 16:51 Sodium Chloride IVPB 100 mls Q24HR IVANA Administration Pantoprazole Sodium 80 mg/ 100 mls @ 10 mls/hr 01/05/20 14:11 01/07/20 04:56 Sodium Chloride IVP 100 mls INF IVANA Administration Octreotide Acetate 1,250 mcg/ 251.25 mls @ 5.02 mls/hr 01/05/20 18:15 21:35 Sodium Chloride IVPB 251.25 mls INF IVANA Administration 25 MCG/HR Sodium Chloride 1,000 mls @ 75 mls/hr 01/06/20 11:00 01/06/20 11:42 Normal Saline 0.9% IV Not Given .[id number] IVANA Sodium Chloride 10 ml 01/05/20 21:00 01/06/20 21:57 Flush - Normal Saline IVF 10 ml Q12HR IVANA Administration - Exam General Appearance: NAD, awake alert ENT: moist mucosa Heart: RRR, no murmur, no gallops, no rubs Respiratory: CTAB, no wheezes, no rales, no ronchi Gastrointestinal: soft, non-tender, non-distended, normal bowel sounds Psychiatric: normal affect, normal behavior, A&O x 3 Hosp A/P (1) UGIB (upper gastrointestinal bleed) Code(s): K92.2 - GASTROINTESTINAL HEMORRHAGE, UNSPECIFIED Status: Acute (2) Acute blood loss anemia Code(s): D62 - ACUTE POSTHEMORRHAGIC ANEMIA Status: Acute (3) Esophageal varices Code(s): I85.00 - ESOPHAGEAL VARICES WITHOUT BLEEDING Status: Acute (4) T12 vertebral fracture Code(s): S22.089A - UNSP FRACTURE OF T11-T12 VERTEBRA, INIT FOR CLOS FX Status : Acute (5) Alcoholic cirrhosis Code(s): K70.30 - ALCOHOLIC CIRRHOSIS OF LIVER WITHOUT ASCITES Status: Chronic Qualifiers: (6) Pancytopenia Code(s): D61.818 - OTHER PANCYTOPENIA Status: Chronic (7) Thrombocytopenia Code(s): D69.6 - THROMBOCYTOPENIA, UNSPECIFIED Status: Chronic (8) Hypertension Code(s): I10 - ESSENTIAL (PRIMARY) HYPERTENSION Status: Chronic Qualifiers: Hypertension type: essential hypertension Qualified Code(s): I10 - Essential (primary) hypertension - Plan Bleeding varices banded during EGD 01/06/2020 Hgb dropped to 6, transfused 1 unit this morning, recheck after transfusion Protonix and Octreotide drips PT/OT, clamshell brace for spinal fracture Patient discussed with palliative care and would like to be DNAR
[2020-01-07] MEDS: Sodium Chloride 0.9% 1,000 ML IV SCH ×3 (08:34→20:37)
[2020-01-07 10:33] LABS: Hemoglobin 6.2 g/dL (12.0-16.0)
[2020-01-07 14:52] LABS: Hemoglobin 7.8 g/dL (12.0-16.0); Platelet Count 45 thou/uL (130-400)
[2020-01-07] MEDS: cefTRIAXone\\ROCEPHIN 1 GM in Sodium Chloride 0.9% 100 ML IVPB SCH (16:26)
[2020-01-07] MEDS: Octreotide Acetate 1,250 MCG in Sodium Chloride 0.9% 250 ML 250 ML IVPB SCH (18:31)
[2020-01-07] MEDS ORDERED: Sodium Chloride 0.9% (PF) 10 ML VIAL FS PRN (23:51)
[2020-01-08] MEDS: Acetaminophen 325 MG TAB PO PRN (01:10)
[2020-01-08 06:14] LABS: #Eosinphils 0.1 thou/uL (0.0-0.7); #Lymphocytes 0.6 thou/uL (1.20-3.40); #Monocytes 0.2 thou/uL (0.11-0.59); #Neutrophils 0.9 thou/uL (1.40-6.50); %Eosinophils 4.7 % (0.0-10.0); %Lymphocytes 33.9 % (21.0-51.0); %Monocytes 10.7 % (0.0-10.0); %Neutrophils 49.8 % (42.0-75.0); Hemoglobin 7.6 g/dL (12.0-16.0); Mean Corpuscular Hemoglobin 28.2 pg (27.0-31.0); Mean Corpuscular Volume 85.4 fL (78.0-98.0); Mean Platelet Volume 8.5 fL (7.4-10.4); Platelet Count 49 thou/uL (130-400); RBC Distribution Width 19.4 % (11.5-14.5); Red Blood Cell (RBC) Count 2.69 mill/uL (4.20-5.40); White Blood Cell (WBC) Count 1.8 thou/uL (4.8-10.8)
[2020-01-08 06:35] LABS: Anion Gap 9 mmol/L (10-20); BUN (Urea Nitrogen) 12 mg/dL (9.8-20.1); Calc. Creatinine Clearance 74 mL/min (70-130); Calcium 8.8 mg/dL (7.8-10.44); Carbon Dioxide 22 mmol/L (23-31); Chloride 108 mmol/L (98-107); Estimated GFR-MDRD 76; Glucose 111 mg/dL (83-110); Potassium 4.2 mmol/L (3.5-5.1); Sodium 135 mmol/L (136-145)
--- NOTE | 2020-01-08 06:46 | PRG ---
DATE OF SERVICE: 01/07/2020 SUBJECTIVE: Ms. Nieto is feeling better. She has had no bleeding. She is tolerating liquids. Her back is not hurting too bad. I have talked with Dr. Beny Irwin, training mgr in [place]. He agrees that we should consider a TIPS as this is several esophageal variceal bleeds she has had now. She had an echocardiogram today, which showed an EF of 60% to 65% with normal right ventricular function. OBJECTIVE: VITAL SIGNS: Temperature is 98.4, blood pressure 117/70, pulse 92. GENERAL: She is alert and oriented to person, place and time. NECK: Supple. LUNGS: Clear. HEART: Regular rate and rhythm. No murmurs. ABDOMEN: Soft, slightly protuberant, but nontender without rebound or guarding. LABORATORY DATA: Hemoglobin 7.8. She received a unit of blood today, it was 6.2 in the morning. INR was 1.3 on the . Sodium 134, potassium 4.4, BUN and creatinine are 26 and 0.73 down from 56 and 0.88 yesterday and 86 and 0.86 on the . Alcohol was undetectable on admission. COVID-19, undetectable on admission. ASSESSMENT: 1. Upper GI bleed, recurrent, from varices banded yesterday. She has been on octreotide now for 48 hours. She has had no further bleeding. 2. Cirrhosis from alcohol abuse. She does not drink anymore. She has had some complications with mild ascites. No encephalopathy. She has preserved synthetic function with a bilirubin of 0.5, AST and ALT of 22 and 35, and a normal INR. Platelet count is 45,000, hemoglobin 7.8. As per her training mgr and primary forensic psychiatrist, Dr. Lua here, she would be an excellent candidate for TIPS. Decision had been made before this admission if she had further bleeds, consider transfer for evaluation for TIPS to [place]. 3. The patient has back trauma with a fracture of her lumbar back when she fell and she had syncope with her GI bleed. She is on a clamshell brace and is doing well. PLAN: 1. We will initiate transfer to [place]. I have talked with Dr. Beny Irwin about this to transfer there for TIPS. I have talked to the patient, her nurse, and the primary physician. 2. Continue to monitor labs. 3. We will wean off octreotide, change her IV Protonix to daily instead of a drip and tomorrow if she is going to stay here, we can resume her diuretics. If she is not transferred within 36 to 72 hours, she is doing well, we can discharge her to home and proceed with this workup in the outpatient setting. Job ID: [id number]
[2020-01-08] MEDS: Pantoprazole 40 MG VIAL IVP SCH (08:10)
[2020-01-08] MEDS ORDERED: Acetaminophen 650 MG Suppository PR PRN (09:18)
--- NOTE | 2020-01-08 09:23 | PDOC.HOSPP ---
- Subjective Encounter Date: 01/08/20 (f/u UGI bleed) Encounter Time: 09:19 Subjective: Pt without complaints. She reports discomfort with clamshell brace and transferring. She denies any n/v/abd pain. Reports flatus but no recent bm. - Objective Vital Signs & Weight: Vital Signs (12 hours) Temp Pulse Resp BP Pulse Ox 01/08/20 07:22 97.6 F 93 16 131/89 01/08/20 04:00 98.4 F 85 16 113/68 97 01/07/20 23:30 98.6 F 90 17 121/70 98 Weight Weight 150 lb 5.684 oz Most Recent Monitor Data Heart Rate from ECG 93 NIBP 114/65 NIBP BP-Mean 81 Respiration from ECG 39 SpO2 93 I&O: 01/07/20 01/08/20 01/09/20 06:59 06:59 06:59 Intake Total 2490 4095 Output Total 2450 1450 Balance 40 2645 Result Diagrams: 01/08/20 05:58 01/08/20 05:58 Hospitalist ROS - Medication Medications: Active Medications Generic Name Dose Route Start Last Admin Trade Name Freq PRN Reason Stop Dose Admin Ceftriaxone Sodium 1 gm/ 100 mls @ 200 mls/hr 01/05/20 15:00 01/07/20 16:26 Sodium Chloride IVPB 100 mls Q24HR IVANA Administration Pantoprazole Sodium 40 mg 01/08/20 09:00 01/08/20 08:10 Protonix IVP 40 mg DAILY IVANA Administration Sodium Chloride 10 ml 01/05/20 21:00 01/08/20 08:10 Flush - Normal Saline IVF 10 ml Q12HR IVANA Administration - Exam General Appearance: NAD Heart: RRR, no murmur Respiratory: CTAB Respiratory - other findings: anteriorly auscultated due to clamshell brace Gastrointestinal: soft, non-tender, non-distended, normal bowel sounds Extremities: no cyanosis, no clubbing, no edema Psychiatric: normal affect Hosp A/P (1) UGIB (upper gastrointestinal bleed) Code(s): K92.2 - GASTROINTESTINAL HEMORRHAGE, UNSPECIFIED Status: Acute (2) Symptomatic anemia Code(s): D64.9 - ANEMIA, UNSPECIFIED Status: Acute (3) T12 vertebral fracture Code(s): S22.089A - UNSP FRACTURE OF T11-T12 VERTEBRA, INIT FOR CLOS FX Status : Acute (4) Pancytopenia Code(s): D61.818 - OTHER PANCYTOPENIA Status: Chronic (5) Acute blood loss anemia Code(s): D62 - ACUTE POSTHEMORRHAGIC ANEMIA Status: Acute (6) Alcoholic cirrhosis Code(s): K70.30 - ALCOHOLIC CIRRHOSIS OF LIVER WITHOUT ASCITES Status: Chronic Qualifiers: Ascites presence: with ascites Qualified Code(s): K70.31 - Alcoholic cirrhosis of liver with ascites - Plan U GI bleed - secondary to varices s/p banding - appreciate GI management - on IV protonix - transfer initiated to [facility] for TIPS - no word on availability of a bed - continue monitoring hemoglobin - resume lasix and spironolactone tomorrow with hold parameters to avoid hypotension Cirrhosis - change tylenol order to no more than 2 grams in 24 hours - prn use Resume home vitamins T12 vertebral body fracture - needs f/u with Neurosurgery in 2 weeks for repeat xrays and to determine how long brace is needed dvt prophy - thrombocytopenia - none ordered gi prophy - on IV protonix for tx code status DNAR reviewed plan of care with patient, no questions or further needs at end of eval pt remains at high risk in current condition
[2020-01-08] MEDS: cefTRIAXone\\ROCEPHIN 1 GM in Sodium Chloride 0.9% 100 ML IVPB SCH (15:10)
[2020-01-08] MEDS ORDERED: Lidocaine 5% Patch TD SCH (20:30)
[2020-01-08] MEDS ORDERED: traMADol HCl 50 MG TAB PO SCH (20:30)
[2020-01-09 06:57] LABS: Anion Gap 9 mmol/L (10-20); BUN (Urea Nitrogen) 10 mg/dL (9.8-20.1); Calc. Creatinine Clearance 78 mL/min (70-130); Calcium 8.9 mg/dL (7.8-10.44); Carbon Dioxide 25 mmol/L (23-31); Chloride 105 mmol/L (98-107); Estimated GFR-MDRD 81; Glucose 103 mg/dL (83-110); Hemoglobin 7.4 g/dL (12.0-16.0); Mean Corpuscular HGB CONC 34.1 g/dL (32.0-36.0); Mean Corpuscular Hemoglobin 28.9 pg (27.0-31.0); Mean Corpuscular Volume 84.8 fL (78.0-98.0); Mean Platelet Volume 8.1 fL (7.4-10.4); Platelet Count 48 thou/uL (130-400); Potassium 3.8 mmol/L (3.5-5.1); RBC Distribution Width 19.9 % (11.5-14.5); Red Blood Cell (RBC) Count 2.54 mill/uL (4.20-5.40); Sodium 135 mmol/L (136-145); White Blood Cell (WBC) Count 1.4 thou/uL (4.8-10.8)
[2020-01-09 06:58] LABS: Eosinophils 8 % (0-10); Lymphocytes 38 % (21-51); MDiff Complete? YES; Monocytes 14 % (0-10); Neutrophil 40 % (42-75); Nucleated RBC 1 % (0); Platelet Morphology Comment Appears Decreased
[2020-01-09] MEDS: Furosemide 20 MG TAB PO SCH (08:45)
[2020-01-09] MEDS: Pantoprazole 40 MG VIAL IVP SCH (08:46)
[2020-01-09] MEDS: Cyanocobalamin (Vitamin B-12) 1,000 MCG TAB PO SCH (08:46)
[2020-01-09] MEDS: Folic Acid 1 MG TAB PO SCH (08:46)
[2020-01-09] MEDS: Lidocaine 5% Patch TD SCH (08:46)
[2020-01-09] MEDS: Spironolactone 100 MG TAB PO SCH (08:47)
--- NOTE | 2020-01-09 09:02 | PRG ---
DATE OF SERVICE: 01/08/2020 SUBJECTIVE: A 69-year-old female with liver cirrhosis, portal hypertension, bleeding esophageal varices. She underwent EGD and variceal banding by . The patient apparently lack of bed availability done well overnight. She has no abdominal pain, no nausea spinal fracture with a recent fall . She also PHYSICAL EXAMINATION: VITAL SIGNS: Afebrile, pulse LABORATORY: Chem-7 is normal . Creatinine CLINICAL IMPRESSION: 1. Gastrointestinal bleeding. 2. Liver cirrhosis. 3. Portal hypertension . 4. . RECOMMENDATIONS: 1. Advance diet to a low-salt, mechanical soft diet. 2. Awaiting transfer to . 3. May restart as before. Job ID: [id number]
[2020-01-09] MEDS ORDERED: Acetaminophen 500 MG TAB PO PRN (11:32)
--- NOTE | 2020-01-09 12:00 | PDOC.HOSPP ---
- Subjective Encounter Date: 01/09/20 (f/u Upper GI bleed) Encounter Time: 11:59 Subjective: Pt had some pain earlier. Is sitting up and getting more comfortable with wearing the brace. She denies any n/v. Reports that bowels are not moving. - Objective Vital Signs & Weight: Vital Signs (12 hours) Temp Pulse Resp BP Pulse Ox 01/09/20 08:00 98.0 F 99 18 115/74 99 Weight Weight 150 lb 5.684 oz Most Recent Monitor Data Heart Rate from ECG 93 NIBP 114/65 NIBP BP-Mean 81 Respiration from ECG 39 SpO2 93 I&O: 01/08/20 01/09/20 01/10/20 06:59 06:59 06:59 Intake Total 4095 140 Output Total 1450 Balance 2645 140 Result Diagrams: 01/09/20 06:00 01/09/20 06:00 Hospitalist ROS - Medication Medications: Active Medications Generic Name Dose Route Start Last Admin Trade Name Freq PRN Reason Stop Dose Admin Cyanocobalamin 1,000 mcg 01/09/20 09:00 01/09/20 08:46 Vitamin B-12 PO 1,000 mcg DAILY IVANA Administration Folic Acid 1 mg 01/09/20 09:00 01/09/20 08:46 Folvite PO 1 mg DAILY IVANA Administration Furosemide 40 mg 01/09/20 09:00 01/09/20 08:45 Lasix PO 40 mg DAILY IVANA Administration Lidocaine 1 patch 01/09/20 09:00 01/09/20 08:46 Lidoderm 5% Patch TD 1 patch DAILY IVANA Administration Pantoprazole Sodium 40 mg 01/08/20 09:00 01/09/20 08:46 Protonix IVP 40 mg DAILY IVANA Administration Sodium Chloride 10 ml 01/05/20 21:00 01/09/20 08:47 Flush - Normal Saline IVF 10 ml Q12HR IVANA Administration Spironolactone 100 mg 01/09/20 09:00 01/09/20 08:47 Aldactone PO 100 mg DAILY IVANA Administration - Exam General Appearance: NAD Heart: RRR, no murmur Respiratory: CTAB, no wheezes, no rales, no ronchi Gastrointestinal: soft, non-tender, non-distended, normal bowel sounds Extremities: no cyanosis, no clubbing, no edema Psychiatric: normal affect Hosp A/P (1) UGIB (upper gastrointestinal bleed) Code(s): K92.2 - GASTROINTESTINAL HEMORRHAGE, UNSPECIFIED Status: Acute (2) Symptomatic anemia Code(s): D64.9 - ANEMIA, UNSPECIFIED Status: Acute (3) T12 vertebral fracture Code(s): S22.089A - UNSP FRACTURE OF T11-T12 VERTEBRA, INIT FOR CLOS FX Status : Acute (4) Pancytopenia Code(s): D61.818 - OTHER PANCYTOPENIA Status: Chronic (5) Acute blood loss anemia Code(s): D62 - ACUTE POSTHEMORRHAGIC ANEMIA Status: Acute (6) Alcoholic cirrhosis Code(s): K70.30 - ALCOHOLIC CIRRHOSIS OF LIVER WITHOUT ASCITES Status: Chronic Qualifiers: Ascites presence: with ascites Qualified Code(s): K70.31 - Alcoholic cirrhosis of liver with ascites - Plan U GI bleed - secondary to varices s/p banding - appreciate GI management - on IV protonix - transfer initiated to [facility] for TIPS - by report from transfer center the clinical info has not been reviewed as of yesterday - continue monitoring hemoglobin - lasix and spironolactone started today - d/w Dr. Goel and can d/c Rocephin Cirrhosis - low dose tylenol or tramadol prn for pain Constipation - scheduled miralax and prn lactulose T12 vertebral body fracture - f/u Dr. Iqbal in 2 weeks for re-eval and repeat xrays dvt prophy - thrombocytopenia - none ordered gi prophy - on IV protonix for tx code status DNAR reviewed plan of care with patient, no questions or further needs at end of eval pt remains at high risk in current condition
--- NOTE | 2020-01-09 12:17 | PRG ---
DATE OF SERVICE: 01/09/2020 SUBJECTIVE: This is a 69-year-old female, hospitalized with GI bleeding and has undergone EGD and variceal banding. The patient needs to have TIPS procedure done. She is being considered in [facility] in [place]. She is awaiting transfer to [facility]. The patient is tolerating mechanical soft diet. No abdominal pain, no nausea, no vomiting. She has had no stool today. PHYSICAL EXAMINATION: GENERAL: Appears comfortable. VITAL SIGNS: Stable, afebrile, pulse is 99, blood pressure is . HEART: She has normal heart sounds. LUNGS: Clear to auscultation. ABDOMEN: Soft and nontender. LABORATORY DATA: Nothing has changed, she has pancytopenia, WBC 1400, platelet count 48,000, hemoglobin 7.4, hematocrit . RECOMMENDATIONS: 1. Continue present treatment. 2. Transfer to [facility] when bed is available. Job ID: [id number]
[2020-01-09] MEDS: Polyethylene Glycol 3350 17 GM Packet PO SCH (12:30)
[2020-01-09] MEDS: traMADol HCl 50 MG TAB PO PRN (18:19)
[2020-01-09] MEDS ORDERED: Lidocaine Patch Removal TOP SCH (21:00)
[2020-01-10 06:01] LABS: Anion Gap 10 mmol/L (10-20); BUN (Urea Nitrogen) 10 mg/dL (9.8-20.1); Calc. Creatinine Clearance 79 mL/min (70-130); Calcium 8.8 mg/dL (7.8-10.44); Carbon Dioxide 26 mmol/L (23-31); Chloride 102 mmol/L (98-107); Estimated GFR-MDRD 82; Glucose 101 mg/dL (83-110); Potassium 3.8 mmol/L (3.5-5.1); Sodium 134 mmol/L (136-145)
[2020-01-10 06:14] LABS: Band 2 % (5-11); Eosinophils 2 % (0-10); Hemoglobin 6.8 g/dL (12.0-16.0); Hypochromia SLIGHT = 6-15 cells (100X) (0-5/hpf); Lymphocytes 46 % (21-51); MDiff Complete? YES; Mean Corpuscular HGB CONC 32.9 g/dL (32.0-36.0); Mean Corpuscular Volume 85.2 fL (78.0-98.0); Monocytes 6 % (0-10); Neutrophil 44 % (42-75); Platelet Count 50 thou/uL (130-400); Platelet Morphology Comment Appears Decreased; RBC Distribution Width 19.7 % (11.5-14.5); Red Blood Cell (RBC) Count 2.41 mill/uL (4.20-5.40); White Blood Cell (WBC) Count 1.2 thou/uL (4.8-10.8)
--- NOTE | 2020-01-10 07:05 | PDOC.HOSPP ---
- Subjective Encounter Date: 01/10/20 (f/u GI bleed) Encounter Time: 07:02 Subjective: Ms. Nieto was admitted for weakness, s/p fall with vertebral fracture, and sx anemia with hx of cirrhosis and variceal bleed. She was transfused, underwent endoscopy with variceal banding. She has remained in the hospital to ensure stability and awaiting transfer to [place] for TIPS procedure. Pt without complaints, reports she is feeling well. Sitting up in a chair. She has not seen any bleeding, has not had a bm. - Objective Vital Signs & Weight: Vital Signs (12 hours) Temp Pulse Resp BP Pulse Ox 01/09/20 20:00 98 01/09/20 19:49 98.9 F 96 17 118/70 98 Weight Weight 150 lb 5.684 oz Most Recent Monitor Data Heart Rate from ECG 93 NIBP 114/65 NIBP BP-Mean 81 Respiration from ECG 39 SpO2 93 I&O: 01/09/20 01/10/20 01/11/20 06:59 06:59 06:59 Intake Total 140 Balance 140 Result Diagrams: 01/10/20 05:20 01/10/20 05:20 Hospitalist ROS - Medication Medications: Active Medications Generic Name Dose Route Start Last Admin Trade Name Freq PRN Reason Stop Dose Admin Cyanocobalamin 1,000 mcg 01/09/20 09:00 01/09/20 08:46 Vitamin B-12 PO 1,000 mcg DAILY IVANA Administration Folic Acid 1 mg 01/09/20 09:00 01/09/20 08:46 Folvite PO 1 mg DAILY IVANA Administration Furosemide 40 mg 01/09/20 09:00 01/09/20 08:45 Lasix PO 40 mg DAILY IVANA Administration Lidocaine 1 patch 01/09/20 09:00 01/09/20 08:46 Lidoderm 5% Patch TD 1 patch DAILY IVANA Administration Miscellaneous Medication 1 each 01/09/20 21:00 01/09/20 21:01 Lidocaine Patch Removal TOP Not Given HS IVANA Pantoprazole Sodium 40 mg 01/08/20 09:00 01/09/20 08:46 Protonix IVP 40 mg DAILY IVANA Administration Polyethylene Glycol 17 gm 01/09/20 12:00 01/09/20 12:30 Miralax PO 17 gm Q24H IVANA Administration Sodium Chloride 10 ml 01/05/20 21:00 01/09/20 21:01 Flush - Normal Saline IVF 10 ml Q12HR IVANA Administration Spironolactone 100 mg 01/09/20 09:00 01/09/20 08:47 Aldactone PO 100 mg DAILY IVANA Administration Tramadol HCl 50 mg 01/09/20 11:32 01/09/20 18:19 Ultram PO 50 mg Q8H PRN Administration Moderate Pain (4-6) - Exam General Appearance: NAD Heart: RRR, no murmur Respiratory: no wheezes, no rales, no ronchi Respiratory - other findings: superior auscultation secondary to clamshell brace Gastrointestinal: soft, non-tender, non-distended, normal bowel sounds Extremities: no cyanosis, no clubbing, no edema Psychiatric: normal affect Hosp A/P (1) UGIB (upper gastrointestinal bleed) Code(s): K92.2 - GASTROINTESTINAL HEMORRHAGE, UNSPECIFIED Status: Acute (2) Symptomatic anemia Code(s): D64.9 - ANEMIA, UNSPECIFIED Status: Acute (3) T12 vertebral fracture Code(s): S22.089A - UNSP FRACTURE OF T11-T12 VERTEBRA, INIT FOR CLOS FX Status : Acute (4) Pancytopenia Code(s): D61.818 - OTHER PANCYTOPENIA Status: Chronic (5) Acute blood loss anemia Code(s): D62 - ACUTE POSTHEMORRHAGIC ANEMIA Status: Acute (6) Alcoholic cirrhosis Code(s): K70.30 - ALCOHOLIC CIRRHOSIS OF LIVER WITHOUT ASCITES Status: Chronic Qualifiers: Ascites presence: with ascites Qualified Code(s): K70.31 - Alcoholic cirrhosis of liver with ascites - Plan U GI bleed - secondary to varices s/p banding - appreciate GI management - Hb 6.8 - will order 1 unit PRBC - will message Dr. Morley - no signs of overt bleeding - on IV protonix - transfer initiated to [facility] for TIPS - awaiting word on this - no action taken by that hospital over the weekend - spironolactone and furosemide started yesterday Cirrhosis - low dose tylenol or tramadol prn for pain Constipation - scheduled miralax and prn lactulose T12 vertebral body fracture - f/u Dr. Iqbal in 2 weeks for re-eval and repeat xrays dvt prophy - thrombocytopenia - none ordered gi prophy - on IV protonix for tx code status DNAR reviewed plan of care with patient, no questions or further needs at end of eval pt remains at high risk in current condition Addendum 10:56 - spoke with Hospitalist in [place] and pt is accepted in transfer. Message sent to Dr. Goldberg. Blood ordered earlier is pending - by report due to antibody positive status. If blood is not available in this hospital, will not wait for it to be shipped here - pt is hemodynamically stable without signs of overt bleeding to justify delaying transfer.
[2020-01-10] MEDS: Cyanocobalamin (Vitamin B-12) 1,000 MCG TAB PO SCH (08:27)
[2020-01-10] MEDS: Spironolactone 100 MG TAB PO SCH (08:27)
[2020-01-10] MEDS: Furosemide 20 MG TAB PO SCH (08:27)
[2020-01-10] MEDS: Folic Acid 1 MG TAB PO SCH (08:27)
[2020-01-10] MEDS: Pantoprazole 40 MG VIAL IVP SCH (08:28)
[2020-01-10] MEDS: Lidocaine 5% Patch TD SCH (08:28)
[2020-01-10] MEDS: traMADol HCl 50 MG TAB PO PRN ×2 (08:29→18:28)
--- NOTE | 2020-01-10 10:02 | PRG ---
DATE OF SERVICE: 01/10/2020 SUBJECTIVE: Ms. Nieto is feeling well. She has had no evidence of any overt bleeding in the past several days. No bowel movements for the past couple of days, but she is not having any abdominal pain. Appetite is good. No nausea or vomiting. Hemoglobin did drift down further to 6.8, so she is getting one more unit of packed RBCs today. OBJECTIVE: VITAL SIGNS: Temperature 97.6, pulse 93, blood pressure 123/73, and 99% oxygen saturation on room air. GENERAL: No acute distress. HEART: Regular rate and rhythm. LUNGS: Clear to auscultation bilaterally. ABDOMEN: Flat. Bowel sounds present. Soft, nontender to palpation. EXTREMITIES: No peripheral edema. LABORATORY STUDIES: WBC 1.2, hemoglobin 6.8, platelets 50. INR 1.3. Sodium 134, potassium 3.8, BUN only 10, and creatinine 0.70. ASSESSMENT AND PLAN: 1. Esophageal variceal hemorrhage, status post variceal band ligation. Note that a band was placed just distal to the Z-line and further varices were banded in the distal esophagus, occurred on 01/06/2020. 2. Acute blood loss anemia, stabilized. 3. Pancytopenia. The patient does have significant pancytopenia, likely as a consequence of her cirrhosis. Hemoglobin continues to drift down, but there is no further evidence of overt bleeding. She is off octreotide. Agree with one further unit RBC transfusion and continued observation today. 4. Cirrhosis. I understand that the transfer process is moving along with a view toward getting her transferred to [facility] for TIPS placement. The patient has had recurrent variceal bleeding and so I agree with this plan. She is clinically stable today. Monitor H and H and clinical status, hopefully can get her transfer for TIPS in the next day or two. Job ID: [id number]
--- NOTE | 2020-01-10 12:40 | DIS ---
DATE OF ADMISSION: 01/05/2020 DATE OF DISCHARGE: 01/10/2020 CONSULTANTS: 1. Neurosurgery, Dayana King PA-C. 2. Gastroenterology. PROCEDURES PERFORMED: EGD and blood transfusion. DISCHARGE DISPOSITION: [place] for TIPS procedure as an inpatient. MEDICATIONS: At time of discharge: 1. Tylenol 500 mg q.6 hours p.r.n. 2. Vitamin B12 of 1000 mcg daily. 3. Folic acid 1 mg daily. 4. Lasix 40 mg daily. 5. Lactulose 30 mL equals 20 g daily as needed for constipation. 6. Lidoderm patch one patch 12 hours on and 12 hours off as needed. 7. Zofran ODT 4 mg q.6 hours p.r.n. 8. Pantoprazole 40 mg IV daily. 9. MiraLAX 17 g daily. 10. Senokot-S two tablets p.o. b.i.d. p.r.n. constipation. 11. Spironolactone 100 mg daily. 12. Tramadol 50 mg q.8 hours p.r.n. for pain. FINAL DIAGNOSES: 1. Esophageal variceal bleed, status post banding. 2. [id number] anemia, status post blood transfusion. 3. History of cirrhosis. 4. Pancytopenia consistent with chronic liver disease. 5. T12 vertebral fracture. HISTORY OF PRESENT ILLNESS: Ms. Nieto is a 69-year-old female with history of cirrhosis secondary to alcohol, previous variceal bleed, who reported to the emergency room with nausea and vomiting as well as generally feeling weak. She had a fall a few days prior and hit her head, and was complaining also of headache and low back pain. In the emergency room, she was found to have a T12 fracture, a hemoglobin of 6.8 for which transfusion was initiated. She also had heme- positive stool and was admitted to the hospital for further evaluation and treatment. HOSPITAL COURSE: For T12 fracture, the patient was evaluated by Neurosurgery, who recommended a clamshell brace and follow up in the outpatient setting in about two weeks for re-evaluation. Repeat x-rays will be performed at that time and further determination of how long the brace is needed will occur. Variceal bleed. The patient was evaluated by GI, she underwent an EGD the following day, which identified one esophageal varices with stigmata of recent bleeding, that was banded, and three other varices that were banded with jenise sign, but no active bleeding. It also demonstrated portal hypertensive gastropathy. She was treated with octreotide and IV Protonix. After the banding, her diet was advanced to liquids and she has tolerated this well. She has had no overt signs of bleeding while here. Her hemoglobin on initial presentation was 6.8, she has been transfused 2 units that occurred on January 04 and January 06. Yesterday, her hemoglobin was 7.4 and today, it is 6.8. If blood is available, I am transfusing her one additional unit prior to transfer. With a history of variceal bleeds and recurrent bleeding, GI recommended transfer for a TIPS procedure in [place]. The patient has been accepted there today and is hemodynamically stable and ready for discharge. She has been maintained on IV Protonix changed to once daily. She was treated with Rocephin from January 04 through January 08. She has not shown any signs of infection. The patient does have a pancytopenia, her white blood cell count today is 1.2, at the highest, it was 6.4, but it has generally been in the 1 and 2 range. Her platelets have been low and ranged from the 40s to 50s. The patient was restarted on her Lasix and spironolactone yesterday and has tolerated these well. Her blood pressure has remained in the 110s to 120s systolic. The patient has overall done well, she does meet criteria for transfer and has been accepted in transfer down to [place]. PHYSICAL EXAMINATION: VITAL SIGNS: On day of discharge, blood pressure 123/73, pulse 93, respirations 16, temperature 97.6, and sats 99% on room air. GENERAL: Awake, alert, responsive, not in apparent distress, able to speak in full sentences. LUNGS: Clear to auscultation, auscultated superiorly due to the clamshell brace. No audible wheezing, rhonchi, or rales. HEART: Normal S1 and S2. Regular rate and rhythm. No significant murmur. ABDOMEN: Soft with present bowel sounds. EXTREMITIES: No edema. CASTELLANO FINDINGS AND TEST RESULTS: Her CBC today 1.2, 6.8, 20.5, 50 with 44% neutrophils and 46% lymphocytes. This was prior to transfusion. On admission, her CBC was 6.4, 6.8, 20.6, and 90. INR 1.3 on January 04. Chemistry today 134, 3.8, 102, 26, 10, 0.7, and 82. Liver function on January 06, total bilirubin 0.5, AST 22, ALT 35, alkaline phosphatase 61, total protein 5.1, and albumin 3.2. On admission, salicylate, Tylenol, and plasma alcohol are negative. COVID negative. Echocardiogram on January 06 shows an EF of 60% to 65% and left ventricular size is normal. EGD reports noted above on January 05. Cervical spine CT on January 04, no evidence of fracture or traumatic subluxation. Brain CT on January 04, no evidence of intracranial process. Lumbar spine CT on January 04 shows T12 vertebral body fracture involving the entire aspect of the vertebral body, multilevel degenerative changes. Reviewed with the patient this morning the plan of care and potential for transfer for which she is agreeable. DIET: Diet has been a low-sodium, mechanical soft. ACTIVITY: As tolerated. Thank you so much for accepting this patient in transfer. Job ID: [id number] [facility]
[2020-01-10] MEDS: Polyethylene Glycol 3350 17 GM Packet PO SCH (13:20)
[2020-01-10 19:45] VITALS: BP 113/69; TEMP 98.9
== END 2020-01-10 20:20 | disposition short-term general hospital (02) | DRG 441 ==
LOC: ERS 07:12 → ERHOLD 11:07 → IMCU/EMU 18:33 → T4-A 01-07 23:43
PROVIDERS: ADMIT Emergency Medicine; ATTEND Emergency Medicine
PROC: 30233N1 Transfusion of Nonautologous Red Blood Cells into Peripheral Vein, Percutaneous Approach (ICD-10-PCS; 2020-01-05)
PROC: 0HQ0XZZ Repair Scalp Skin, External Approach (ICD-10-PCS; 2020-01-05)
PROC: 06L38CZ Occlusion of Esophageal Vein with Extraluminal Device, Via Natural or Artificial Opening Endoscopic (ICD-10-PCS; principal; 2020-01-06)
DX: K76.6 Portal hypertension (principal); I85.11 Secondary esophageal varices with bleeding; S22.089A Unspecified fracture of T11-T12 vertebra, initial encounter for closed fracture; D61.818 Other pancytopenia; D62 Acute posthemorrhagic anemia; Z66 Do not resuscitate; Z51.5 Encounter for palliative care; Z11.59 Encounter for screening for other viral diseases; K31.89 Other diseases of stomach and duodenum; S01.01XA Laceration without foreign body of scalp, initial encounter; I10 Essential (primary) hypertension; D73.1 Hypersplenism; K44.9 Diaphragmatic hernia without obstruction or gangrene; K70.31 Alcoholic cirrhosis of liver with ascites; K59.00 Constipation, unspecified; W18.30XA Fall on same level, unspecified, initial encounter; Y92.002 Bathroom of unspecified non-institutional (private) residence as the place of occurrence of the external cause; Z91.011 Allergy to milk products; Z79.899 Other long term (current) drug therapy
CPT/HCPCS: 12001; 36415; 36430; 36600; 70450; 72125; 72131; 80048; 80053; 80307; 82274; 84484; 85025; 85610; 85730; 86850; 86870; 86900; 86901; 86922; 87635; 93005; 93306; 96365; 96366; 96374; 96375; C9113; J0696; J1100; J2270; J2354; J2405; J2704; J3490; J7050; L0639; P9016; U0003

== ENCOUNTER 2020-02-22 10:30 | Outpatient (CLI) | payer BC ==
--- NOTE | 2020-02-22 12:10 | RAD ---
LUMBAR SPINE SERIES 2 VIEWS: Date: 02/22/2020 COMPARISON: 02/02/2020 study. HISTORY: Follow-up compression fracture. FINDINGS: Compression changes of the T12 vertebral body are stable. Marked arthritic changes of the spine and s coliosis again demonstrated. No interval change. Portocaval shunt is noted. IMPRESSION: Stable overall exam. POS: TAMAR
== END 2020-02-22 10:31 | disposition home or self-care (01) ==
LOC: BICRAD 10:30
PROVIDERS: ATTEND Surgery
DX: S22.080A Wedge compression fracture of T11-T12 vertebra, initial encounter for closed fracture (principal); W19.XXXA Unspecified fall, initial encounter
CPT/HCPCS: 72100

== ENCOUNTER 2020-04-05 09:22 | Outpatient (CLI) | payer BC ==
--- NOTE | 2020-04-05 11:13 | RAD ---
LUMBAR SPINE 2 VIEWS: Date: 04/05/2020 HISTORY: T12 compression. COMPARISON: 02/22/2020. FINDINGS: The compression deformity at T12 is again noted. There is anterior wedge compression with loss of ant erior height. The compression deformity appears stable from 02/22/2020. Degenerative changes in the lumbar vertebra again noted without interval change. Mild scoliotic curvature is seen in the AP projection. There is a calcific density to the right of th e L2 vertebra which is a stable finding. IMPRESSION: No interval change. POS: AGW
== END 2020-04-05 09:23 | disposition home or self-care (01) ==
LOC: BICRAD 09:22
PROVIDERS: ATTEND Surgery
DX: S22.088A Other fracture of T11-T12 vertebra, initial encounter for closed fracture (principal); W19.XXXA Unspecified fall, initial encounter
CPT/HCPCS: 72100

== ENCOUNTER 2022-02-22 11:57 | Outpatient (CLI) | payer MEDICARE, BC | END 2022-02-22 11:58 | disposition home or self-care (01) | LOC: BICMAMMO 11:57 | PROVIDERS: ATTEND Internal Medicine | DX: Z12.31 Encounter for screening mammogram for malignant neoplasm of breast (principal); Z80.3 Family history of malignant neoplasm of breast | CPT/HCPCS: 77063; 77067 ==

== ENCOUNTER 2022-03-25 09:02 | Outpatient (CLI) | payer MEDICARE, BC | END 2022-03-25 09:03 | disposition home or self-care (01) | LOC: SCSMRI 09:02 | PROVIDERS: ATTEND Physician Assistant Medical | DX: K74.60 Unspecified cirrhosis of liver (principal); I85.00 Esophageal varices without bleeding; K86.2 Cyst of pancreas; K76.82 Hepatic encephalopathy; R16.1 Splenomegaly, not elsewhere classified; N28.1 Cyst of kidney, acquired | CPT/HCPCS: 74183; 82565 ==

== ENCOUNTER 2022-06-07 07:02 | Day surgery (SDC) | payer MEDICARE, BC ==
[2022-06-05 14:38] VITALS: BMI 25.4
[2022-06-07] MEDS ORDERED: Midazolam HCl 2 mg/2 ml Vial ONE (08:53)
[2022-06-07] MEDS ORDERED: PROPOFOL 200 MG/20 ML VIAL ONE (09:05)
== END 2022-06-07 12:10 | disposition home or self-care (01) ==
LOC: SDC 07:02
PROVIDERS: ATTEND Internal Medicine Gastroenterology
PROC: 0W3P8ZZ Control Bleeding in Gastrointestinal Tract, Via Natural or Artificial Opening Endoscopic (ICD-10-PCS; principal; 2022-06-07)
PROC: 0DBG8ZX Excision of Left Large Intestine, Via Natural or Artificial Opening Endoscopic, Diagnostic (ICD-10-PCS; 2022-06-07)
PROC: 0DBF8ZX Excision of Right Large Intestine, Via Natural or Artificial Opening Endoscopic, Diagnostic (ICD-10-PCS; 2022-06-07)
PROC: 0DBM8ZX Excision of Descending Colon, Via Natural or Artificial Opening Endoscopic, Diagnostic (ICD-10-PCS; 2022-06-07)
DX: K31.811 Angiodysplasia of stomach and duodenum with bleeding (principal); D12.4 Benign neoplasm of descending colon; K70.31 Alcoholic cirrhosis of liver with ascites; K76.6 Portal hypertension; K31.89 Other diseases of stomach and duodenum; I85.10 Secondary esophageal varices without bleeding; K64.8 Other hemorrhoids; K64.4 Residual hemorrhoidal skin tags; D50.9 Iron deficiency anemia, unspecified; I10 Essential (primary) hypertension; K80.20 Calculus of gallbladder without cholecystitis without obstruction; F10.11 Alcohol abuse, in remission; K76.82 Hepatic encephalopathy; Z79.899 Other long term (current) drug therapy; Z91.011 Allergy to milk products
CPT/HCPCS: 74176; 88305; J2250; J2704

== ENCOUNTER 2022-06-26 17:52 | Inpatient (IN) | payer MEDICARE, BC ==
[2022-06-26 18:37] LABS: Hemoglobin 7.6 g/dL (12.0-16.0); Mean Corpuscular HGB CONC 31.3 g/dL (32.0-36.0); Mean Corpuscular Volume 86.2 fl (78.0-98.0); Mean Platelet Volume 8.1 fL (7.4-10.4); Platelet Count 59 10x3/uL (130-400); RBC Distribution Width 17.5 % (11.5-14.5); Red Blood Cell (RBC) Count 2.82 mill/uL (4.20-5.40); White Blood Cell (WBC) Count 1.4 10x3/uL (4.8-10.8)
[2022-06-26 18:47] LABS: INR-International Normal Ratio 1.3; PTT 35.1 sec (22.9-36.1); Prothrombin Time 16.7 sec (12.0-14.7)
[2022-06-26 18:56] LABS: Anisocytosis SLIGHT = 6-15 cells (100X) (0-5/hpf); Band 1 % (5-11); Eosinophils 1 % (0-10); Lymphocytes 49 % (21-51); MDiff Complete? YES; Monocytes 14 % (0-10); Neutrophil 33 % (42-75); Ovalocytes SLIGHT = 2-5 cells (100X) (0-1/hpf); Platelet Morphology Comment Appears Decreased; Polychromasia MODERATE = 3-4 cells (100X) (0-2/hpf); Reactive Lymphocytes 2 % (0-10); Reflex for Review?? NO
[2022-06-26 18:57] LABS: ALT (SGPT) 28 U/L (8-55); AST (SGOT) 38 U/L (5-34); Albumin 3.4 g/dL (3.4-4.8); Alkaline Phosphatase 97 U/L (40-110); Anion Gap 10 mmol/L (10-20); BUN (Urea Nitrogen) 36 mg/dL (9.8-20.1); Bilirubin, Total 1.2 mg/dL (0.2-1.2); Calc. Creatinine Clearance 0 mL/min (70-130); Calcium 9.8 mg/dL (7.8-10.44); Carbon Dioxide 29 mmol/L (23-31); Chloride 103 mmol/L (98-107); Estimated GFR 78; Globulin 2.9 g/dL (2.4-3.5); Glucose 100 mg/dL (83-110); Protein, Total 6.3 g/dL (5.8-8.1); Sodium 138 mmol/L (136-145)
[2022-06-26] MEDS ORDERED: Pantoprazole 40 MG VIAL ONE (20:06)
[2022-06-26] MEDS ORDERED: cefTRIAXone\\ROCEPHIN 1 GM VIAL ONE (20:26)
[2022-06-26] MEDS ORDERED: Octreotide Acetate 100 MCG/ML VIAL ONE ×2 (20:26→20:39)
[2022-06-26 22:23] VITALS: BMI 24.0
[2022-06-26] MEDS: Octreotide Acetate 1,250 MCG in Sodium Chloride 0.9% 250 ML 250 ML IVPB SCH (22:46)
[2022-06-27 07:38] LABS: Hemoglobin 6.9 g/dL (12.0-16.0)
[2022-06-27 08:00] LABS: ALT (SGPT) 25 U/L (8-55); AST (SGOT) 31 U/L (5-34); Alkaline Phosphatase 85 U/L (40-110); Anion Gap 8 mmol/L (10-20); BUN (Urea Nitrogen) 28 mg/dL (9.8-20.1); Bilirubin, Total 0.8 mg/dL (0.2-1.2); Calc. Creatinine Clearance 65 mL/min (70-130); Calcium 9.1 mg/dL (7.8-10.44); Carbon Dioxide 27 mmol/L (23-31); Chloride 107 mmol/L (98-107); Estimated GFR 81; Globulin 2.6 g/dL (2.4-3.5); Glucose 119 mg/dL (83-110); Magnesium 1.9 mg/dL (1.6-2.6); Phosphorus 3.3 mg/dL (2.3-4.7); Potassium 3.7 mmol/L (3.5-5.1); Protein, Total 5.6 g/dL (5.8-8.1); Sodium 138 mmol/L (136-145)
[2022-06-27] MEDS: Pantoprazole 40 MG VIAL IVP SCH ×2 (08:11→20:44)
[2022-06-27] MEDS: Folic Acid 1 MG TAB PO SCH (08:11)
[2022-06-27] MEDS: Rifaximin 550 MG TAB PO SCH ×2 (08:12→20:44)
[2022-06-27] MEDS: Cyanocobalamin (Vitamin B-12) 1,000 MCG TAB PO SCH (08:12)
[2022-06-27] MEDS ORDERED: Spironolactone 100 MG TAB PO SCH (09:00)
[2022-06-27] MEDS ORDERED: Furosemide 40 MG TAB PO SCH (09:00)
[2022-06-27 20:06] LABS: Hemoglobin 8.4 g/dL (12.0-16.0)
[2022-06-27] MEDS ORDERED: cefTRIAXone\\ROCEPHIN 1 GM in Sodium Chloride 0.9% 100 ML IVPB SCH (21:00)
[2022-06-28] MEDS: Octreotide Acetate 1,250 MCG in Sodium Chloride 0.9% 250 ML 250 ML IVPB SCH (04:54)
[2022-06-28 06:39] LABS: Hemoglobin 8.1 g/dL (12.0-16.0); Mean Corpuscular HGB CONC 31.7 g/dL (32.0-36.0); Mean Corpuscular Hemoglobin 27.5 pg (27.0-31.0); Mean Corpuscular Volume 86.6 fl (78.0-98.0); Mean Platelet Volume 8.6 fL (7.4-10.4); Platelet Count 46 10x3/uL (130-400); RBC Distribution Width 16.7 % (11.5-14.5); Red Blood Cell (RBC) Count 2.94 mill/uL (4.20-5.40); White Blood Cell (WBC) Count 0.9 10x3/uL (4.8-10.8)
[2022-06-28 06:57] LABS: ALT (SGPT) 22 U/L (8-55); AST (SGOT) 28 U/L (5-34); Alkaline Phosphatase 86 U/L (40-110); Anion Gap 10 mmol/L (10-20); BUN (Urea Nitrogen) 20 mg/dL (9.8-20.1); Bilirubin, Total 1.3 mg/dL (0.2-1.2); Calc. Creatinine Clearance 64 mL/min (70-130); Calcium 8.7 mg/dL (7.8-10.44); Carbon Dioxide 24 mmol/L (23-31); Chloride 107 mmol/L (98-107); Estimated GFR 80; Globulin 2.6 g/dL (2.4-3.5); Glucose 109 mg/dL (83-110); Potassium 3.9 mmol/L (3.5-5.1); Protein, Total 5.6 g/dL (5.8-8.1); Sodium 137 mmol/L (136-145)
[2022-06-28 07:38] LABS: Anisocytosis SLIGHT = 6-15 cells (100X) (0-5/hpf); Band 17 % (5-11); Eosinophils 3 % (0-10); Hypochromia SLIGHT = 6-15 cells (100X) (0-5/hpf); Lymphocytes 20 % (21-51); MDiff Complete? YES; Monocytes 26 % (0-10); Neutrophil 34 % (42-75); Platelet Morphology Comment Appears Decreased; Polychromasia SLIGHT = 2-3 cells (100X) (0-2/hpf); Tear Drops SLIGHT = 2-5 cells (100X) (0-1/hpf)
[2022-06-28] MEDS: Pantoprazole 40 MG VIAL IVP SCH (08:57)
[2022-06-28] MEDS: Cyanocobalamin (Vitamin B-12) 1,000 MCG TAB PO SCH (08:57)
[2022-06-28] MEDS: Folic Acid 1 MG TAB PO SCH (08:57)
[2022-06-28] MEDS: Rifaximin 550 MG TAB PO SCH (08:57)
[2022-06-28 11:15] VITALS: BP 111/72; TEMP 97.5
== END 2022-06-28 11:27 | disposition home or self-care (01) | DRG 394 ==
LOC: ERS 17:52 → SUATTDRO 17:52 → T4-B 21:15 → OBSVTOIN 06-27 12:08
PROVIDERS: ADMIT Internal Medicine; ATTEND Internal Medicine
PROC: 30233N1 Transfusion of Nonautologous Red Blood Cells into Peripheral Vein, Percutaneous Approach (ICD-10-PCS; principal; 2022-06-27)
DX: K64.8 Other hemorrhoids (principal); D61.818 Other pancytopenia; D62 Acute posthemorrhagic anemia; K76.6 Portal hypertension; K70.31 Alcoholic cirrhosis of liver with ascites; Z20.822 Contact with and (suspected) exposure to COVID-19; I10 Essential (primary) hypertension; I86.8 Varicose veins of other specified sites; K64.4 Residual hemorrhoidal skin tags; Z79.899 Other long term (current) drug therapy
CPT/HCPCS: 36415; 36430; 80053; 83735; 84100; 85014; 85018; 85025; 85610; 85730; 86850; 86870; 86900; 86901; 86922; 93005; C9113; J0696; J2354; J3490; J7050; P9016; U0003; U0005

== ENCOUNTER 2022-06-29 20:19 | Inpatient (IN) | payer MEDICARE, BC ==
[2022-06-29] MEDS ORDERED: cefTRIAXone\\ROCEPHIN 1 GM VIAL ONE (20:44)
[2022-06-29] MEDS ORDERED: Pantoprazole 40 MG VIAL ONE (20:44)
[2022-06-29 20:51] LABS: #Lymphocytes 1.2 thou/uL (1.20-3.40); #Monocytes 0.4 thou/uL (0.11-0.59); %Basophils 0.5 % (0.0-1.0); %Eosinophils 0.3 % (0.0-10.0); %Lymphocytes 25.6 % (21.0-51.0); %Monocytes 9.3 % (0.0-10.0); %Neutrophils 64.3 % (42.0-75.0); Hemoglobin 7.6 g/dL (12.0-16.0); Mean Corpuscular HGB CONC 32.4 g/dL (32.0-36.0); Mean Corpuscular Hemoglobin 27.7 pg (27.0-31.0); Mean Corpuscular Volume 85.5 fl (78.0-98.0); Platelet Count 111 10x3/uL (130-400); Red Blood Cell (RBC) Count 2.73 mill/uL (4.20-5.40); White Blood Cell (WBC) Count 4.6 10x3/uL (4.8-10.8)
[2022-06-29 22:19] LABS: ALT (SGPT) 24 U/L (8-55); AST (SGOT) 43 U/L (5-34); Albumin 2.6 g/dL (3.4-4.8); Alkaline Phosphatase 70 U/L (40-110); Anion Gap 14 mmol/L (10-20); BUN (Urea Nitrogen) 24 mg/dL (9.8-20.1); Bilirubin, Total 1.5 mg/dL (0.2-1.2); Calc. Creatinine Clearance 0 mL/min (70-130); Calcium 8.1 mg/dL (7.8-10.44); Carbon Dioxide 21 mmol/L (23-31); Chloride 108 mmol/L (98-107); Estimated GFR 75; Globulin 2.5 g/dL (2.4-3.5); Glucose 143 mg/dL (83-110); Lipase 53 U/L (8-78); Potassium 4.2 mmol/L (3.5-5.1); Protein, Total 5.1 g/dL (5.8-8.1); Sodium 139 mmol/L (136-145)
[2022-06-29] MEDS ORDERED: Octreotide Acetate 500 MCG/ML VIAL ONE (22:19)
[2022-06-29] MEDS ORDERED: Octreotide Acetate 1,250 MCG in Sodium Chloride 0.9% 250 ML 250 ML IVPB SCH (22:30)
[2022-06-30 00:31] LABS: Lactic Acid 1.1 mmol/L (0.5-2.2)
[2022-06-30 01:46] LABS: Bilirubin Negative (Negative); Blood, Urine Negative (Negative); Clarity Clear (Clear); Glucose, Urine (Dipstick) Normal (Negative); Ketone, Urine Negative (Negative); Leukocyte Negative Leu/uL (Negative); Nitrite Negative (Negative); Protein, Urine (Dipstick) 20 mg/dL (Neg-Trace); Specific Gravity, Urine 1.027 (1.002-1.036); Urobilinogen Normal mg/dL (Less than 2); pH, Urine 5.5 (5.0-9.0)
[2022-06-30 05:02] LABS: #Lymphocytes 0.8 thou/uL (1.20-3.40); #Monocytes 0.2 thou/uL (0.11-0.59); #Neutrophils 1.2 thou/uL (1.40-6.50); %Basophils 1.4 % (0.0-1.0); %Eosinophils 0.2 % (0.0-10.0); %Lymphocytes 34.5 % (21.0-51.0); %Monocytes 10.7 % (0.0-10.0); %Neutrophils 53.2 % (42.0-75.0); Hemoglobin 7.4 g/dL (12.0-16.0); Mean Corpuscular HGB CONC 32.9 g/dL (32.0-36.0); Mean Corpuscular Hemoglobin 28.2 pg (27.0-31.0); Mean Corpuscular Volume 85.8 fl (78.0-98.0); Mean Platelet Volume 8.3 fL (7.4-10.4); Platelet Count 58 10x3/uL (130-400); RBC Distribution Width 16.4 % (11.5-14.5); Red Blood Cell (RBC) Count 2.64 mill/uL (4.20-5.40); White Blood Cell (WBC) Count 2.2 10x3/uL (4.8-10.8)
[2022-06-30 05:13] LABS: Phosphorus 3.9 mg/dL (2.3-4.7)
[2022-06-30 05:15] LABS: ALT (SGPT) 23 U/L (8-55); AST (SGOT) 31 U/L (5-34); Albumin 2.8 g/dL (3.4-4.8); Alkaline Phosphatase 71 U/L (40-110); Anion Gap 12 mmol/L (10-20); BUN (Urea Nitrogen) 25 mg/dL (9.8-20.1); Bilirubin, Total 1.8 mg/dL (0.2-1.2); Calc. Creatinine Clearance 0 mL/min (70-130); Calcium 8.4 mg/dL (7.8-10.44); Carbon Dioxide 21 mmol/L (23-31); Chloride 109 mmol/L (98-107); Estimated GFR 76; Globulin 2.4 g/dL (2.4-3.5); Glucose 132 mg/dL (83-110); Magnesium 1.8 mg/dL (1.6-2.6); Protein, Total 5.2 g/dL (5.8-8.1); Sodium 138 mmol/L (136-145)
[2022-06-30] MEDS ORDERED: Furosemide 40 MG/4 ML VIAL ONE (08:16)
[2022-06-30] MEDS ORDERED: Folic Acid 1 MG TAB ONE (08:16)
[2022-06-30] MEDS ORDERED: Folic Acid 1 MG TAB PO SCH (09:00)
[2022-06-30] MEDS ORDERED: Pantoprazole 40 MG VIAL IVP SCH (09:00)
[2022-06-30] MEDS ORDERED: Spironolactone 100 MG TAB PO SCH (09:00)
[2022-06-30] MEDS ORDERED: Furosemide 20 MG TAB PO SCH (09:00)
[2022-06-30] MEDS ORDERED: Pantoprazole 40 MG VIAL ONE (10:04)
[2022-06-30] MEDS ORDERED: Furosemide 40 MG TAB ONE (10:05)
[2022-06-30] MEDS ORDERED: Fentanyl 250 MCG/5 ML VIAL ONE (13:51)
[2022-06-30] MEDS ORDERED: PROPOFOL 200 MG/20 ML VIAL ONE (13:58)
[2022-06-30] MEDS ORDERED: Dexamethasone 20 MG/5 ML VIAL ONE (13:58)
[2022-06-30] MEDS ORDERED: Lidocaine 1% PF 5 ML VIAL ONE (13:58)
[2022-06-30] MEDS ORDERED: Succinylcholine Chloride 100 MG/5 ML SYRINGE FS ONE (13:58)
[2022-06-30] MEDS ORDERED: Ondansetron PF 4 MG/2 ML Vial ONE (13:58)
[2022-06-30 16:02] VITALS: BMI 24.5
[2022-06-30] MEDS ORDERED: FLU VACC QS2022-23(65YR UP)/PF 240 MCG/0.7 ML SYRINGE IM ONE (16:30)
[2022-06-30] MEDS ORDERED: Octreotide Acetate 1,250 MCG in Sodium Chloride 0.9% 250 ML 250 ML IVPB SCH (17:00)
[2022-06-30 20:27] VITALS: BP 113/56; TEMP 97.6
[2022-06-30] MEDS ORDERED: cefTRIAXone\\ROCEPHIN 1 GM in Sodium Chloride 0.9% 100 ML IVPB SCH (21:00)
[2022-06-30] MEDS ORDERED: cefTRIAXone Sodium 1 MG in Syringe 0 ML IVPB SCH (21:00)
== END 2022-06-30 20:27 | disposition short-term general hospital (02) | DRG 300 ==
LOC: ERS 20:19 → ERHOLD 22:24 → 2NO 06-30 15:53
PROVIDERS: ADMIT Family Medicine; ATTEND Nurse Practitioner Family
PROC: 30233N1 Transfusion of Nonautologous Red Blood Cells into Peripheral Vein, Percutaneous Approach (ICD-10-PCS; 2022-06-29)
PROC: 0DJ08ZZ Inspection of Upper Intestinal Tract, Via Natural or Artificial Opening Endoscopic (ICD-10-PCS; principal; 2022-06-30)
DX: I86.4 Gastric varices (principal); D62 Acute posthemorrhagic anemia; K76.6 Portal hypertension; Z20.822 Contact with and (suspected) exposure to COVID-19; K31.819 Angiodysplasia of stomach and duodenum without bleeding; K31.89 Other diseases of stomach and duodenum; I10 Essential (primary) hypertension; K70.30 Alcoholic cirrhosis of liver without ascites; Z80.0 Family history of malignant neoplasm of digestive organs; Z91.011 Allergy to milk products; Z79.899 Other long term (current) drug therapy; Z98.890 Other specified postprocedural states; Z80.3 Family history of malignant neoplasm of breast
CPT/HCPCS: 36415; 36430; 80053; 81003; 83605; 83690; 83735; 84100; 85025; 86850; 86900; 86901; 86922; C9113; J0696; J1100; J1940; J2354; J2405; J2704; J3010; J7050; P9016; U0003; U0005

== ENCOUNTER 2022-10-17 07:10 | Observation (INO) | payer MEDICARE, BC ==
[2022-10-17 08:14] LABS: Mean Corpuscular HGB CONC 32.3 g/dL (32.0-36.0); Mean Corpuscular Hemoglobin 25.5 pg (27.0-31.0); Mean Platelet Volume 9.9 fL (7.4-10.4); Platelet Count 37 10x3/uL (130-400); RBC Distribution Width 17.1 % (11.5-14.5); Red Blood Cell (RBC) Count 3.53 mill/uL (4.20-5.40); White Blood Cell (WBC) Count 1.2 10x3/uL (4.8-10.8)
[2022-10-17 08:21] LABS: Bilirubin Negative (Negative); Blood, Urine Negative (Negative); Clarity Clear (Clear); Glucose, Urine (Dipstick) Normal (Negative); Ketone, Urine Negative (Negative); Leukocyte Negative Leu/uL (Negative); Nitrite Negative (Negative); Protein, Urine (Dipstick) Negative (Neg-Trace); Specific Gravity, Urine 1.013 (1.002-1.036); Urobilinogen Normal mg/dL (Less than 2)
[2022-10-17 08:30] LABS: Amphetamine Not Detected (NotDetected); Barbiturates Screen Not Detected (NotDetected); Benzodiazepine Screen Not Detected (NotDetected); Cocaine Metabolite Screen Not Detected (NotDetected); Methadone Not Detected (NotDetected); Methamphetamine Not Detected (NotDetected); Opiate Screen Not Detected (NotDetected); Oxycodone Screen Not Detected (NotDetected); Phencyclidine (PCP) Not Detected (NotDetected); THC/Cannabinoid Screen Not Detected (NotDetected); Tricyclic Screen Not Detected (NotDetected)
[2022-10-17 08:31] LABS: PTT 32.9 sec (22.9-36.1)
[2022-10-17 08:33] LABS: ALT (SGPT) 34 U/L (8-55); AST (SGOT) 42 U/L (5-34); Acetaminophen Less than 10.0 mcg/mL (10.0-30.0); Albumin 3.8 g/dL (3.4-4.8); Alcohol Less than 10 mg/dL (Less than 10); Alkaline Phosphatase 121 U/L (40-110); Anion Gap 15 mmol/L (10-20); BUN (Urea Nitrogen) 27 mg/dL (9.8-20.1); Bilirubin, Total 1.1 mg/dL (0.2-1.2); CK (CPK) 149 U/L (29-168); Calc. Creatinine Clearance 0 mL/min (70-130); Calcium 9.6 mg/dL (7.8-10.44); Carbon Dioxide 17 mmol/L (23-31); Chloride 112 mmol/L (98-107); Estimated GFR 70; Globulin 2.2 g/dL (2.4-3.5); Glucose 129 mg/dL (83-110); Potassium 4.2 mmol/L (3.5-5.1); Salicylate Less than 8.0 mg/dL (15.0-30.0); Sodium 140 mmol/L (136-145)
[2022-10-17 08:43] LABS: MDiff Complete? YES; Reflex for Review?? NO
[2022-10-17 08:44] LABS: Band 12 % (5-11); Hypochromia SLIGHT = 6-15 cells (100X) (0-5/hpf); Lymphocytes 24 % (21-51); Microcytosis SLIGHT = 6-15 cells (100X) (0-5/hpf); Monocytes 8 % (0-10); Neutrophil 56 % (42-75); Ovalocytes SLIGHT = 2-5 cells (100X) (0-1/hpf); Platelet Morphology Comment Appears Decreased; Polychromasia SLIGHT = 2-3 cells (100X) (0-2/hpf)
[2022-10-17 08:49] LABS: INR-International Normal Ratio 1.3; Prothrombin Time 16.9 sec (12.0-14.7)
[2022-10-17 11:07] LABS: Phosphorus 2.5 mg/dL (2.3-4.7)
[2022-10-17 13:34] VITALS: BMI 24.2
[2022-10-17] MEDS ORDERED: Calcium Carbonate 500 MG ChewTAB PO PRN (13:52)
[2022-10-17] MEDS ORDERED: Ondansetron ODT 4 MG TAB PO PRN (13:52)
[2022-10-17] MEDS ORDERED: Ondansetron PF 4 MG/2 ML Vial IVP PRN (13:52)
[2022-10-17] MEDS ORDERED: Pantoprazole 40 MG VIAL IVP SCH (14:00)
[2022-10-17] MEDS: Dextrose 5%-Lactated Ringers 1,000 ML IV SCH (14:47)
[2022-10-17] MEDS ORDERED: cefTRIAXone\\ROCEPHIN 1 GM in Sodium Chloride 0.9% 100 ML IVPB SCH (15:00)
[2022-10-17] MEDS: Pantoprazole 40 MG VIAL IVP SCH (20:13)
[2022-10-17] MEDS: Rifaximin 550 MG TAB PO SCH (20:14)
[2022-10-18] MEDS: Dextrose 5%-Lactated Ringers 1,000 ML IV SCH ×2 (00:38→07:15)
[2022-10-18 04:36] LABS: Hemoglobin 7.5 g/dL (12.0-16.0); Mean Corpuscular HGB CONC 32.1 g/dL (32.0-36.0); Mean Corpuscular Hemoglobin 26.1 pg (27.0-31.0); Mean Corpuscular Volume 81.2 fl (78.0-98.0); Platelet Count 36 10x3/uL (130-400); RBC Distribution Width 17.4 % (11.5-14.5); Red Blood Cell (RBC) Count 2.88 mill/uL (4.20-5.40); White Blood Cell (WBC) Count 1.1 10x3/uL (4.8-10.8)
[2022-10-18 04:51] LABS: ALT (SGPT) 29 U/L (8-55); AST (SGOT) 31 U/L (5-34); Albumin 3.1 g/dL (3.4-4.8); Alkaline Phosphatase 97 U/L (40-110); Anion Gap 9 mmol/L (10-20); BUN (Urea Nitrogen) 13 mg/dL (9.8-20.1); Calc. Creatinine Clearance 64 mL/min (70-130); Calcium 8.9 mg/dL (7.8-10.44); Carbon Dioxide 21 mmol/L (23-31); Chloride 115 mmol/L (98-107); Estimated GFR 74; Globulin 1.8 g/dL (2.4-3.5); Glucose 119 mg/dL (83-110); Magnesium 1.8 mg/dL (1.6-2.6); Potassium 3.7 mmol/L (3.5-5.1); Protein, Total 4.9 g/dL (5.8-8.1); Sodium 141 mmol/L (136-145)
[2022-10-18 08:07] VITALS: BP 107/50; TEMP 97.8
[2022-10-18] MEDS: Pantoprazole 40 MG VIAL IVP SCH (08:31)
[2022-10-18] MEDS: Rifaximin 550 MG TAB PO SCH (08:31)
[2022-10-18 09:15] LABS: Anisocytosis SLIGHT = 6-15 cells (100X) (0-5/hpf); Eosinophils 6 % (0-10); Lymphocytes 23 % (21-51); MDiff Complete? YES; Monocytes 10 % (0-10); Neutrophil 60 % (42-75); Ovalocytes SLIGHT = 2-5 cells (100X) (0-1/hpf); Polychromasia SLIGHT = 2-3 cells (100X) (0-2/hpf)
== END 2022-10-18 12:04 | disposition home or self-care (01) ==
LOC: ERS 07:10 → T4-B 13:12 → INTOOBSV 13:12
PROVIDERS: ADMIT Internal Medicine; ATTEND Internal Medicine
DX: K76.82 Hepatic encephalopathy (principal); E86.0 Dehydration; E87.20 Acidosis, unspecified; K70.30 Alcoholic cirrhosis of liver without ascites; K76.6 Portal hypertension; D61.818 Other pancytopenia; I12.9 Hypertensive chronic kidney disease with stage 1 through stage 4 chronic kidney disease, or unspecified chronic kidney disease; N18.2 Chronic kidney disease, stage 2 (mild); J98.11 Atelectasis; Z91.148 Patient's other noncompliance with medication regimen for other reason; Z79.01 Long term (current) use of anticoagulants; Z79.899 Other long term (current) drug therapy; Z88.8 Allergy status to other drugs, medicaments and biological substances; Z91.011 Allergy to milk products
CPT/HCPCS: 36415; 70450; 71045; 80053; 80306; 80307; 81003; 82140; 82550; 83690; 83735; 84100; 84484; 85025; 85610; 85730; 87040; 93005; C9113; J0696; J3490

== ENCOUNTER 2023-08-20 12:32 | Outpatient (CLI) | payer MEDICARE, BC | END 2023-08-20 12:33 | disposition home or self-care (01) | LOC: BICMAMMO 12:32 | PROVIDERS: ATTEND Internal Medicine | DX: Z12.31 Encounter for screening mammogram for malignant neoplasm of breast (principal); Z80.3 Family history of malignant neoplasm of breast | CPT/HCPCS: 77063; 77067 ==

== ENCOUNTER 2024-05-25 15:24 | Outpatient (CLI) | payer MEDICARE, BC ==
[~2024-05-25 15:24] MED LIST changes: -Dexamethasone 20 MG/5 ML VIAL ONE; -Glycopyrrolate 0.2 MG/ML 5 ML SYRINGE ONE; +Iopamidol 370 76% 100 ML VIAL ONE; -Lidocaine 1% PF 5 ML VIAL ONE; -Ondansetron PF 4 MG/2 ML Vial ONE; -PHENYLEPHRINE-NS 100 MCG/ML 10 ML SYRINGE ONE; -PROPOFOL 200 MG/20 ML VIAL ONE; -Rocuronium Bromide 10 MG/ML (10ML VIAL) ONE
== END 2024-05-25 15:25 | disposition home or self-care (01) ==
LOC: BICCT 15:24
PROVIDERS: ATTEND Internal Medicine
DX: K76.82 Hepatic encephalopathy (principal); K74.60 Unspecified cirrhosis of liver; R18.8 Other ascites; R16.1 Splenomegaly, not elsewhere classified; K80.20 Calculus of gallbladder without cholecystitis without obstruction; K86.9 Disease of pancreas, unspecified
CPT/HCPCS: 36415; 74170; 82565

== ENCOUNTER 2025-05-03 08:33 | Outpatient (CLI) | payer MEDICARE, BC ==
[2025-05-03 09:03] LABS: Estimated GFR - POC 76.0
[2025-05-03] MEDS ORDERED: Iopamidol 370 76% 100 ML VIAL ONE (11:18)
== END 2025-05-03 08:34 | disposition home or self-care (01) ==
LOC: CT 08:33
PROVIDERS: ATTEND Physician Assistant Medical
DX: K22.10 Ulcer of esophagus without bleeding (principal); K70.30 Alcoholic cirrhosis of liver without ascites; D61.818 Other pancytopenia; K72.90 Hepatic failure, unspecified without coma; R18.8 Other ascites; D50.9 Iron deficiency anemia, unspecified; E55.9 Vitamin D deficiency, unspecified; K80.20 Calculus of gallbladder without cholecystitis without obstruction; Z96.89 Presence of other specified functional implants
CPT/HCPCS: 36415; 74170; 82565